=== PATIENT | male | born 1945 | race Caucasian/White ===

== ENCOUNTER 2018-03-07 15:49 | Inpatient (IN) | payer OTHER, BC ==
[2018-03-07] MEDS ORDERED: SODIUM CHLORIDE 1,000 ML IV STA (16:21)
[2018-03-07] MEDS ORDERED: SODIUM CHLORIDE 0.9% 1000 ML INFUS.BAG IV ONE (16:22)
--- NOTE | 2018-03-07 16:28 | PDOC ---
Attending Attestation - Resident Resident Name: Rob Newman - ED Attending Attestation I have performed the following: I have examined & evaluated the patient, The case was reviewed & discussed with the resident, I agree w/resident's findings & plan, Exceptions are as noted - HPI HPI: 03/07/18 16:26 73 yo male wit h/o here with c/o fever 102 from [facility]. and hypotension. per ems pt with hypotension and fever. was given ceftriaxone earlier today for unknown source. has had a cough. no other known pmhx, . 03/07/18 16:29 additional history per [facility] nurse, pt with low grade fever since yesterday. ho hip surgery, PMHX: dvt , hip surgery - Physicial Exam PE: 03/07/18 16:27 awake drowsy, dry mucous membranes, lungs with bilateral crackles, heart reg tachycardia. abd soft nt nd. ext wwp. nuero awake oriented, skin warm and dry and no rash. - Medical Decision Making 03/07/18 16:28 differential: pna, sepsis, dehydration, renal failure, uti, plan iv hydration, septic workup. will cover for HCAP based on severe sepsis, and clinical exam. admit will likely require the ICU <Cate Santiago - Last Filed: 03/07/18 16:29> - HPI HPI: 03/07/18 16:48 The patient is a 73 year old male, with a significant past medical history of chronic embolism, schizophrenia, bipolar disorder, hip replacement, CHF, DVT(of LLE), and hypertension, who presents to the emergency department from [facility] for evaluation of altered mental status, hypotension, and fever since earlier today. Per EMS, the patient has been running a fever as high as 102 F. Since then patient had blood work done, which revealed a decrease in hemoglobin and hematocrit, but no white blood cell count. Per nursing staff, patient was started on Ceftriaxone for unknown source. However, today patient developed changes in mental status and became hypotensive. Patient denies any cough, chest pain, shortness of breath, diaphoresis, or palpitations. No other known pmhx. Allergies: NKDA - Physicial Exam PE: 03/07/18 16:48 GENERAL: Awake, drowsy, in no acute distress HEAD: No signs of trauma EYES: PERRLA, EOMI, sclera anicteric, conjunctiva clear ENT: Auricles normal inspection, hearing grossly normal, nares patent. dRY mucosa NECK: Normal ROM, supple, no lymphadenopathy, JVD, or masses LUNGS: Lungs with bilateral crackles. No wheezing. HEART: +Tachycardic. Regular rhythm, normal S1 and S2, no murmurs, rubs or gallops ABDOMEN: Soft, nontender, normoactive bowel sounds. No guarding, no rebound. No masses EXTREMITIES: Normal range of motion, no edema. No clubbing or cyanosis. No cords, erythema, or tenderness. DP/PT pulses 2+ and symmetric. Warm and well perfused. NEUROLOGICAL: Moves all extremities. Awake and oriented SKIN: Warm, Dry, normal turgor, no rashes or lesions noted. - Medical Decision Making 03/07/18 16:49 - Spoke to son, Zachariah Schulz at( [phone]) who reports the patient is typically with it at baseline and can converse with you. Patient is a full code. Documentation prepared by Chayo Riley, acting as medical collections representative for Cate Santiago MD. <Chayo Riley - Last Filed: 03/07/18 16:52>
[2018-03-07 16:50] LABS: BASO % 0.3 % (0-2.0); HEMATOCRIT 38.4 % (35.4-49); HEMOGLOBIN 13.2 GM/dL (11.7-16.9); LYMPH % 13.1 % (8-40); MCH 33.9 pg (25.7-33.7); MCHC 34.4 g/dl (32.0-35.9); MEAN CELL VOLUME 98.5 fl (80-96); MEAN PLT VOLUME 7.6 fl (7.5-11.1); MONO % 8.4 % (3.8-10.2); NEUT % 78.2 % (42.8-82.8); PLATELET COUNT 183 K/MM3 (134-434); WHITE BLOOD COUNT 7.2 K/mm3 (4.0-10.0)
[2018-03-07 16:58] LABS: INR 1.11 (0.82-1.09); PROTHROMBIN TIME (PATIENT) 12.5 SEC (9.7-13.0)
[2018-03-07 17:01] LABS: ACTIVATED PTT 54.1 SECONDS (26.9-34.4)
[2018-03-07 17:12] LABS: ALBUMIN 2.9 g/dl (3.4-5.0); ALK PHOS 86 U/L (45-117); ANION GAP 13 (8-16); BILIRUBIN,TOTAL 0.4 mg/dL (0.2-1.0); BLOOD UREA NITROGEN 41 mg/dL (7-18); CALCIUM 8.2 mg/dL (8.5-10.1); CHLORIDE 106 mmol/L (98-107); CO2 22 mmol/L (21-32); CREATININE 1.6 mg/dL (0.7-1.3); GLUCOSE,RANDOM 87 mg/dL (74-106); POTASSIUM 4.3 mmol/L (3.5-5.1); SGOT/AST 31 U/L (15-37); SGPT/ALT 14 U/L (12-78); SODIUM 141 mmol/L (136-145); TOT PROT 7.5 g/dl (6.4-8.2)
--- NOTE | 2018-03-07 17:18 | PDOC ---
History of Present Illness - General History Source: Patient, Care Provider, Family Exam Limitations: No Limitations <Cate Santiago - Last Filed: 03/07/18 17:55> - General History Source: Patient, Care Provider, Family Exam Limitations: No Limitations - History of Present Illness Initial Comments: 03/07/18 17:23 The patient is a 73 year old male, with a significant past medical history of chronic embolism, schizophrenia, bipolar disorder, hip replacement, CHF, DVT(of LLE), and hypertension, who presents to the emergency department from [facility] for evaluation of altered mental status, hypotension, and fever since earlier today. Per EMS, the patient has been running a fever as high as 102 F. Since then patient had blood work done, which revealed a decrease in hemoglobin and hematocrit, but no white blood cell count. Per nursing staff, patient was started on Ceftriaxone for unknown source. However, today patient developed changes in mental status and became hypotensive. Patient denies any cough, chest pain, shortness of breath, diaphoresis, or palpitations. No other known pmhx. Allergies: NKDA Past Surgical History: Hip replacement Social History: Non smoker. No ETOH <Chayo Riley - Last Filed: 03/07/18 18:25> - General Chief Complaint: Blood Pressure Problem Stated Complaint: Blood Pressure Problem Time Seen by Provider: 03/07/18 16:07 Past History - Past Medical History COPD: No GI Disorders: Yes (gerd) Psychiatric Problems: Yes (schioaffective) Other medical history: dvt - Suicide/Smoking/Psychosocial Hx Smoking History: Unknown if ever smoked Have you smoked in the past 12 months: No Information on smoking cessation initiated: No Hx Alcohol Use: No Drug/Substance Use Hx: No Substance Use Type: None <Cate Santiago - Last Filed: 03/07/18 17:55> <Chayo Riley - Last Filed: 03/07/18 18:25> - Past Medical History Allergies/Adverse Reactions: Allergies Allergy/AdvReac Type Severity Reaction Status Date / Time No Known Allergies Allergy Verified 03/07/18 18:14 Review of Systems - Review of Systems Able to Perform ROS?: Yes Comments:: 03/07/18 17:24 GENERAL/CONSTITUTIONAL: +Fever, drowsiness, low blood pressure. No chills. No weakness. HEAD, EYES, EARS, NOSE AND THROAT: No change in vision. No ear pain or discharge. No sore throat. CARDIOVASCULAR: No chest pain or shortness of breath. RESPIRATORY: No cough, wheezing, or hemoptysis. GASTROINTESTINAL: No nausea, vomiting, diarrhea or constipation. GENITOURINARY: No dysuria, frequency, or change in urination. MUSCULOSKELETAL: No joint or muscle swelling or pain. No neck or back pain. SKIN: No rash NEUROLOGIC: +Altered mental status. No headache, vertigo, loss of consciousness , or change in strength/sensation. ENDOCRINE: No increased thirst. No abnormal weight change. HEMATOLOGIC/LYMPHATIC: No anemia, easy bleeding, or history of blood clots. ALLERGIC/IMMUNOLOGIC: No hives or skin allergy. <Chayo Riley - Last Filed: 03/07/18 18:25> *Physical Exam - Vital Signs Last Vital Signs Temp Pulse Resp BP Pulse Ox 100.0 F H 72 25 H 93/56 92 L 03/07/18 16:07 03/07/18 16:54 03/07/18 16:54 03/07/18 16:54 03/07/18 16:54 <Cate Santiago - Last Filed: 03/07/18 17:55> - Vital Signs Last Vital Signs Temp Pulse Resp BP Pulse Ox 100.0 F H 72 25 H 93/56 92 L 03/07/18 16:07 03/07/18 16:54 03/07/18 16:54 03/07/18 16:54 03/07/18 16:54 - Physical Exam Comments: 03/07/18 17:23 GENERAL: Awake, drowsy, in no acute distress HEAD: No signs of trauma EYES: PERRLA, EOMI, sclera anicteric, conjunctiva clear ENT: Auricles normal inspection, hearing grossly normal, nares patent. dRY mucosa NECK: Normal ROM, supple, no lymphadenopathy, JVD, or masses LUNGS: Lungs with bilateral crackles. No wheezing. HEART:. Regular rate and rhythm, normal S1 and S2, no murmurs, rubs or gallops ABDOMEN: Soft, nontender, normoactive bowel sounds. No guarding, no rebound. No masses EXTREMITIES: Normal range of motion, no edema. No clubbing or cyanosis. No cords, erythema, or tenderness. DP/PT pulses 2+ and symmetric. Warm and well perfused. NEUROLOGICAL: Moves all extremities. Awake and orientedx2. Lethargic SKIN: Warm, Dry, normal turgor, no rashes or lesions noted. <Chayo Riley - Last Filed: 03/07/18 18:25> Heart Score/ECG Review #1 ECG reviewed & interpreted by me at: 16:20 General ECG Interpretation: Sinus Rhythm, Normal Rate, Normal Intervals Compared to previous ECG there are: Other (st depression v2 - 4.) <Cate Santiago - Last Filed: 03/07/18 17:55> - ECG Intrepretation Comment:: 03/07/18 18:24 Repeat ECG at 17:44:32 Vent Rate: 83 bpm IMPRESSION: Sinus rhythm with premature atrial complexes. Left axis deviation. Low voltage QRS. Nonspecific ST abnormality. <Chayo Riley - Last Filed: 03/07/18 18:25> ED Treatment Course - LABORATORY CBC & Chemistry Diagram: 03/07/18 16:28 03/07/18 16:28 - ADDITIONAL ORDERS Additional order review: Laboratory Results 03/07/18 16:28 PT with INR 12.50 INR 1.11 PTT (Actin FS) 54.1 H 03/07/18 16:28 RBC 3.90 L MCV 98.5 H MCHC 34.4 RDW 14.0 MPV 7.6 Neutrophils % 78.2 Lymphocytes % 13.1 Monocytes % 8.4 Eosinophils % 0.0 Basophils % 0.3 - RADIOLOGY Radiology Studies Ordered: Category Date Time Status CHEST X-RAY PORTABLE* [RAD] Stat Radiology 03/07/18 16:21 Ordered <Cate Santiago - Last Filed: 03/07/18 17:55> - LABORATORY CBC & Chemistry Diagram: 03/07/18 16:28 03/07/18 16:28 - ADDITIONAL ORDERS Additional order review: Laboratory Results 03/07/18 03/07/18 03/07/18 16:28 16:28 16:28 PT with INR INR PTT (Actin FS) Sodium 141 Potassium 4.3 Chloride 106 Carbon Dioxide 22 Anion Gap 13 BUN 41 H Creatinine 1.6 H Creat Clearance w eGFR 42.58 Random Glucose 87 Lactic Acid 1.5 Calcium 8.2 L Total Bilirubin 0.4 AST 31 ALT 14 Alkaline Phosphatase 86 Troponin I 0.13 H Total Protein 7.5 Albumin 2.9 L 03/07/18 16:28 PT with INR 12.50 INR 1.11 PTT (Actin FS) 54.1 H Sodium Potassium Chloride Carbon Dioxide Anion Gap BUN Creatinine Creat Clearance w eGFR Random Glucose Lactic Acid Calcium Total Bilirubin AST ALT Alkaline Phosphatase Troponin I Total Protein Albumin 03/07/18 16:28 RBC 3.90 L MCV 98.5 H MCHC 34.4 RDW 14.0 MPV 7.6 Neutrophils % 78.2 Lymphocytes % 13.1 Monocytes % 8.4 Eosinophils % 0.0 Basophils % 0.3 <Chayo Riley - Last Filed: 03/07/18 18:25> Medical Decision Making - Medical Decision Making 03/07/18 17:14 73 yo M h/o schizophrenia, dvt, hip surgery, in [facility] rehab for fever starting yesterday and AMS, decreased po intake, cough. given ceftriaxone at rehab. on exam bilat diffuse crackles, dry mucous membranes, heart reg no mrg. abd soft nt nd. ext wwp no edema. no rash. nuero alert oriented x 2, moves all ext, lethargic. differential pna, renal failure, sepsis uti, anemia, mi, plan ivf, abx, cxr tele , will require admission for septic shock. to icu. <Cate Santiago - Last Filed: 03/07/18 17:55> - Medical Decision Making 03/07/18 16:49 Spoke to son, Zachariah Schulz at( [phone]) who reports the patient is typically with it at baseline and can converse with you. Patient is a full code. 03/07/18 17:21 Medications: ABILIFY BUPROPION 150 MG VALPROIC ACID 750 MG GABAPENTIN 400 MG 3 X PER DAY LOVENOX 40 MG AMLODIPINE 5MG PROTONIX 5 MG MIRALAX/ FOLIC ACID AMPICILLIN 3.375 G First call placed to Dr. Conley at 17:21. Awaiting call back. Second call placed to Dr. Conley at 17:50. Awaiting call back Case discussed with Dr. Conley at 17:53 <Chayo Riley - Last Filed: 03/07/18 18:25> *DC/Admit/Observation/Transfer - Discharge Dispostion Admit: Yes <Cate Santiago - Last Filed: 03/07/18 17:55> - Attestations Scribe Attestion: 03/07/18 17:24 Documentation prepared by Chayo Riley, acting as certified medical records coder for Cate Santiago MD. <Chayo Riley - Last Filed: 03/07/18 18:25> Diagnosis at time of Disposition: Pneumonia, Septic shock - Referrals Referrals: Danae Ralph MD [Primary Care Provider] - - Patient Instructions - Post Discharge Activity
--- NOTE | 2018-03-07 17:38 | HP ---
Admitting History and Physical - Admission Chief Complaint: fever, low bp History of Present Illness: HPI This is a 73 year old male with pmhx 30 year hx of schizophrenia/bipolar disorder, , hip replacement 09/2017 at [facility] then went to [facility] 3 years, brother is not aware of reported hx of chronic embolism, CHF, DVT(of LLE) , and hypertension. Per ED pt was sent from [facility] for AMS, hypotension, and fever. tmax 102 in EMS. Pt had blood work completed at [facility] showing anemia, no wbc and empirically started on ceftriaxone. Per brother last june he had a breakdown and was transferred to [facility] psych facility 08/2107 and then transferred to [facility] SInce this time he has mobility had worsened and he needed hip sx. Following surgery his mental status has been stable with regards to his schizophrenia and largely been working on his mobility and PT. Other than this time, pt has been stable and independent for 30 years. Today in ED, pt states he feels "shitty", the oxygen is helping him, he is not cold, has cp, or abd pain. History Source: Family Member, Medical Record - Past Medical History Cardiovascular: Yes: CHF, HTN Psych: Yes: Bipolar, Schizophrenia - Past Surgical History Past Surgical History: Yes: TURP - Smoking History Smoking history: Unknown if ever smoked Have you smoked in the past 12 months: No - Alcohol/Substance Use Hx Alcohol Use: No - Social History Usual Living Arrangement: Yes: Assisted Living ADL: Independent Home Medications - Allergies Allergies/Adverse Reactions: Allergies Allergy/AdvReac Type Severity Reaction Status Date / Time ciprofloxacin [From Cipro] Allergy Verified 03/07/18 18:39 - Home Medications Home Medications: Ambulatory Orders Aripiprazole [Abilify] 5 mg PO DAILY 03/07/18 Bisacodyl [Dulcolax] 10 mg RC Q3D 03/07/18 Bupropion HCl [Wellbutrin Sr] 150 mg PO DAILY 03/07/18 Enoxaparin [Lovenox -] 40 mg SQ DAILY 03/07/18 Folic Acid 1 mg PO DAILY 03/07/18 Gabapentin 400 mg PO TID 03/07/18 Multivitamins [Tab-A-Vit -] 1 tab PO DAILY 03/07/18 Pantoprazole Sodium 40 mg PO DAILY 03/07/18 Piperacillin Sodium/Tazobactam [Piperacil-Tazobact 3.375 gm Vl] 3.375 gm IV TID 03/07/18 Polyethylene Glycol 3350 [Miralax (For Daily Use) -] 17 gm PO DAILY 03/07/18 Valproic Acid [Depakene] 750 mg PO BID 03/07/18 Review of Systems - Review of Systems Constitutional: reports: Fever, Lethargy, Weakness Eyes: reports: No Symptoms HENT: reports: No Symptoms Neck: reports: No Symptoms Cardiovascular: reports: No Symptoms Respiratory: reports: SOB Gastrointestinal: reports: No Symptoms Genitourinary: reports: No Symptoms Musculoskeletal: reports: No Symptoms Integumentary: reports: No Symptoms Neurological: reports: No Symptoms Endocrine: reports: No Symptoms Hematology/Lymphatic: reports: No Symptoms Psychiatric: reports: No Symptoms Physical Examination Vital Signs: Vital Signs Temperature 100.0 F H 03/07/18 16:07 Pulse Rate 72 03/07/18 16:54 Respiratory Rate 25 H 03/07/18 16:54 Blood Pressure 93/56 03/07/18 16:54 O2 Sat by Pulse Oximetry (%) 92 L 03/07/18 16:54 Constitutional: Yes: Diaphoresis, Thin Eyes: Yes: Conjunctiva Clear Neck: Yes: Supple Cardiovascular: Yes: Regular Rate and Rhythm, S1, S2 Respiratory: Yes: Diminished, Rhonchi, Other (on non rebreather) Gastrointestinal: Yes: Normal Bowel Sounds, Soft Extremities: Yes: WNL Edema: No Peripheral Pulses WNL: Yes Neurological: Yes: Alert, Cran Nerves II-XII Intact, Lethargy Psychiatric: Yes: Alert, Oriented Labs: CBC, BMP 03/07/18 16:28 03/07/18 16:28 Imaging - Results Chest X-ray: Image Reviewed Problem List - Problems (1) Schizo affective schizophrenia Code(s): F25.0 - SCHIZOAFFECTIVE DISORDER, BIPOLAR TYPE (2) MARVIN (acute kidney injury) Code(s): N17.9 - ACUTE KIDNEY FAILURE, UNSPECIFIED (3) Pneumonia Code(s): J18.9 - PNEUMONIA, UNSPECIFIED ORGANISM Qualifiers: Laterality: bilateral Lung location: lower lobe of lung (4) Septic shock Code(s): A41.9 - SEPSIS, UNSPECIFIED ORGANISM; R65.21 - SEVERE SEPSIS WITH SEPTIC SHOCK Assessment/Plan Assessment: 73 year old male admitted with septic shock Plan: 1. Septic shock - Likely due to pna, ?Uti, await final cxr read - BP improved after 2L NS - Continue IVF Ns 83cc/hr, monitor resp status - Keep MAP >65 - LA wnl now, repeat in 4 hrs - Vanco, zosyn given in ED - Cont zosyn - Follow BC - Obtain UA, urine cx, sputum cx, urine legionella - ID consulted - ICU consulted for ICU Admission 2. Acute resp failure - Maintaining resp status on non re-breather - Monitor closely - Goal spo2 >92% 3. MARVIN - Likely due to sepsis - Continue IVF 4. Elevated trop - Likely due to above - Trend CE x3 5. Schizophrenia - Cont current meds, monitor resp mental status 6. s/p Hip sx, hx of DVT, ?chronic embolism - PT evaluation when medically stable - daily lovenox 7. DVT - Lovenox sq Visit type - Emergency Visit Emergency Visit: Yes ED Registration Date: 03/07/18 Care time: The patient presented to the Emergency Department on the above date and was hospitalized for further evaluation of their emergent condition. - New Patient This patient is new to me today: Yes Date on this admission: 03/12/18 - Critical Care Critical Care patient: No Hospitalist Screening - Colonoscopy Questionnaire Colonoscopy Questionnaire: Colonoscopy Questionnaire - Patient: 50 - 75 years old and never had a screening colonoscopy: Unknown History of colon or rectal polyps, or CA: Unknown History of IBD, Crohn's disease or UC: Unknown History of abdominal radiation therapy as a child: Unknown - Relative: 1 with colon or rectal CA, or polyps at age 60 or younger: Unknown Colon or rectal CA diagnosed at age 45 or younger: Unknown Multiple relatives with colon or rectal CA: Unknown - Outcome: Screening Result: Negative Screen
[2018-03-07] MEDS ORDERED: PIPERACILLIN/TAZOBACTAM 2.25 GM VIAL IVPB ONE (17:55)
[2018-03-07] MEDS ORDERED: VANCOMYCIN 1 GRAM (PRE-DOCKED) 1,000 MG/250 ML BAG IVPB ONE (17:55)
[2018-03-07] MEDS ORDERED: ALBUTEROL SO4 0.083% IH SOL 2.5 MG/3 ML VIAL.NEB. NEB PRN (18:07)
[2018-03-07] MEDS ORDERED: PIPERACILLIN/TAZOB 2.25 GM 2.25 GM in DEXTROSE 5%-WATER - 50 ML IVPB ONE (18:45)
[2018-03-07] MEDS ORDERED: ACETAMINOPHEN 1000 MG/100 ML VIAL (NON FORMULARY) IVPB ONE (18:45)
[2018-03-07] MEDS ORDERED: ASPIRIN 81 MG CHEWABLE TABLETS PO ONE (18:45)
[2018-03-07] MEDS ORDERED: VANCOMYCIN 1,000 MG in DEXTROSE 5%-WATER - 250 ML IVPB ONE (18:45)
[2018-03-07] MEDS: SODIUM CHLORIDE 1,000 ML IV SCH (19:38)
[2018-03-07] MEDS ORDERED: SODIUM CHLORIDE 500 ML IV STA (19:42)
--- NOTE | 2018-03-07 20:19 | CONSULT ---
Consult - text type - Consultation Consultation Note: Pulm/CCM Pt seen and examined in ICU CC: AMS, hypotension, fever Hx obtained from medical record, staff, as pt obtunded HPI: Briefly Mr Schulz is a 73 year old man with pmhx significant for 30 year hx of schizophrenia/bipolar disorder, hip replacement in 09/2017, TURP 3 years, CHF, DVT(of LLE), hypertension. Pt has been [place] and with slowing improving mobility since hip surgery. Pt had fever, cough, AMS, and hypotension and NH prompting 911 activation. EMS found pt with fever 102, depressed mental status. Per ED pt was sent from [facility] for AMS, hypotension, and fever. tmax 102 in EMS. In ED pt was altered, related feeling poorly but without clear localization of symptoms.VS BP 73/65, RR 25 HR 60. CXR with multifocal pna. Infante with kamaljit pyuria (UA pending) . WBC 7.2, Cr 1.6, trop 0.13, LA 1.5. Pt given IVF, started on HCAP coverage Gil Haile. Transferred to ICU for further care. In ICU pt BP 70/54, RR 13, mental status poor with pooling secretions in posterior airway. Evaluation and management ongoing. Vital Signs Temp 99.5 F 03/07/18 19:19 Pulse 79 03/07/18 19:19 Resp 19 03/07/18 19:19 BP 80/65 03/07/18 19:19 Pulse Ox 100 03/07/18 19:19 Intake & Output 03/06/18 03/07/18 03/07/18 23:59 11:59 23:59 Weight 68.039 kg Other: Height 72 ft Body Mass Index (BMI) 0.1 Weight Measurement Method Estimated by Staff Past Medical History Cardio/Vascular CHF,HTN Psych Bipolar,Schizophrenia Past Surgical History Past Surgical History TURP Ambulatory Orders Aripiprazole [Abilify] 5 mg PO DAILY 03/07/18 Bisacodyl [Dulcolax] 10 mg RC Q3D 03/07/18 Bupropion HCl [Wellbutrin Sr] 150 mg PO DAILY 03/07/18 Enoxaparin [Lovenox -] 40 mg SQ DAILY 03/07/18 Folic Acid 1 mg PO DAILY 03/07/18 Gabapentin 400 mg PO TID 03/07/18 Multivitamins [Tab-A-Vit -] 1 tab PO DAILY 03/07/18 Pantoprazole Sodium 40 mg PO DAILY 03/07/18 Piperacillin Sodium/Tazobactam [Piperacil-Tazobact 3.375 gm Vl] 3.375 gm IV TID 03/07/18 Polyethylene Glycol 3350 [Miralax (For Daily Use) -] 17 gm PO DAILY 03/07/18 Valproic Acid [Depakene] 750 mg PO BID 03/07/18 Active Medications Acetaminophen (Tylenol -) 650 mg PO Q4H PRN PRN Reason: FEVER Albuterol Sulfate (Ventolin 0.083% Nebulizer Soln -) 1 amp NEB Q4H PRN PRN Reason: SHORT OF BREATH/WHEEZING Aripiprazole (Abilify) 5 mg PO DAILY [facility] Bupropion HCl (Wellbutrin Xl -) 150 mg PO DAILY [facility] Chlorhexidine Gluconate (Hibiclens For Decolonization -) 1 applic TP HS [facility] Enoxaparin Sodium (Lovenox -) 40 mg SQ DAILY [facility] Folic Acid (Folic Acid -) 1 mg PO DAILY [facility] Gabapentin (Neurontin -) 400 mg PO TID [facility] Piperacillin Sod/Tazobactam (Sod 2.25 gm/ Dextrose) 50 mls @ 100 mls/hr IVPB Q8H-IV [facility] Sodium Chloride (Normal Saline -) 1,000 mls @ 83 mls/hr IV ASDIR GARRETT Last Admin: 03/07/18 19:38 Dose: Not Given Piperacillin Sod/Tazobactam (Sod 2.25 gm/ Dextrose) 50 mls @ 100 mls/hr IVPB ONCE ONE Stop: 03/08/18 02:29 Sodium Chloride (Normal Saline -) 500 mls @ 500 mls/hr IV ASDIR STA Stop: 03/07/18 20:41 Mupirocin (Bactroban Ointment (For Decolonization) -) 1 applic NS BID [facility] Stop: 03/12/18 21:59 Valproic Acid (Depakene -) 750 mg PO BID [facility] CBCD WBC 7.2 K/mm3 (4.0-10.0) 03/07/18 16:28 RBC 3.90 M/mm3 (4.00-5.60) L 03/07/18 16:28 Hgb 13.2 GM/dL (11.7-16.9) 03/07/18 16:28 Hct 38.4 % (35.4-49) 03/07/18 16:28 MCV 98.5 fl (80-96) H 03/07/18 16:28 MCHC 34.4 g/dl (32.0-35.9) 03/07/18 16:28 RDW 14.0 % (11.9-15.9) 03/07/18 16:28 Plt Count 183 K/MM3 (134-434) 03/07/18 16:28 MPV 7.6 fl (7.5-11.1) 03/07/18 16:28 CMP Sodium 141 mmol/L (136-145) 03/07/18 16:28 Potassium 4.3 mmol/L (3.5-5.1) 03/07/18 16:28 Chloride 106 mmol/L (98-107) 03/07/18 16:28 Carbon Dioxide 22 mmol/L (21-32) 03/07/18 16:28 Anion Gap 13 (8-16) 03/07/18 16:28 BUN 41 mg/dL (7-18) H 03/07/18 16:28 Creatinine 1.6 mg/dL (0.7-1.3) H 03/07/18 16:28 Creat Clearance w eGFR 42.58 (>60) 03/07/18 16:28 Random Glucose 87 mg/dL (74-106) 03/07/18 16:28 Calcium 8.2 mg/dL (8.5-10.1) L 03/07/18 16:28 Total Bilirubin 0.4 mg/dL (0.2-1.0) 03/07/18 16:28 AST 31 U/L (15-37) 03/07/18 16:28 ALT 14 U/L (12-78) 03/07/18 16:28 Alkaline Phosphatase 86 U/L (45-117) 03/07/18 16:28 Total Protein 7.5 g/dl (6.4-8.2) 03/07/18 16:28 Albumin 2.9 g/dl (3.4-5.0) L 03/07/18 16:28 CARDIAC ENZYMES Troponin I 0.13 ng/ml (0.00-0.05) H 03/07/18 16:28 ROS: unable due to pt clinical condition CXR: L> R multifocal pna, L base with likely small effusion/atelectasis EKG: SR with few PAC, Left axis, no ischemic changes PE: Gen: eld man, moderately toxic appearing, poorly responsive HEENT: PERRL, NCAT, no JVP, some wasting, pooling oral secretions Pulm: coarse bilaterally CV: RRR, no m/r/g appreciated, non displaced PMI ABD; soft, NT, ND, no Hepatosplenomegaly ext: cool, weak peripheral pulses Neuro:weakly withdrawals bilaterally from noxious stimuli, appears non focal, no A/ 73 yo man [facility] resident with mulitfocal pna and likely urosepsis with AMS P/ -volume resuscitation 30cc/kg, trend lactate -intubate for airway protection/resp failure, not candiate for NIV given oral secretions and poor mental status -broad spectum abx, agree with Vanc and PT for now, would add second gram neg coverage -f/u cxl, ID to follow -hold antipsychotics given worsening mental status -PPI if cont shock and DVT bibi Tipton ACNP 4412 35Min CCT Critical Care Total Critical Care Time (in minutes): 35 Critical Care Statement: The care of this patient involved high complexity decision making to prevent further life threatening deterioration of the patient 's condition and/or to evaluate & treat vital organ system(s) failure or risk of failure.
[2018-03-07 20:31] LABS: ARTERIAL BLD GAS O2 SATURATION 97.2 % (90-98.9); ARTERIAL BLOOD GAS BASE EXCESS -3.9 meq/l (-2-2); ARTERIAL BLOOD GAS PCO2 38.6 mmHg (35-45); ARTERIAL BLOOD GAS PO2 95.1 mmHg (70-100); ARTERIAL BLOOD GAS pH 7.35 (7.35-7.45)
[2018-03-07] MEDS ORDERED: MIDAZOLAM HCL 5 MG/1 ML Single Dose Vial ONE (21:06)
[2018-03-07] MEDS ORDERED: SUCCINYLCHOLINE CHLORIDE 200 MG/10 ML VIAL ONE (21:06)
[2018-03-07] MEDS ORDERED: NOREPINEPHRINE BITARTRATE 4 MG/4 ML ML IV ONE (21:07)
[2018-03-07 21:23] LABS: URINE APPEARANCE TURBID; URINE BILIRUBIN NEGATIVE (<2.0 mg/dL); URINE COLOR AMBER; URINE GLUCOSE (UA) NEGATIVE (NEGATIVE); URINE KETONE TRACE (NEGATIVE); URINE NITRITE POSITIVE (NEGATIVE); URINE UROBILINOGEN NEGATIVE mg/dL (0.2-1.0)
[2018-03-07 21:24] LABS: URINE LEUK ESTERASE 2+ (NEGATIVE); URINE PROTEIN 2+ (NEGATIVE)
[2018-03-07 21:25] LABS: ALLENS TEST POSITIVE
[2018-03-07] MEDS: SUCCINYLCHOLINE CHLORIDE 200 MG/10 ML VIAL IVPUSH ONE ×2 (21:53→21:54)
[2018-03-07] MEDS: MIDAZOLAM HCL 2 MG/2 ML SINGLE DOSE VIAL IVPUSH ONE ×2 (21:53→21:54)
[2018-03-07] MEDS ORDERED: LACTATED RINGERS SOLUTION 1000 ML INFUS.BAG IV ONE ×2 (21:57→23:10)
--- NOTE | 2018-03-07 22:14 | PROC ---
Intubation - Intubation Reason for Intubation: Airway Protection, Ventilatory Failure Time of Intubation: 22:13 Intubation Method: orotracheal Blade used: Mac Tube Size (cm): 7.5 Tube position @ lip (cm): 24 Tube position confirmed by: CO2 detector, Chest x-ray, Breath sounds Breath Sounds after Intubation: equal Post Intubation Xray: Yes (ordered and pending) Remarks: Smooth induction with Versed, Fent, Succ. Mac IV blade, Grade 1 View, Atraumatic intubation. Secured 24cm at teeth. + ETCO2, + BS bilaterally, none over epigastrim. tolerated well. CXR orderd.
--- NOTE | 2018-03-07 22:15 | PROC ---
Central Line Insertion Indication: CVP Monitoring, Sepsis, Vasopressor Risks and Benefits Explained: Yes (Brother HCP) Consent on Chart: Yes Central Line: Triple Lumen Catheter Anesthesia: 1% Lidocaine Sterile Technique: Yes Ultrasound Guided Assistance: No Position: Left Subclavian Post Insertion: Yes: Bilateral Breath Sounds, Bilateral Chest Expansion, Chest X-Ray Ordered Sterile Dressing Applied: Yes
[2018-03-07] MEDS ORDERED: NOREPINEPHRINE BITARTRATE 8,000 MCG in DEXTROSE 5%-WATER - 492 ML IV SCH (22:45)
[2018-03-07] MEDS ORDERED: ASPIRIN 81 MG CHEWABLE TABLETS ONE (23:10)
[2018-03-07] MEDS: VALPROIC ACID 250 MG CAPSULE PO SCH (23:13)
[2018-03-07] MEDS: MUPIROCIN 2% TOPICAL OINTMENT FOR DECOLONIZATION NS SCH (23:13)
[2018-03-07] MEDS: GABAPENTIN 400 MG CAPSULE (FP) PO SCH (23:13)
[2018-03-07] MEDS: CHLORHEXIDINE GLUCONATE 4% CLEANSER FOR DECOLONIZATION TP SCH (23:13)
[2018-03-07] MEDS: CHLORHEXIDINE GLUCONATE 0.12% 15ML CUP MM SCH (23:14)
[2018-03-07] MEDS: MIDAZOLAM HCL 2 MG/2 ML SINGLE DOSE VIAL IVPUSH PRN (23:15)
[2018-03-08] MEDS: NOREPINEPHRINE BITARTRATE 8,000 MCG in DEXTROSE 5%-WATER - 492 ML IV SCH (01:13)
[2018-03-08] MEDS: DEXTROSE 5%-0.45% SALINE 1,000 ML IV SCH ×2 (01:16→14:21)
[2018-03-08] MEDS ORDERED: PIPERACILLIN/TAZOBACTAM 2.25 GM VIAL IVPB ONE ×3 (01:19→17:11)
[2018-03-08] MEDS ORDERED: DEXTROSE 5%-WATER - 50 ML IVPB ONE ×3 (01:20→17:11)
[2018-03-08] MEDS: PIPERACILLIN/TAZOB 2.25 GM 2.25 GM in DEXTROSE 5%-WATER - 50 ML IVPB SCH ×3 (01:21→17:20)
[2018-03-08] MEDS ORDERED: PIPERACILLIN/TAZOB 2.25 GM 2.25 GM in DEXTROSE 5%-WATER - 50 ML IVPB SCH (02:00)
[2018-03-08] MEDS ORDERED: PIPERACILLIN/TAZOB 2.25 GM 2.25 GM in DEXTROSE 5%-WATER - 50 ML IVPB ONE (02:00)
[2018-03-08] MEDS: GABAPENTIN 400 MG CAPSULE (FP) PO SCH ×3 (06:14→21:49)
[2018-03-08 06:44] LABS: BASO % 0.2 % (0-2.0); HEMATOCRIT 30.4 % (35.4-49); HEMOGLOBIN 10.6 GM/dL (11.7-16.9); LYMPH % 12.8 % (8-40); MCH 34.3 pg (25.7-33.7); MCHC 34.8 g/dl (32.0-35.9); MEAN CELL VOLUME 98.7 fl (80-96); MEAN PLT VOLUME 7.7 fl (7.5-11.1); MONO % 9.4 % (3.8-10.2); NEUT % 77.6 % (42.8-82.8); PLATELET COUNT 136 K/MM3 (134-434); RBC 3.08 M/mm3 (4.00-5.60); WHITE BLOOD COUNT 5.9 K/mm3 (4.0-10.0)
[2018-03-08 06:57] LABS: ANION GAP 8 (8-16); BILIRUBIN,TOTAL 0.3 mg/dL (0.2-1.0); BLOOD UREA NITROGEN 22 mg/dL (7-18); CALCIUM 7.2 mg/dL (8.5-10.1); CHLORIDE 112 mmol/L (98-107); CO2 24 mmol/L (21-32); CREATININE 0.6 mg/dL (0.7-1.3); GLUCOSE,RANDOM 92 mg/dL (74-106); MAGNESIUM 1.7 mg/dL (1.8-2.4); PHOSPHOROUS 2.7 mg/dL (2.5-4.9); POTASSIUM 3.8 mmol/L (3.5-5.1); SGOT/AST 29 U/L (15-37); SGPT/ALT 10 U/L (12-78); SODIUM 144 mmol/L (136-145); TOT PROT 5.3 g/dl (6.4-8.2)
[2018-03-08 06:58] LABS: ALK PHOS 55 U/L (45-117)
[2018-03-08] MEDS: MIDAZOLAM 100 MG in SODIUM CHLORIDE 100 ML IVPB SCH (07:15)
[2018-03-08] MEDS ORDERED: MAGNESIUM SULF 50% (8.12 MEQ/2 ML-1 GM VIAL) IVPB ONE (08:13)
--- NOTE | 2018-03-08 08:56 | PN ---
Physical Exam: SUBJECTIVE: Patient seen and examined Overnight, pt desatting and hypotensive after fluid resuscitation. Pt was intubated, placed on vent, and underwent left subclavian vein catheter. This am , pt sedated on vent, non-responsive to verbal or physical stimuli. OBJECTIVE: Vital Signs Period Temp Pulse Resp BP Sys/[place] Pulse Ox Last 24 Hr 97.8 F-100.0 F 51-84 10-25 70-130/54-81 87-100 GENERAL: elderly male, lying in bed, on vent, with NG tube, non-responsive HEENT: NC, AT, vented LUNGS: mechanical breath sounds, left-sided rales HEART: RRR, no murmurs appreciated ABDOMEN: soft, NT, ND EXTREMITIES: no edema NEUROLOGICAL: non-responsive to verbal or physical stimuli Laboratory Results - last 24 hr 03/07/18 03/07/18 03/07/18 16:28 16:28 16:28 WBC 7.2 RBC 3.90 L Hgb 13.2 Hct 38.4 MCV 98.5 H MCH 33.9 H MCHC 34.4 RDW 14.0 Plt Count 183 MPV 7.6 Neutrophils % 78.2 Lymphocytes % 13.1 Monocytes % 8.4 Eosinophils % 0.0 Basophils % 0.3 PT with INR 12.50 INR 1.11 PTT (Actin FS) 54.1 H Puncture Site ABG pH ABG pCO2 at Pt Temp ABG pO2 at Pt Temp ABG HCO3 ABG O2 Sat (Measured) ABG O2 Content ABG Base Excess Jordon Test Oxygen Flow Rate Sodium 141 Potassium 4.3 Chloride 106 Carbon Dioxide 22 Anion Gap 13 BUN 41 H Creatinine 1.6 H Creat Clearance w eGFR 42.58 Random Glucose 87 Lactic Acid Calcium 8.2 L Phosphorus Magnesium Total Bilirubin 0.4 AST 31 ALT 14 Alkaline Phosphatase 86 Creatine Kinase Creatine Kinase Index CK-MB (CK-2) Troponin I Total Protein 7.5 Albumin 2.9 L Urine Color Urine Appearance Urine pH Ur Specific [place] Urine Protein Urine Glucose (UA) Urine Ketones Urine Blood Urine Nitrite Urine Bilirubin Urine Urobilinogen Ur Leukocyte Esterase Urine WBC (Auto) Urine RBC (Auto) 03/07/18 03/07/18 03/07/18 16:28 16:28 19:01 WBC RBC Hgb Hct MCV MCH MCHC RDW Plt Count MPV Neutrophils % Lymphocytes % Monocytes % Eosinophils % Basophils % PT with INR INR PTT (Actin FS) Puncture Site ABG pH ABG pCO2 at Pt Temp ABG pO2 at Pt Temp ABG HCO3 ABG O2 Sat (Measured) ABG O2 Content ABG Base Excess Jordon Test Oxygen Flow Rate Sodium Potassium Chloride Carbon Dioxide Anion Gap BUN Creatinine Creat Clearance w eGFR Random Glucose Lactic Acid 1.5 1.8 Calcium Phosphorus Magnesium Total Bilirubin AST ALT Alkaline Phosphatase Creatine Kinase Creatine Kinase Index CK-MB (CK-2) Troponin I 0.13 H Total Protein Albumin Urine Color Urine Appearance Urine pH Ur Specific [place] Urine Protein Urine Glucose (UA) Urine Ketones Urine Blood Urine Nitrite Urine Bilirubin Urine Urobilinogen Ur Leukocyte Esterase Urine WBC (Auto) Urine RBC (Auto) 03/07/18 03/07/18 03/07/18 20:05 20:30 22:00 WBC RBC Hgb Hct MCV MCH MCHC RDW Plt Count MPV Neutrophils % Lymphocytes % Monocytes % Eosinophils % Basophils % PT with INR INR PTT (Actin FS) Puncture Site Right radial ABG pH 7.35 ABG pCO2 at Pt Temp 38.6 ABG pO2 at Pt Temp 95.1 ABG HCO3 20.8 L ABG O2 Sat (Measured) 97.2 ABG O2 Content 13.2 L ABG Base Excess -3.9 L Jordon Test Positive Oxygen Flow Rate 100 Sodium Potassium Chloride Carbon Dioxide Anion Gap BUN Creatinine Creat Clearance w eGFR Random Glucose Lactic Acid Calcium Phosphorus Magnesium Total Bilirubin AST ALT Alkaline Phosphatase Creatine Kinase 534 H Creatine Kinase Index 0.2 CK-MB (CK-2) 1.477 Troponin I 0.12 H Total Protein Albumin Urine Color Mikaela Urine Appearance Turbid Urine pH 5.0 Ur Specific [place] 1.020 Urine Protein 2+ H Urine Glucose (UA) Negative Urine Ketones Trace H Urine Blood 1+ H Urine Nitrite Positive Urine Bilirubin Negative Urine Urobilinogen Negative Ur Leukocyte Esterase 2+ H Urine WBC (Auto) 2357 Urine RBC (Auto) 67 03/08/18 03/08/18 06:10 06:10 WBC 5.9 RBC 3.08 L D Hgb 10.6 L D Hct 30.4 L D MCV 98.7 H MCH 34.3 H MCHC 34.8 RDW 14.0 Plt Count 136 D MPV 7.7 Neutrophils % 77.6 Lymphocytes % 12.8 Monocytes % 9.4 Eosinophils % 0.0 Basophils % 0.2 PT with INR INR PTT (Actin FS) Puncture Site ABG pH ABG pCO2 at Pt Temp ABG pO2 at Pt Temp ABG HCO3 ABG O2 Sat (Measured) ABG O2 Content ABG Base Excess Jordon Test Oxygen Flow Rate Sodium 144 Potassium 3.8 Chloride 112 H Carbon Dioxide 24 Anion Gap 8 BUN 22 H D Creatinine 0.6 L D Creat Clearance w eGFR > 60 Random Glucose 92 Lactic Acid Calcium 7.2 L Phosphorus 2.7 Magnesium 1.7 L Total Bilirubin 0.3 D AST 29 ALT 10 L D Alkaline Phosphatase 55 D Creatine Kinase Creatine Kinase Index CK-MB (CK-2) Troponin I Total Protein 5.3 L D Albumin 2.0 L D Urine Color Urine Appearance Urine pH Ur Specific [place] Urine Protein Urine Glucose (UA) Urine Ketones Urine Blood Urine Nitrite Urine Bilirubin Urine Urobilinogen Ur Leukocyte Esterase Urine WBC (Auto) Urine RBC (Auto) Active Medications Generic Name Dose Route Start Last Admin Trade Name Freq PRN Reason Stop Dose Admin Acetaminophen 650 mg 03/07/18 19:42 Tylenol - PO Q4H PRN FEVER Albuterol Sulfate 1 amp 03/07/18 18:07 Ventolin 0.083% Nebulizer Soln - NEB Q4H PRN SHORT OF BREATH/WHEEZING Aripiprazole 5 mg 03/08/18 10:00 Abilify PO DAILY G[facility]RETT Bupropion HCl 150 mg 03/08/18 10:00 Wellbutrin Xl - PO DAILY [facility] Chlorhexidine Gluconate 1 applic 03/07/18 22:00 03/07/18 23:13 Hibiclens For Decolonization - TP 1 applic HS GARRETT Administration Chlorhexidine Gluconate 15 ml 03/07/18 23:15 03/07/18 23:14 Peridex - MM 15 ml BID G[facility]RETT Administration Enoxaparin Sodium 40 mg 03/08/18 10:00 Lovenox - SQ DAILY G[facility] Fentanyl 50 mcg 03/07/18 20:48 03/08/18 06:14 Sublimaze Injection - IVPUSH 03/08/18 20:59 50 mcg Q1H PRN Administration PAIN Folic Acid 1 mg 03/08/18 10:00 Folic Acid - PO DAILY [facility] Gabapentin 400 mg 03/07/18 22:00 03/08/18 06:14 Neurontin - PO 400 mg TID GARRETT Administration Sodium Chloride 1,000 mls @ 83 mls/hr 03/07/18 18:15 03/07/18 19:38 Normal Saline - IV Not Given ASDIR GARRETT Piperacillin Sod/Tazobactam 50 mls @ 100 mls/hr 03/08/18 02:00 03/08/18 01:21 Sod 2.25 gm/ Dextrose IVPB Not Given Q8H-IV GARRETT Protocol Norepinephrine Bitartrate 8, 500 mls @ 18.75 mls/hr 03/07/18 22:45 000 mcg/ Dextrose IV TITR GARRETT Protocol 5 MCG/MIN Famotidine/Sodium Chloride 20 mg in 50 mls @ 100 mls/hr 03/08/18 10:00 Pepcid 20 Mg Premixed Ivpb - IVPB DAILY [facility] Norepinephrine Bitartrate 8, 500 mls @ 18.75 mls/hr 03/07/18 23:15 03/08/18 01:13 000 mcg/ Dextrose IV Not Given TITR GARRETT Protocol 5 MCG/MIN Dextrose/Sodium Chloride 1,000 mls @ 75 mls/hr 03/07/18 23:30 03/08/18 01:16 D5-1/2ns - IV 75 mls/hr ASDIR GARRETT Administration Midazolam HCl 100 mg/ Sodium 100 mls @ 1 mls/hr 03/08/18 07:00 03/08/18 08:00 Chloride IVPB 4 mg/hr TITR GARRETT 4 mls/hr Protocol Titration 1 MG/HR Magnesium Sulfate/Dextrose 1 gm in 100 mls @ 100 mls/hr 03/08/18 09:00 Magnesium 1gm/D5w - IVPB 03/08/18 09:59 ONCE ONE Midazolam HCl 2 mg 03/07/18 22:57 03/07/18 23:15 Versed - IVPUSH 2 mg Q2H PRN Administration AGITATION Mupirocin 1 applic 03/07/18 22:00 03/07/18 23:13 Bactroban Ointment (For Decolonization) - NS 03/12/18 21:59 1 applic BID GARRETT Administration Oseltamivir Phosphate 75 mg 03/08/18 10:00 Tamiflu - NGT 03/13/18 09:59 BID G[facility] Pneumococcal 13-Valent Conj Vacc 0.5 ml 03/08/18 10:00 Prevnar 13 Syringe - IM 03/08/18 10:01 .ONCE ONE Valproic Acid 750 mg 03/07/18 22:00 03/07/18 23:13 Depakene - PO 750 mg BID GARRETT Administration ASSESSMENT/PLAN: 73M w/ hx of schizophrenia, bipolar disorder, DVT, CHF, HTN, TURP, recent hip replacement who presented from [facility] AMS, hypotension, and fever, was found to have +UA, CXR showing LLL infiltrate, and + influenza B, admitted to ICU for severe sepsis. ID #severe sepsis- 2/2 UTI vs. PNA vs. flu -ID on board, appreciate recs -f/u Ucx, Bcx, and Scx -no leukocytosis, afebrile -APAP for fever -central line in place, but MAPs ok without need for pressors -continue zosyn and tamiflu as per ID -D5-1/2NS @ 75 -contact precautions CV #HTN -home meds held 2/2 hypotension #CHF -pt not in fluid overload state Hematology #anemia -Hgb of 10.6, down from 13.2 likely dilutional. -continue to trend Renal #MARVIN -resolved, creatinine of 0.6 today Resp #acute hypoxic respiratory failure -intubated on vent -versed gtt for sedatioin -albuterol nebs PRN Psych #schizophrenia and bipolar -continue home meds including neurontin, valproic acid, and bupropion FEN/ppx -D5-1/2NS @ 75 -Mg repleted -NPO -pepcid for GI ppx -lovenox 40 Case discussed with attending, Dr. Conley. -Erik Lees MD PGY1 Visit type - Emergency Visit Emergency Visit: Yes ED Registration Date: 03/07/18 Care time: The patient presented to the Emergency Department on the above date and was hospitalized for further evaluation of their emergent condition. - New Patient This patient is new to me today: No - Critical Care Critical Care patient: Yes Total Critical Care Time (in minutes): 40 Critical Care Statement: The care of this patient involved high complexity decision making to prevent further life threatening deterioration of the patient 's condition and/or to evaluate & treat vital organ system(s) failure or risk of failure.
[2018-03-08] MEDS ORDERED: MAGNESIUM 1GM/D5W - 1 GM/100 ML IVPB IVPB ONE (09:00)
--- NOTE | 2018-03-08 09:33 | PN ---
Physical Exam: SUBJECTIVE: Patient seen and examined OBJECTIVE: Vital Signs Period Temp Pulse Resp BP Sys/[place] Pulse Ox Last 24 Hr 97.8 F-100.0 F 51-84 10-25 70-130/54-81 87-100 GENERAL: The patient is awake, alert, and fully oriented, in no acute distress. HEAD: Normal with no signs of trauma. EYES: PERRL, extraocular movements intact, sclera anicteric, conjunctiva clear. No ptosis. ENT: Ears normal, nares patent, oropharynx clear without exudates, moist mucous membranes. NECK: Trachea midline, full range of motion, supple. LUNGS: Breath sounds equal, clear to auscultation bilaterally, no wheezes, no crackles, no accessory muscle use. HEART: Regular rate and rhythm, S1, S2 without murmur, rub or gallop. ABDOMEN: Soft, nontender, nondistended, normoactive bowel sounds, no guarding, no rebound, no hepatosplenomegaly, no masses. EXTREMITIES: 2+ pulses, warm, well-perfused, no edema. NEUROLOGICAL: Cranial nerves II through XII grossly intact. Normal speech, gait not observed. PSYCH: Normal mood, normal affect. SKIN: Warm, dry, normal turgor, no rashes or lesions noted Laboratory Results - last 24 hr 03/07/18 03/07/18 03/07/18 16:28 16:28 16:28 WBC 7.2 RBC 3.90 L Hgb 13.2 Hct 38.4 MCV 98.5 H MCH 33.9 H MCHC 34.4 RDW 14.0 Plt Count 183 MPV 7.6 Neutrophils % 78.2 Lymphocytes % 13.1 Monocytes % 8.4 Eosinophils % 0.0 Basophils % 0.3 PT with INR 12.50 INR 1.11 PTT (Actin FS) 54.1 H Puncture Site ABG pH ABG pCO2 at Pt Temp ABG pO2 at Pt Temp ABG HCO3 ABG O2 Sat (Measured) ABG O2 Content ABG Base Excess Jordon Test Oxygen Flow Rate Sodium 141 Potassium 4.3 Chloride 106 Carbon Dioxide 22 Anion Gap 13 BUN 41 H Creatinine 1.6 H Creat Clearance w eGFR 42.58 Random Glucose 87 Lactic Acid Calcium 8.2 L Phosphorus Magnesium Total Bilirubin 0.4 AST 31 ALT 14 Alkaline Phosphatase 86 Creatine Kinase Creatine Kinase Index CK-MB (CK-2) Troponin I Total Protein 7.5 Albumin 2.9 L Urine Color Urine Appearance Urine pH Ur Specific [place] Urine Protein Urine Glucose (UA) Urine Ketones Urine Blood Urine Nitrite Urine Bilirubin Urine Urobilinogen Ur Leukocyte Esterase Urine WBC (Auto) Urine RBC (Auto) 03/07/18 03/07/18 03/07/18 16:28 16:28 19:01 WBC RBC Hgb Hct MCV MCH MCHC RDW Plt Count MPV Neutrophils % Lymphocytes % Monocytes % Eosinophils % Basophils % PT with INR INR PTT (Actin FS) Puncture Site ABG pH ABG pCO2 at Pt Temp ABG pO2 at Pt Temp ABG HCO3 ABG O2 Sat (Measured) ABG O2 Content ABG Base Excess Jordon Test Oxygen Flow Rate Sodium Potassium Chloride Carbon Dioxide Anion Gap BUN Creatinine Creat Clearance w eGFR Random Glucose Lactic Acid 1.5 1.8 Calcium Phosphorus Magnesium Total Bilirubin AST ALT Alkaline Phosphatase Creatine Kinase Creatine Kinase Index CK-MB (CK-2) Troponin I 0.13 H Total Protein Albumin Urine Color Urine Appearance Urine pH Ur Specific [place] Urine Protein Urine Glucose (UA) Urine Ketones Urine Blood Urine Nitrite Urine Bilirubin Urine Urobilinogen Ur Leukocyte Esterase Urine WBC (Auto) Urine RBC (Auto) 03/07/18 03/07/18 03/07/18 20:05 20:30 22:00 WBC RBC Hgb Hct MCV MCH MCHC RDW Plt Count MPV Neutrophils % Lymphocytes % Monocytes % Eosinophils % Basophils % PT with INR INR PTT (Actin FS) Puncture Site Right radial ABG pH 7.35 ABG pCO2 at Pt Temp 38.6 ABG pO2 at Pt Temp 95.1 ABG HCO3 20.8 L ABG O2 Sat (Measured) 97.2 ABG O2 Content 13.2 L ABG Base Excess -3.9 L Jordon Test Positive Oxygen Flow Rate 100 Sodium Potassium Chloride Carbon Dioxide Anion Gap BUN Creatinine Creat Clearance w eGFR Random Glucose Lactic Acid Calcium Phosphorus Magnesium Total Bilirubin AST ALT Alkaline Phosphatase Creatine Kinase 534 H Creatine Kinase Index 0.2 CK-MB (CK-2) 1.477 Troponin I 0.12 H Total Protein Albumin Urine Color Mikaela Urine Appearance Turbid Urine pH 5.0 Ur Specific [place] 1.020 Urine Protein 2+ H Urine Glucose (UA) Negative Urine Ketones Trace H Urine Blood 1+ H Urine Nitrite Positive Urine Bilirubin Negative Urine Urobilinogen Negative Ur Leukocyte Esterase 2+ H Urine WBC (Auto) 2357 Urine RBC (Auto) 67 03/08/18 03/08/18 06:10 06:10 WBC 5.9 RBC 3.08 L D Hgb 10.6 L D Hct 30.4 L D MCV 98.7 H MCH 34.3 H MCHC 34.8 RDW 14.0 Plt Count 136 D MPV 7.7 Neutrophils % 77.6 Lymphocytes % 12.8 Monocytes % 9.4 Eosinophils % 0.0 Basophils % 0.2 PT with INR INR PTT (Actin FS) Puncture Site ABG pH ABG pCO2 at Pt Temp ABG pO2 at Pt Temp ABG HCO3 ABG O2 Sat (Measured) ABG O2 Content ABG Base Excess Jordon Test Oxygen Flow Rate Sodium 144 Potassium 3.8 Chloride 112 H Carbon Dioxide 24 Anion Gap 8 BUN 22 H D Creatinine 0.6 L D Creat Clearance w eGFR > 60 Random Glucose 92 Lactic Acid Calcium 7.2 L Phosphorus 2.7 Magnesium 1.7 L Total Bilirubin 0.3 D AST 29 ALT 10 L D Alkaline Phosphatase 55 D Creatine Kinase Creatine Kinase Index CK-MB (CK-2) Troponin I Total Protein 5.3 L D Albumin 2.0 L D Urine Color Urine Appearance Urine pH Ur Specific [place] Urine Protein Urine Glucose (UA) Urine Ketones Urine Blood Urine Nitrite Urine Bilirubin Urine Urobilinogen Ur Leukocyte Esterase Urine WBC (Auto) Urine RBC (Auto) Active Medications Generic Name Dose Route Start Last Admin Trade Name Freq PRN Reason Stop Dose Admin Acetaminophen 650 mg 03/07/18 19:42 Tylenol - PO Q4H PRN FEVER Albuterol Sulfate 1 amp 03/07/18 18:07 Ventolin 0.083% Nebulizer Soln - NEB Q4H PRN SHORT OF BREATH/WHEEZING Aripiprazole 5 mg 03/08/18 10:00 Abilify PO DAILY [facility] Bupropion HCl 150 mg 03/08/18 10:00 Wellbutrin Xl - PO DAILY [facility] Chlorhexidine Gluconate 1 applic 03/07/18 22:00 03/07/18 23:13 Hibiclens For Decolonization - TP 1 applic HS GARRETT Administration Chlorhexidine Gluconate 15 ml 03/07/18 23:15 03/07/18 23:14 Peridex - MM 15 ml BID GARRETT Administration Enoxaparin Sodium 40 mg 03/08/18 10:00 Lovenox - SQ DAILY [facility] Fentanyl 50 mcg 03/07/18 20:48 03/08/18 06:14 Sublimaze Injection - IVPUSH 03/08/18 20:59 50 mcg Q1H PRN Administration PAIN Folic Acid 1 mg 03/08/18 10:00 Folic Acid - PO DAILY GARRETT Gabapentin 400 mg 03/07/18 22:00 03/08/18 06:14 Neurontin - PO 400 mg TID GARRETT Administration Sodium Chloride 1,000 mls @ 83 mls/hr 03/07/18 18:15 03/07/18 19:38 Normal Saline - IV Not Given ASDIR GARRETT Piperacillin Sod/Tazobactam 50 mls @ 100 mls/hr 03/08/18 02:00 03/08/18 01:21 Sod 2.25 gm/ Dextrose IVPB Not Given Q8H-IV GARRETT Protocol Norepinephrine Bitartrate 8, 500 mls @ 18.75 mls/hr 03/07/18 22:45 000 mcg/ Dextrose IV TITR GARRETT Protocol 5 MCG/MIN Famotidine/Sodium Chloride 20 mg in 50 mls @ 100 mls/hr 03/08/18 10:00 Pepcid 20 Mg Premixed Ivpb - IVPB DAILY GARRETT Norepinephrine Bitartrate 8, 500 mls @ 18.75 mls/hr 03/07/18 23:15 03/08/18 01:13 000 mcg/ Dextrose IV Not Given TITR GARRETT Protocol 5 MCG/MIN Dextrose/Sodium Chloride 1,000 mls @ 75 mls/hr 03/07/18 23:30 03/08/18 01:16 D5-1/2ns - IV 75 mls/hr ASDIR GARRETT Administration Midazolam HCl 100 mg/ Sodium 100 mls @ 1 mls/hr 03/08/18 07:00 03/08/18 08:00 Chloride IVPB 4 mg/hr TITR GARRETT 4 mls/hr Protocol Titration 1 MG/HR Magnesium Sulfate/Dextrose 1 gm in 100 mls @ 100 mls/hr 03/08/18 09:00 Magnesium 1gm/D5w - IVPB 03/08/18 09:59 ONCE ONE Midazolam HCl 2 mg 03/07/18 22:57 03/07/18 23:15 Versed - IVPUSH 2 mg Q2H PRN Administration AGITATION Mupirocin 1 applic 03/07/18 22:00 03/07/18 23:13 Bactroban Ointment (For Decolonization) - NS 03/12/18 21:59 1 applic BID GARRETT Administration Oseltamivir Phosphate 75 mg 03/08/18 10:00 Tamiflu - NGT 03/13/18 09:59 BID GARRETT Pneumococcal 13-Valent Conj Vacc 0.5 ml 03/08/18 10:00 Prevnar 13 Syringe - IM 03/08/18 10:01 .ONCE ONE Valproic Acid 750 mg 03/07/18 22:00 03/07/18 23:13 Depakene - PO 750 mg BID GARRETT Administration ASSESSMENT/PLAN:
--- NOTE | 2018-03-08 09:37 | EKG ---
Test Reason : Blood Pressure : / mmHG Vent. Rate : 083 BPM Atrial Rate : 083 BPM P-R Int : 172 ms QRS Dur : 086 ms QT Int : 374 ms P-R-T Axes : 054 -32 047 degrees QTc Int : 439 ms SINUS RHYTHM WITH PREMATURE ATRIAL COMPLEXES LEFT AXIS DEVIATION NONSPECIFIC ST ABNORMALITY ABNORMAL ECG Confirmed by AIDEN LARSON MD ([id number]) on 03/08/2018 9:37:20 AM Referred By: Confirmed By:AIDEN LARSON MD
--- NOTE | 2018-03-08 09:42 | EKG ---
Test Reason : Blood Pressure : / mmHG Vent. Rate : 137 BPM Atrial Rate : 127 BPM P-R Int : 000 ms QRS Dur : 118 ms QT Int : 328 ms P-R-T Axes : 000 103 -47 degrees QTc Int : 495 ms Proabably atrial fibrillation with rapid ventricular response with aberrant conduction CANNOT RULE OUT SEPTAL INFARCT , AGE UNDETERMINED MARKED ST ABNORMALITY, POSSIBLE INFERIOR SUBENDOCARDIAL INJURY MARKED ST ABNORMALITY, POSSIBLE ANTERIOR SUBENDOCARDIAL INJURY ABNORMAL ECG NO PREVIOUS ECGS AVAILABLE Confirmed by AIDEN LARSON MD ([id number]) on 03/08/2018 9:41:29 AM Referred By: Confirmed By:AIDEN LARSON MD
[2018-03-08] MEDS ORDERED: ENOXAPARIN NA (PORCINE) 40 MG/0.4 ML DISP.SYRIN SQ SCH (10:00)
[2018-03-08] MEDS ORDERED: ARIPiprazole 10 MG TABLET PO SCH (10:00)
[2018-03-08] MEDS ORDERED: PNEUMOC 13-VAL CONJ-DIP CRM/PF 0.5 ML DISP.SYRIN IM ONE (10:00)
--- NOTE | 2018-03-08 10:15 | PN ---
Progress Note (short form) - Note Progress Note: Pt seen/ examined in icu. chart reviewed sedated on vent. EKG--reviewed--- showed atrial fibrillation On monitor--- in sinus Vital Signs Temp 98.4 F 03/08/18 04:00 Pulse 56 L 03/08/18 08:30 Resp 16 03/08/18 08:34 BP 93/56 03/08/18 08:30 Pulse Ox 100 03/08/18 08:00 Intake & Output 03/07/18 03/07/18 03/08/18 11:59 23:59 11:59 Intake Total 2500 500 Output Total 300 600 Balance 2200 -100 Weight 154 lb 5 oz 154 lb 5 oz Intake: IV 2500 450 D5-1/2Ns - 1,000 ml @ 75 450 mls/hr IV ASDIR GARRETT Rx#: [id number] Normal Saline - 1,000 ml 2000 @ 1000 mls/hr IV ASDIR STA Rx#:[id number] Normal Saline - 500 ml @ 500 500 mls/hr IV ASDIR STA Rx#:[id number] IVPB 50 Output: Urine 300 600 [place] 300 600 Other: Voiding Method Indwelling Catheter Bowel Movement No Height 6 ft Body Mass Index (BMI) 20.9 Weight Measurement Method [facility] Bed[facility] Measurement Method Estimated by Staff Active Medications Acetaminophen (Tylenol -) 650 mg PO Q4H PRN PRN Reason: FEVER Albuterol Sulfate (Ventolin 0.083% Nebulizer Soln -) 1 amp NEB Q4H PRN PRN Reason: SHORT OF BREATH/WHEEZING Aripiprazole (Abilify) 5 mg PO DAILY [facility] Bupropion HCl (Wellbutrin Xl -) 150 mg PO DAILY [facility] Chlorhexidine Gluconate (Hibiclens For Decolonization -) 1 applic TP HS GARRETT Last Admin: 03/07/18 23:13 Dose: 1 applic Chlorhexidine Gluconate (Peridex -) 15 ml MM BID GARRETT Last Admin: 03/07/18 23:14 Dose: 15 ml Enoxaparin Sodium (Lovenox -) 70 mg SQ Q12H GARRETT Fentanyl (Sublimaze Injection -) 50 mcg IVPUSH Q1H PRN PRN Reason: PAIN Stop: 03/08/18 20:59 Last Admin: 03/08/18 06:14 Dose: 50 mcg Folic Acid (Folic Acid -) 1 mg PO DAILY G[facility]RETT Gabapentin (Neurontin -) 400 mg PO TID GARRETT Last Admin: 03/08/18 06:14 Dose: 400 mg Sodium Chloride (Normal Saline -) 1,000 mls @ 83 mls/hr IV ASDIR GARRETT Last Admin: 03/07/18 19:38 Dose: Not Given Piperacillin Sod/Tazobactam (Sod 2.25 gm/ Dextrose) 50 mls @ 100 mls/hr IVPB Q8H-IV GARRETT PRN Reason: Protocol Last Admin: 03/08/18 01:21 Dose: Not Given Norepinephrine Bitartrate 8, (000 mcg/ Dextrose) 500 mls @ 18.75 mls/hr IV TITR GARRETT; 5 MCG/MIN PRN Reason: Protocol Famotidine/Sodium Chloride (Pepcid 20 Mg Premixed Ivpb -) 20 mg in 50 mls @ 100 mls/hr IVPB DAILY G[facility]RETT Norepinephrine Bitartrate 8, (000 mcg/ Dextrose) 500 mls @ 18.75 mls/hr IV TITR GARRETT; 5 MCG/MIN PRN Reason: Protocol Last Admin: 03/08/18 01:13 Dose: Not Given Dextrose/Sodium Chloride (D5-1/2ns -) 1,000 mls @ 75 mls/hr IV ASDIR GARRETT Last Admin: 03/08/18 01:16 Dose: 75 mls/hr Midazolam HCl 100 mg/ Sodium (Chloride) 100 mls @ 1 mls/hr IVPB TITR GARRETT; 1 MG/ HR PRN Reason: Protocol Last Titration: 03/08/18 08:00 Dose: 4 mg/hr, 4 mls/hr Midazolam HCl (Versed -) 2 mg IVPUSH Q2H PRN PRN Reason: AGITATION Last Admin: 03/07/18 23:15 Dose: 2 mg Mupirocin (Bactroban Ointment (For Decolonization) -) 1 applic NS BID [facility] Stop: 03/12/18 21:59 Last Admin: 03/07/18 23:13 Dose: 1 applic Oseltamivir Phosphate (Tamiflu -) 75 mg NGT BID [facility] Stop: 03/13/18 09:59 Valproic Acid (Depakene -) 750 mg PO BID GARRETT Last Admin: 03/07/18 23:13 Dose: 750 mg CBC, BMP 03/08/18 06:10 03/08/18 06:10 Microbiology 03/07/18 22:00 Influenza Types A,B Antigen (ERIC) - Final Nasopharyngeal Swab - Final cxr - reviewed ekg- afib. physical exam Sedated on vent. lungs--- diminished at bases CVS--- S1-S2 regular Abdomen--soft Extremities --no edema neuro--- sedated assessment and plan vent support Antibiotics Continue present care We will change Lovenox to full dose- for now-- due to abnormal EKG--atrial fibrillation Sinus on monitor Echocardiogram Cardiology to follow--discussed with Dr. Hernandez--will follow Discussed with nursing staff also. condition guarded. Will follow.
[2018-03-08] MEDS ORDERED: PT OWN MED DRAWER 7, Y5N ONE ×3 (10:21→21:45)
[2018-03-08] MEDS: FAMOTIDINE 20 MG/50 ML IVPB 20 MG/50 ML MG IVPB SCH (10:29)
[2018-03-08] MEDS: ARIPiprazole 5 MG TABLET (FP) PO SCH (10:32)
[2018-03-08] MEDS: VALPROIC ACID 250 MG CAPSULE PO SCH (10:33)
[2018-03-08] MEDS: CHLORHEXIDINE GLUCONATE 0.12% 15ML CUP MM SCH ×2 (10:34→21:49)
[2018-03-08] MEDS: FOLIC ACID 1 MG TABLET (FP) PO SCH (10:34)
[2018-03-08] MEDS: OSELTAMIVIR PHOSPHATE 75 MG CAPSULE NGT SCH ×2 (10:34→21:49)
[2018-03-08] MEDS: ENOXAPARIN NA (PORCINE) 80 MG/0.8 ML DISP.SYRIN SQ SCH ×2 (10:35→21:49)
--- NOTE | 2018-03-08 10:57 | CON.CARD ---
Consult Consult Specialty:: Cardiology Referred by:: Danae Ralph MD Reason for Consultation:: Anticoagulation recommendations - History of Present Illness Chief Complaint: Altered mental status, fevers History of Present Illness: Pt seen and examined in ICU CC: AMS, hypotension, fever Hx obtained from medical record, staff, as pt obtunded Mr Schulz is a 73 year old man with pmhx significant for 30 year hx of schizophrenia/bipolar disorder, hip replacement in 09/2017, TURP 3 years, CHF , DVT(of LLE), hypertension. Pt has been [place] resident and with slowing improving mobility since hip surgery. Pt had fever, cough, AMS, and hypotension prompting 911 activation. EMS found pt with fever 102, altered mental status. Per ED pt was sent from [facility] for AMS, hypotension, and fever. tmax 102 in EMS. In ED pt was altered, related feeling poorly but without clear localization of symptoms.VS BP 73/65, RR 25 HR 60. CXR with multifocal pna. Infante with kamaljit pyuria (UA pending) . WBC 7.2, Cr 1.6, trop 0.13, LA 1.5. Pt given IVF, started on HCAP coverage Vanco, Piptaz, sedated and intubated, TLC on left. Initial EKG read as possible afib, but baseline poor, repeat EKG shows SR. - History Source History Provided By: Medical Record Limitations to Obtaining History: Clinical Condition - Past Medical History Cardio/Vascular: Yes: CHF, HTN Psych: Yes: Bipolar, Schizophrenia - Past Surgical History Past Surgical History: Yes: TURP - Alcohol/Substance Use Hx Alcohol Use: No - Smoking History Smoking history: Unknown if ever smoked Have you smoked in the past 12 months: No - Social History ADL: Independent Home Medications - Allergies Allergies/Adverse Reactions: Allergies Allergy/AdvReac Type Severity Reaction Status Date / Time ciprofloxacin [From Cipro] Allergy Verified 03/07/18 18:39 - Home Medications Home Medications: Ambulatory Orders Aripiprazole [Abilify] 5 mg PO DAILY 03/07/18 Bisacodyl [Dulcolax] 10 mg RC Q3D 03/07/18 Bupropion HCl [Wellbutrin Sr] 150 mg PO DAILY 03/07/18 Enoxaparin [Lovenox -] 40 mg SQ DAILY 03/07/18 Folic Acid 1 mg PO DAILY 03/07/18 Gabapentin 400 mg PO TID 03/07/18 Multivitamins [Tab-A-Vit -] 1 tab PO DAILY 03/07/18 Pantoprazole Sodium 40 mg PO DAILY 03/07/18 Piperacillin Sodium/Tazobactam [Piperacil-Tazobact 3.375 gm Vl] 3.375 gm IV TID 03/07/18 Polyethylene Glycol 3350 [Miralax (For Daily Use) -] 17 gm PO DAILY 03/07/18 Valproic Acid [Depakene] 750 mg PO BID 03/07/18 Review of Systems Unable to obtain ROS, reason: Sedated and intubated Vital Signs: Vital Signs Temperature 99.9 F H 03/08/18 10:00 Pulse Rate 56 L 03/08/18 10:00 Respiratory Rate 12 03/08/18 10:00 Blood Pressure 100/54 03/08/18 10:00 O2 Sat by Pulse Oximetry (%) 100 03/08/18 09:00 Constitutional: Yes: Thin Respiratory: Yes: Mechanically Ventilated, Rhonchi Gastrointestinal: Yes: Soft, Hypoactive Bowel Sounds Cardiovascular: Yes: Regular Rate and Rhythm JVD: No Carotid Bruit: No Heart Sounds: Yes: S1, S2 Edema: No - Other Data Labs, Other Data: CBC, BMP 03/08/18 06:10 03/08/18 06:10 INR, PTT INR 1.11 (0.82-1.09) 03/07/18 16:28 Troponin, BNP 03/07/18 03/07/18 16:28 22:00 Troponin I 0.13 H 0.12 H Troponin, BNP 03/07/18 03/07/18 16:28 22:00 Troponin I 0.13 H 0.12 H SR w/ PAC LAD Imaging - Results Chest X-ray: Report Reviewed (Bibasilar changes) Problem List - Problems (1) Sepsis Code(s): A41.9 - SEPSIS, UNSPECIFIED ORGANISM Qualifiers: Sepsis type: sepsis due to unspecified organism Qualified Code(s): A41.9 - Sepsis, unspecified organism (2) MARVIN (acute kidney injury) Code(s): N17.9 - ACUTE KIDNEY FAILURE, UNSPECIFIED (3) Pneumonia Code(s): J18.9 - PNEUMONIA, UNSPECIFIED ORGANISM Qualifiers: Laterality: bilateral Lung location: lower lobe of lung (4) Schizo affective schizophrenia Code(s): F25.0 - SCHIZOAFFECTIVE DISORDER, BIPOLAR TYPE (5) Anemia Code(s): D64.9 - ANEMIA, UNSPECIFIED Qualifiers: Anemia type: unspecified type Qualified Code(s): D64.9 - Anemia, unspecified (6) Demand ischemia Code(s): I24.8 - OTHER FORMS OF ACUTE ISCHEMIC HEART DISEASE Assessment/Plan 1. Acute hypoxic respiratory failure 2. Sepsis with multilobar PNA and sepsis source 3. Schiozoaffective disorder 4. MARVIN improving 5. Demand ischemia P:1. Ventilator management, wean FIO2 as tolerated 2. Volume resuscitation, lactate and trops plateauing 3. Abx coverage per C&S 4. F/u echo to assess ventricular and valve fxn 5. Thank you for consultative opportunity
[2018-03-08] MEDS: MUPIROCIN 2% TOPICAL OINTMENT FOR DECOLONIZATION NS SCH ×2 (12:33→21:49)
--- NOTE | 2018-03-08 13:05 | PN ---
Teaching Attending Note Name of Resident: Javed Morse ATTENDING PHYSICIAN STATEMENT I saw and evaluated the patient. I reviewed the resident's note and discussed the case with the resident. I agree with the resident's findings and plan as documented. SUBJECTIVE: Patient seen and examined in the ICU. Intubated and sedated. AC Mode of vent. No pressors at present. (+) Influenza B Intake & Output 03/05/18 03/06/18 03/07/18 03/08/18 23:59 23:59 23:59 23:59 Intake Total 2500 700 Output Total 300 600 Balance 2200 100 Weight 154 lb 5 oz 154 lb 5 oz Last Vital Signs Temp Pulse Resp BP Pulse Ox 99.9 F H 54 L 16 98/67 100 03/08/18 10:00 03/08/18 12:00 03/08/18 12:00 03/08/18 12:00 03/08/18 12:58 Active Medications Acetaminophen (Tylenol -) 650 mg PO Q4H PRN PRN Reason: FEVER Albuterol Sulfate (Ventolin 0.083% Nebulizer Soln -) 1 amp NEB Q4H PRN PRN Reason: SHORT OF BREATH/WHEEZING Aripiprazole (Abilify) 5 mg PO DAILY [facility] Last Admin: 03/08/18 10:32 Dose: 5 mg Bupropion HCl (Wellbutrin Xl -) 150 mg PO DAILY [facility] Last Admin: 03/08/18 10:35 Dose: 150 mg Chlorhexidine Gluconate (Hibiclens For Decolonization -) 1 applic TP HS [facility] Last Admin: 03/07/18 23:13 Dose: 1 applic Chlorhexidine Gluconate (Peridex -) 15 ml MM BID [facility] Last Admin: 03/08/18 10:34 Dose: 15 ml Enoxaparin Sodium (Lovenox -) 70 mg SQ BID [facility] Last Admin: 03/08/18 10:35 Dose: 70 mg Fentanyl (Sublimaze Injection -) 50 mcg IVPUSH Q1H PRN PRN Reason: PAIN Stop: 03/08/18 20:59 Last Admin: 03/08/18 06:14 Dose: 50 mcg Folic Acid (Folic Acid -) 1 mg PO DAILY [facility] Last Admin: 03/08/18 10:34 Dose: 1 mg Gabapentin (Neurontin -) 400 mg PO TID [facility] Last Admin: 03/08/18 06:14 Dose: 400 mg Sodium Chloride (Normal Saline -) 1,000 mls @ 83 mls/hr IV ASDIR [facility] Last Admin: 03/07/18 19:38 Dose: Not Given Piperacillin Sod/Tazobactam (Sod 2.25 gm/ Dextrose) 50 mls @ 100 mls/hr IVPB Q8H-IV [facility] PRN Reason: Protocol Last Admin: 03/08/18 10:28 Dose: 100 mls/hr Norepinephrine Bitartrate 8, (000 mcg/ Dextrose) 500 mls @ 18.75 mls/hr IV TITR [facility]; 5 MCG/MIN PRN Reason: Protocol Famotidine/Sodium Chloride (Pepcid 20 Mg Premixed Ivpb -) 20 mg in 50 mls @ 100 mls/hr IVPB DAILY [facility] Last Admin: 03/08/18 10:29 Dose: 100 mls/hr Norepinephrine Bitartrate 8, (000 mcg/ Dextrose) 500 mls @ 18.75 mls/hr IV TITR [facility]; 5 MCG/MIN PRN Reason: Protocol Last Admin: 03/08/18 01:13 Dose: Not Given Dextrose/Sodium Chloride (D5-1/2ns -) 1,000 mls @ 75 mls/hr IV ASDIR [facility] Last Admin: 03/08/18 01:16 Dose: 75 mls/hr Midazolam HCl 100 mg/ Sodium (Chloride) 100 mls @ 1 mls/hr IVPB TITR [facility]; 1 MG/ HR PRN Reason: Protocol Last Titration: 03/08/18 08:00 Dose: 4 mg/hr, 4 mls/hr Midazolam HCl (Versed -) 2 mg IVPUSH Q2H PRN PRN Reason: AGITATION Last Admin: 03/07/18 23:15 Dose: 2 mg Mupirocin (Bactroban Ointment (For Decolonization) -) 1 applic NS BID [facility] Stop: 03/12/18 21:59 Last Admin: 03/08/18 12:33 Dose: 1 applic Oseltamivir Phosphate (Tamiflu -) 75 mg NGT BID [facility] Stop: 03/13/18 09:59 Last Admin: 03/08/18 10:34 Dose: 75 mg Valproate Sodium (Depakene -) 750 mg PO BID [facility] PE: Gen: Intubated and sedated HEENT: PERRL, (-) JVP Pulm: coarse bilaterally CV: RRR, (-) murmur ABD; soft, NT, ND, no Hepatosplenomegaly ext: cool, weak peripheral pulses Neuro: Sedated Laboratory Results - last 24 hr 03/07/18 03/07/18 03/07/18 16:28 16:28 16:28 WBC 7.2 RBC 3.90 L Hgb 13.2 Hct 38.4 MCV 98.5 H MCH 33.9 H MCHC 34.4 RDW 14.0 Plt Count 183 MPV 7.6 Neutrophils % 78.2 Lymphocytes % 13.1 Monocytes % 8.4 Eosinophils % 0.0 Basophils % 0.3 PT with INR 12.50 INR 1.11 PTT (Actin FS) 54.1 H Puncture Site ABG pH ABG pCO2 at Pt Temp ABG pO2 at Pt Temp ABG HCO3 ABG O2 Sat (Measured) ABG O2 Content ABG Base Excess Jordon Test Oxygen Flow Rate Sodium 141 Potassium 4.3 Chloride 106 Carbon Dioxide 22 Anion Gap 13 BUN 41 H Creatinine 1.6 H Creat Clearance w eGFR 42.58 Random Glucose 87 Lactic Acid Calcium 8.2 L Phosphorus Magnesium Total Bilirubin 0.4 AST 31 ALT 14 Alkaline Phosphatase 86 Creatine Kinase Creatine Kinase Index CK-MB (CK-2) Troponin I Total Protein 7.5 Albumin 2.9 L Urine Color Urine Appearance Urine pH Ur Specific Crocker Urine Protein Urine Glucose (UA) Urine Ketones Urine Blood Urine Nitrite Urine Bilirubin Urine Urobilinogen Ur Leukocyte Esterase Urine WBC (Auto) Urine RBC (Auto) 03/07/18 03/07/18 03/07/18 16:28 16:28 19:01 WBC RBC Hgb Hct MCV MCH MCHC RDW Plt Count MPV Neutrophils % Lymphocytes % Monocytes % Eosinophils % Basophils % PT with INR INR PTT (Actin FS) Puncture Site ABG pH ABG pCO2 at Pt Temp ABG pO2 at Pt Temp ABG HCO3 ABG O2 Sat (Measured) ABG O2 Content ABG Base Excess Jordon Test Oxygen Flow Rate Sodium Potassium Chloride Carbon Dioxide Anion Gap BUN Creatinine Creat Clearance w eGFR Random Glucose Lactic Acid 1.5 1.8 Calcium Phosphorus Magnesium Total Bilirubin AST ALT Alkaline Phosphatase Creatine Kinase Creatine Kinase Index CK-MB (CK-2) Troponin I 0.13 H Total Protein Albumin Urine Color Urine Appearance Urine pH Ur Specific Crocker Urine Protein Urine Glucose (UA) Urine Ketones Urine Blood Urine Nitrite Urine Bilirubin Urine Urobilinogen Ur Leukocyte Esterase Urine WBC (Auto) Urine RBC (Auto) 03/07/18 03/07/18 03/07/18 20:05 20:30 22:00 WBC RBC Hgb Hct MCV MCH MCHC RDW Plt Count MPV Neutrophils % Lymphocytes % Monocytes % Eosinophils % Basophils % PT with INR INR PTT (Actin FS) Puncture Site Right radial ABG pH 7.35 ABG pCO2 at Pt Temp 38.6 ABG pO2 at Pt Temp 95.1 ABG HCO3 20.8 L ABG O2 Sat (Measured) 97.2 ABG O2 Content 13.2 L ABG Base Excess -3.9 L Jordon Test Positive Oxygen Flow Rate 100 Sodium Potassium Chloride Carbon Dioxide Anion Gap BUN Creatinine Creat Clearance w eGFR Random Glucose Lactic Acid Calcium Phosphorus Magnesium Total Bilirubin AST ALT Alkaline Phosphatase Creatine Kinase 534 H Creatine Kinase Index 0.2 CK-MB (CK-2) 1.477 Troponin I 0.12 H Total Protein Albumin Urine Color Mikaela Urine Appearance Turbid Urine pH 5.0 Ur Specific Crocker 1.020 Urine Protein 2+ H Urine Glucose (UA) Negative Urine Ketones Trace H Urine Blood 1+ H Urine Nitrite Positive Urine Bilirubin Negative Urine Urobilinogen Negative Ur Leukocyte Esterase 2+ H Urine WBC (Auto) 2357 Urine RBC (Auto) 67 03/08/18 03/08/18 06:10 06:10 WBC 5.9 RBC 3.08 L D Hgb 10.6 L D Hct 30.4 L D MCV 98.7 H MCH 34.3 H MCHC 34.8 RDW 14.0 Plt Count 136 D MPV 7.7 Neutrophils % 77.6 Lymphocytes % 12.8 Monocytes % 9.4 Eosinophils % 0.0 Basophils % 0.2 PT with INR INR PTT (Actin FS) Puncture Site ABG pH ABG pCO2 at Pt Temp ABG pO2 at Pt Temp ABG HCO3 ABG O2 Sat (Measured) ABG O2 Content ABG Base Excess Jordon Test Oxygen Flow Rate Sodium 144 Potassium 3.8 Chloride 112 H Carbon Dioxide 24 Anion Gap 8 BUN 22 H D Creatinine 0.6 L D Creat Clearance w eGFR > 60 Random Glucose 92 Lactic Acid Calcium 7.2 L Phosphorus 2.7 Magnesium 1.7 L Total Bilirubin 0.3 D AST 29 ALT 10 L D Alkaline Phosphatase 55 D Creatine Kinase Creatine Kinase Index CK-MB (CK-2) Troponin I Total Protein 5.3 L D Albumin 2.0 L D Urine Color Urine Appearance Urine pH Ur Specific Crocker Urine Protein Urine Glucose (UA) Urine Ketones Urine Blood Urine Nitrite Urine Bilirubin Urine Urobilinogen Ur Leukocyte Esterase Urine WBC (Auto) Urine RBC (Auto) Problem List - Problems (1) Sepsis Code(s): A41.9 - SEPSIS, UNSPECIFIED ORGANISM Qualifiers: Sepsis type: sepsis due to unspecified organism Qualified Code(s): A41.9 - Sepsis, unspecified organism (2) MARVIN (acute kidney injury) Code(s): N17.9 - ACUTE KIDNEY FAILURE, UNSPECIFIED (3) Pneumonia Code(s): J18.9 - PNEUMONIA, UNSPECIFIED ORGANISM Qualifiers: Laterality: bilateral Lung location: lower lobe of lung (4) Schizo affective schizophrenia Code(s): F25.0 - SCHIZOAFFECTIVE DISORDER, BIPOLAR TYPE (5) Anemia Code(s): D64.9 - ANEMIA, UNSPECIFIED Qualifiers: Anemia type: unspecified type Qualified Code(s): D64.9 - Anemia, unspecified (6) Demand ischemia Code(s): I24.8 - OTHER FORMS OF ACUTE ISCHEMIC HEART DISEASE IMP: Acute Respiratory Failure Multilobar PNA Influenza B (+) Sepsis UTI AMS Schizoaffective D/O MARVIN Demand ischemia PLAN: ABX per ID Follow cultures IVF Lovenox BID Enteral feeds SBTs as mental status improves BD TX ICU monitoring Dr Conley Critical care time spent in reviewing chart, evaluating patient and formulating plan - 36 minutes.
[2018-03-08] MEDS: VALPROATE SODIUM 250 MG/5 ML UNIT DOSE CUP PO SCH ×2 (13:09→21:48)
--- NOTE | 2018-03-08 15:26 | CON.ID ---
Consult Consult Specialty:: infectious diseases Reason for Consultation:: pneumonia,resp failure - History of Present Illness History of Present Illness: patient is intubated and sedated unable to obtain history from the patient which is obtained from the cart and the nursing staff Jazz is a 73 year old man with pmhx significant for 30 year hx of schizophrenia/bipolar disorder, hip replacement in 09/2017, TURP 3 years, CHF , DVT(of LLE), hypertension. Pt has been [place] resident and with slowing improving mobility since hip surgery. Pt had fever, cough, AMS, and hypotension and NH prompting 911 activation. EMS found pt with fever 102, depressed mental status. Per ED pt was sent from [facility] for AMS, hypotension, and fever. tmax 102 in EMS. In ED pt was altered, related feeling poorly but without clear localization of symptoms.VS BP 73/65, RR 25 HR 60. CXR with multifocal pna. Infante with kamaljit pyuria (UA pending) . WBC 7.2, Cr 1.6, trop 0.13, LA 1.5. Pt given IVF, started on HCAP coverage Gil Haile. Transferred to ICU for further care. In ICU pt BP 70/54, RR 13, mental status poor with pooling secretions in posterior airway. patient was intubated and sedated patient currently having profuse thin secretions no pressors at the moment.patient was worked up and found to be influenza positive - History Source History Provided By: Medical Record Limitations to Obtaining History: Clinical Condition - Past Medical History Cardio/Vascular: Yes: CHF, HTN Psych: Yes: Bipolar, Schizophrenia - Past Surgical History Past Surgical History: Yes: TURP - Alcohol/Substance Use Hx Alcohol Use: No - Smoking History Smoking history: Unknown if ever smoked Have you smoked in the past 12 months: No - Social History ADL: Independent Home Medications - Allergies Allergies/Adverse Reactions: Allergies Allergy/AdvReac Type Severity Reaction Status Date / Time ciprofloxacin [From Cipro] Allergy Verified 03/07/18 18:39 - Home Medications Home Medications: Ambulatory Orders Aripiprazole [Abilify] 5 mg PO DAILY 03/07/18 Bisacodyl [Dulcolax] 10 mg RC Q3D 03/07/18 Bupropion HCl [Wellbutrin Sr] 150 mg PO DAILY 03/07/18 Enoxaparin [Lovenox -] 40 mg SQ DAILY 03/07/18 Folic Acid 1 mg PO DAILY 03/07/18 Gabapentin 400 mg PO TID 03/07/18 Multivitamins [Tab-A-Vit -] 1 tab PO DAILY 03/07/18 Pantoprazole Sodium 40 mg PO DAILY 03/07/18 Piperacillin Sodium/Tazobactam [Piperacil-Tazobact 3.375 gm Vl] 3.375 gm IV TID 03/07/18 Polyethylene Glycol 3350 [Miralax (For Daily Use) -] 17 gm PO DAILY 03/07/18 Valproic Acid [Depakene] 750 mg PO BID 03/07/18 Review of Systems Unable to obtain ROS, reason: unable to obtain Physical Exam Vital Signs: Vital Signs Temperature 99.9 F H 03/08/18 10:00 Pulse Rate 54 L 03/08/18 12:00 Respiratory Rate 03/08/18 14:15 Blood Pressure 98/67 03/08/18 12:00 O2 Sat by Pulse Oximetry (%) 100 03/08/18 12:58 Constitutional: Yes: Other Eyes: Yes: Conjunctiva Clear Neck: Yes: Supple, Trachea Midline Cardiovascular: Yes: Regular Rate and Rhythm Respiratory: Yes: Intubated, Mechanically Ventilated Gastrointestinal: Yes: Normal Bowel Sounds, Soft Musculoskeletal: Yes: WNL Extremities: Yes: WNL Labs: CBC, BMP 03/08/18 06:10 03/08/18 06:10 Imaging - Results Chest X-ray: Report Reviewed, Image Reviewed Assessment/Plan Problem List - Problems (1) Sepsis Code(s): A41.9 - SEPSIS, UNSPECIFIED ORGANISM Qualifiers: Sepsis type: sepsis due to unspecified organism Qualified Code(s): A41.9 - Sepsis, unspecified organism (2) MARVIN (acute kidney injury) Code(s): N17.9 - ACUTE KIDNEY FAILURE, UNSPECIFIED (3) Pneumonia Code(s): J18.9 - PNEUMONIA, UNSPECIFIED ORGANISM Qualifiers: Laterality: bilateral Lung location: lower lobe of lung (4) Schizo affective schizophrenia Code(s): F25.0 - SCHIZOAFFECTIVE DISORDER, BIPOLAR TYPE (5) Anemia Code(s): D64.9 - ANEMIA, UNSPECIFIED Qualifiers: Anemia type: unspecified type Qualified Code(s): D64.9 - Anemia, unspecified (6) Demand ischemia Code(s): I24.8 - OTHER FORMS OF ACUTE ISCHEMIC HEART DISEASE IMP: Acute Respiratory Failure Multilobar PNA Influenza B (+) Sepsis UTI AMS Schizoaffective D/O MARVIN patient with influena and pneumonia and uti contributing to his condition patient current on zosyn wbc normal with all his cx report pending plan continue current mgmt contiue monitoring closely avoid aspiration suction await for all cx reports resp suport rest as per icu cc 45 min
[2018-03-08] MEDS: SODIUM CHLORIDE 1,000 ML IV SCH (18:44)
[2018-03-08] MEDS: CHLORHEXIDINE GLUCONATE 4% CLEANSER FOR DECOLONIZATION TP SCH (21:49)
[2018-03-09] MEDS: MIDAZOLAM 100 MG in SODIUM CHLORIDE 100 ML IVPB SCH ×2 (02:00→15:00)
[2018-03-09] MEDS ORDERED: PIPERACILLIN/TAZOBACTAM 2.25 GM VIAL IVPB ONE ×3 (02:34→18:26)
[2018-03-09] MEDS ORDERED: DEXTROSE 5%-WATER - 50 ML IVPB ONE ×3 (02:34→18:26)
[2018-03-09] MEDS: PIPERACILLIN/TAZOB 2.25 GM 2.25 GM in DEXTROSE 5%-WATER - 50 ML IVPB SCH ×3 (02:47→19:54)
[2018-03-09] MEDS: GABAPENTIN 400 MG CAPSULE (FP) PO SCH ×3 (06:31→22:04)
[2018-03-09 06:45] LABS: BASO % 0.1 % (0-2.0); EOS % 0.2 % (0-4.5); HEMATOCRIT 31.8 % (35.4-49); HEMOGLOBIN 10.9 GM/dL (11.7-16.9); LYMPH % 20.2 % (8-40); MCH 33.9 pg (25.7-33.7); MCHC 34.4 g/dl (32.0-35.9); MEAN CELL VOLUME 98.5 fl (80-96); MONO % 12.1 % (3.8-10.2); NEUT % 67.4 % (42.8-82.8); PLATELET COUNT 128 K/MM3 (134-434); RBC 3.23 M/mm3 (4.00-5.60); RDW 13.4 % (11.9-15.9); WHITE BLOOD COUNT 5.4 K/mm3 (4.0-10.0)
[2018-03-09 07:09] LABS: ALBUMIN 1.9 g/dl (3.4-5.0); ALK PHOS 53 U/L (45-117); ANION GAP 7 (8-16); BILIRUBIN,TOTAL 0.4 mg/dL (0.2-1.0); BLOOD UREA NITROGEN 11 mg/dL (7-18); CALCIUM 7.6 mg/dL (8.5-10.1); CHLORIDE 108 mmol/L (98-107); CO2 27 mmol/L (21-32); CREATININE 0.5 mg/dL (0.7-1.3); GLUCOSE,RANDOM 72 mg/dL (74-106); MAGNESIUM 1.6 mg/dL (1.8-2.4); PHOSPHOROUS 1.9 mg/dL (2.5-4.9); POTASSIUM 3.7 mmol/L (3.5-5.1); SGOT/AST 23 U/L (15-37); SGPT/ALT 9 U/L (12-78); SODIUM 142 mmol/L (136-145)
[2018-03-09] MEDS: NOREPINEPHRINE BITARTRATE 8,000 MCG in DEXTROSE 5%-WATER - 492 ML IV SCH ×2 (07:19→23:00)
[2018-03-09] MEDS ORDERED: PT OWN MED DRAWER 7, Y5N ONE ×2 (08:27→21:26)
[2018-03-09] MEDS: ARIPiprazole 5 MG TABLET (FP) PO SCH (09:43)
[2018-03-09] MEDS: MUPIROCIN 2% TOPICAL OINTMENT FOR DECOLONIZATION NS SCH ×2 (09:43→22:05)
[2018-03-09] MEDS: VALPROATE SODIUM 250 MG/5 ML UNIT DOSE CUP PO SCH ×2 (09:44→22:09)
[2018-03-09] MEDS: OSELTAMIVIR PHOSPHATE 75 MG CAPSULE NGT SCH ×2 (09:44→22:09)
[2018-03-09] MEDS: CHLORHEXIDINE GLUCONATE 0.12% 15ML CUP MM SCH ×2 (09:45→22:09)
[2018-03-09] MEDS: FAMOTIDINE 20 MG/50 ML IVPB 20 MG/50 ML MG IVPB SCH (09:46)
[2018-03-09] MEDS: ENOXAPARIN NA (PORCINE) 80 MG/0.8 ML DISP.SYRIN SQ SCH (09:47)
[2018-03-09] MEDS: FOLIC ACID 1 MG TABLET (FP) PO SCH (09:47)
--- NOTE | 2018-03-09 10:46 | PN ---
Progress Note, Physician Chief Complaint: sedated on vent events noted intubated - Current Medication List Current Medications: Active Medications Acetaminophen (Tylenol -) 650 mg PO Q4H PRN PRN Reason: FEVER Albuterol Sulfate (Ventolin 0.083% Nebulizer Soln -) 1 amp NEB Q4H PRN PRN Reason: SHORT OF BREATH/WHEEZING Aripiprazole (Abilify) 5 mg PO DAILY [facility] Last Admin: 03/09/18 09:43 Dose: 5 mg Bupropion HCl (Wellbutrin Xl -) 150 mg PO DAILY [facility] Last Admin: 03/08/18 10:35 Dose: 150 mg Chlorhexidine Gluconate (Hibiclens For Decolonization -) 1 applic TP HS [facility] Last Admin: 03/08/18 21:49 Dose: 1 applic Chlorhexidine Gluconate (Peridex -) 15 ml MM BID [facility] Last Admin: 03/09/18 09:45 Dose: 15 ml Enoxaparin Sodium (Lovenox -) 70 mg SQ BID [facility] Last Admin: 03/09/18 09:47 Dose: 70 mg Folic Acid (Folic Acid -) 1 mg PO DAILY [facility] Last Admin: 03/09/18 09:47 Dose: 1 mg Gabapentin (Neurontin -) 400 mg PO TID [facility] Last Admin: 03/09/18 06:31 Dose: 400 mg Sodium Chloride (Normal Saline -) 1,000 mls @ 83 mls/hr IV ASDIR [facility] Last Admin: 03/08/18 18:44 Dose: 83 mls/hr Piperacillin Sod/Tazobactam (Sod 2.25 gm/ Dextrose) 50 mls @ 100 mls/hr IVPB Q8H-IV [facility] PRN Reason: Protocol Last Admin: 03/09/18 09:51 Dose: 100 mls/hr Famotidine/Sodium Chloride (Pepcid 20 Mg Premixed Ivpb -) 20 mg in 50 mls @ 100 mls/hr IVPB DAILY [facility] Last Admin: 03/09/18 09:46 Dose: 100 mls/hr Norepinephrine Bitartrate 8, (000 mcg/ Dextrose) 500 mls @ 18.75 mls/hr IV TITR [facility]; 5 MCG/MIN PRN Reason: Protocol Last Admin: 03/09/18 07:19 Dose: Not Given Dextrose/Sodium Chloride (D5-1/2ns -) 1,000 mls @ 75 mls/hr IV ASDIR [facility] Last Admin: 03/08/18 14:21 Dose: 75 mls/hr Midazolam HCl 100 mg/ Sodium (Chloride) 100 mls @ 1 mls/hr IVPB TITR [facility]; 1 MG/ HR PRN Reason: Protocol Last Admin: 03/09/18 02:00 Dose: 4 mg/hr, 4 mls/hr Midazolam HCl (Versed -) 2 mg IVPUSH Q2H PRN PRN Reason: AGITATION Last Admin: 03/07/18 23:15 Dose: 2 mg Mupirocin (Bactroban Ointment (For Decolonization) -) 1 applic NS BID [facility] Stop: 03/12/18 21:59 Last Admin: 03/09/18 09:43 Dose: 1 applic Oseltamivir Phosphate (Tamiflu -) 75 mg NGT BID [facility] Stop: 03/13/18 09:59 Last Admin: 03/09/18 09:44 Dose: 75 mg Valproate Sodium (Depakene -) 750 mg PO BID [facility] Last Admin: 03/09/18 09:44 Dose: 750 mg - Objective Vital Signs: Vital Signs Temperature 99 F 03/09/18 10:00 Pulse Rate 64 03/09/18 10:00 Respiratory Rate 14 03/09/18 10:00 Blood Pressure 128/86 03/09/18 10:00 O2 Sat by Pulse Oximetry (%) 99 03/09/18 08:50 Constitutional: Yes: No Distress Cardiovascular: Yes: Regular Rate and Rhythm Respiratory: Yes: Mechanically Ventilated Gastrointestinal: Yes: Normal Bowel Sounds, Soft. No: Tenderness Edema: No Labs: CBC, BMP 03/09/18 06:30 03/09/18 06:30 INR, PTT INR 1.11 (0.82-1.09) 03/07/18 16:28 Problem List - Problems (1) MARVIN (acute kidney injury) Code(s): N17.9 - ACUTE KIDNEY FAILURE, UNSPECIFIED (2) Acute respiratory failure with hypoxia Code(s): J96.01 - ACUTE RESPIRATORY FAILURE WITH HYPOXIA (3) Anemia Code(s): D64.9 - ANEMIA, UNSPECIFIED Qualifiers: Anemia type: unspecified type Qualified Code(s): D64.9 - Anemia, unspecified (4) Demand ischemia Code(s): I24.8 - OTHER FORMS OF ACUTE ISCHEMIC HEART DISEASE (5) Influenza B Code(s): J10.1 - FLU DUE TO OTH IDENT INFLUENZA VIRUS W OTH RESP MANIFEST (6) Pneumonia Code(s): J18.9 - PNEUMONIA, UNSPECIFIED ORGANISM Qualifiers: Laterality: bilateral Lung location: lower lobe of lung (7) Schizo affective schizophrenia Code(s): F25.0 - SCHIZOAFFECTIVE DISORDER, BIPOLAR TYPE (8) Sepsis Code(s): A41.9 - SEPSIS, UNSPECIFIED ORGANISM Qualifiers: Sepsis type: sepsis due to unspecified organism Qualified Code(s): A41.9 - Sepsis, unspecified organism Assessment/Plan PLAN Continue with iv antibiotics continue with Tamiflu iv fluids troponins elevated due to sepsis vent management per ICU prognosis guarded Lovenox for DVT prophylaxis
--- NOTE | 2018-03-09 11:30 | PN ---
Progress Note (short form) - Note Progress Note: Pulm/CCM SUBJECTIVE: Patient seen and examined in the ICU. -no pressors -40% fio2 -cxr improved (+) Influenza B gnr Non fermenters in Urine cxl Active Medications Acetaminophen (Tylenol -) 650 mg PO Q4H PRN PRN Reason: FEVER Albuterol Sulfate (Ventolin 0.083% Nebulizer Soln -) 1 amp NEB Q4H PRN PRN Reason: SHORT OF BREATH/WHEEZING Aripiprazole (Abilify) 5 mg PO DAILY [facility] Last Admin: 03/09/18 09:43 Dose: 5 mg Bupropion HCl (Wellbutrin Xl -) 150 mg PO DAILY [facility] Last Admin: 03/08/18 10:35 Dose: 150 mg Chlorhexidine Gluconate (Hibiclens For Decolonization -) 1 applic TP HS [facility] Last Admin: 03/08/18 21:49 Dose: 1 applic Chlorhexidine Gluconate (Peridex -) 15 ml MM BID [facility] Last Admin: 03/09/18 09:45 Dose: 15 ml Enoxaparin Sodium (Lovenox -) 70 mg SQ BID [facility] Last Admin: 03/09/18 09:47 Dose: 70 mg Folic Acid (Folic Acid -) 1 mg PO DAILY [facility] Last Admin: 03/09/18 09:47 Dose: 1 mg Gabapentin (Neurontin -) 400 mg PO TID [facility] Last Admin: 03/09/18 06:31 Dose: 400 mg Sodium Chloride (Normal Saline -) 1,000 mls @ 83 mls/hr IV ASDIR [facility] Last Admin: 03/08/18 18:44 Dose: 83 mls/hr Piperacillin Sod/Tazobactam (Sod 2.25 gm/ Dextrose) 50 mls @ 100 mls/hr IVPB Q8H-IV GARRETT PRN Reason: Protocol Last Admin: 03/09/18 09:51 Dose: 100 mls/hr Famotidine/Sodium Chloride (Pepcid 20 Mg Premixed Ivpb -) 20 mg in 50 mls @ 100 mls/hr IVPB DAILY [facility] Last Admin: 03/09/18 09:46 Dose: 100 mls/hr Norepinephrine Bitartrate 8, (000 mcg/ Dextrose) 500 mls @ 18.75 mls/hr IV TITR GARRETT; 5 MCG/MIN PRN Reason: Protocol Last Admin: 03/09/18 07:19 Dose: Not Given Dextrose/Sodium Chloride (D5-1/2ns -) 1,000 mls @ 75 mls/hr IV ASDIR GARRETT Last Admin: 03/08/18 14:21 Dose: 75 mls/hr Midazolam HCl 100 mg/ Sodium (Chloride) 100 mls @ 1 mls/hr IVPB TITR GARRETT; 1 MG/ HR PRN Reason: Protocol Last Admin: 03/09/18 02:00 Dose: 4 mg/hr, 4 mls/hr Midazolam HCl (Versed -) 2 mg IVPUSH Q2H PRN PRN Reason: AGITATION Last Admin: 03/07/18 23:15 Dose: 2 mg Mupirocin (Bactroban Ointment (For Decolonization) -) 1 applic NS BID [facility] Stop: 03/12/18 21:59 Last Admin: 03/09/18 09:43 Dose: 1 applic Oseltamivir Phosphate (Tamiflu -) 75 mg NGT BID [facility] Stop: 03/13/18 09:59 Last Admin: 03/09/18 09:44 Dose: 75 mg Valproate Sodium (Depakene -) 750 mg PO BID [facility] Last Admin: 03/09/18 09:44 Dose: 750 mg PE: Gen: Intubated and sedated HEENT: PERRL, (-) JVP Pulm: clear anterior, diminished bases CV: RRR, (-) murmur ABD; soft, NT, ND, no Hepatosplenomegaly ext: cool, weak peripheral pulses Neuro: Sedated , withdrawals bilterally Laboratory Results - last 24 hr 03/09/18 03/09/18 06:30 06:30 WBC 5.4 RBC 3.23 L Hgb 10.9 L Hct 31.8 L MCV 98.5 H MCH 33.9 H MCHC 34.4 RDW 13.4 Plt Count 128 L MPV 8.0 Neutrophils % 67.4 Lymphocytes % 20.2 D Monocytes % 12.1 H Eosinophils % 0.2 D Basophils % 0.1 Sodium 142 Potassium 3.7 Chloride 108 H Carbon Dioxide 27 Anion Gap 7 L BUN 11 D Creatinine 0.5 L Creat Clearance w eGFR > 60 Random Glucose 72 L D Calcium 7.6 L Phosphorus 1.9 L D Magnesium 1.6 L Total Bilirubin 0.4 D AST 23 D ALT 9 L Alkaline Phosphatase 53 Total Protein 5.0 L Albumin 1.9 L Microbiology 03/07/18 20:06 Urine - Urine - Catheterized Urine Culture - Preliminary Non Lactose Fermenting Gnb 03/07/18 20:06 Urine - Urine Infante Urine Culture - Preliminary Non Lactose Fermenting Gnb 03/07/18 16:28 Blood - Peripheral Venous Blood Culture - Preliminary NO GROWTH OBTAINED AFTER 24 HOURS, INCUBATION TO CONTINUE FOR 4 DAYS. 03/07/18 16:28 Blood - Peripheral Venous Blood Culture - Preliminary NO GROWTH OBTAINED AFTER 24 HOURS, INCUBATION TO CONTINUE FOR 4 DAYS. 03/07/18 20:05 Sputum - Expectorated Gram Stain - Final 03/07/18 20:06 Urine - Urine - Catheterized Legionella Antigen - Final 03/07/18 20:06 Urine - Urine - Catheterized Streptococcus pneumoniae Antigen (M - Final 03/07/18 22:00 Nasopharyngeal Swab Influenza Types A,B Antigen (ERIC) - Final 03/07/18 22:00 Nasopharyngeal Swab - Final Problem List - Problems (1) Sepsis Code(s): A41.9 - SEPSIS, UNSPECIFIED ORGANISM Qualifiers: Sepsis type: sepsis due to unspecified organism Qualified Code(s): A41.9 - Sepsis, unspecified organism (2) MARVIN (acute kidney injury) Code(s): N17.9 - ACUTE KIDNEY FAILURE, UNSPECIFIED (3) Pneumonia Code(s): J18.9 - PNEUMONIA, UNSPECIFIED ORGANISM Qualifiers: Laterality: bilateral Lung location: lower lobe of lung (4) Schizo affective schizophrenia Code(s): F25.0 - SCHIZOAFFECTIVE DISORDER, BIPOLAR TYPE (5) Anemia Code(s): D64.9 - ANEMIA, UNSPECIFIED Qualifiers: Anemia type: unspecified type Qualified Code(s): D64.9 - Anemia, unspecified (6) Demand ischemia Code(s): I24.8 - OTHER FORMS OF ACUTE ISCHEMIC HEART DISEASE IMP: Acute Respiratory Failure Multilobar PNA Influenza B (+) Sepsis UTI AMS Schizoaffective D/O MARVIN Demand ischemia PLAN: ABX per ID, awaiting speciations Follow cultures IVF Lovenox BID Enteral feeds SBTs once mental status improves , daily awakening BD TX ICU monitoring Danuta ACnP [id number] 35min CCT
--- NOTE | 2018-03-09 12:33 | PN ---
Progress Note, Physician Chief Complaint: Events noted Remains intubated and sedated (+) Influenza B History of Present Illness: Patient was seen and examined. Sedated and on mechanical ventilator. Chart was reviewed - Current Medication List Current Medications: Active Medications Acetaminophen (Tylenol -) 650 mg PO Q4H PRN PRN Reason: FEVER Albuterol Sulfate (Ventolin 0.083% Nebulizer Soln -) 1 amp NEB Q4H PRN PRN Reason: SHORT OF BREATH/WHEEZING Aripiprazole (Abilify) 5 mg PO DAILY [facility] Last Admin: 03/09/18 09:43 Dose: 5 mg Bupropion HCl (Wellbutrin Xl -) 150 mg PO DAILY [facility] Last Admin: 03/08/18 10:35 Dose: 150 mg Chlorhexidine Gluconate (Hibiclens For Decolonization -) 1 applic TP HS [facility] Last Admin: 03/08/18 21:49 Dose: 1 applic Chlorhexidine Gluconate (Peridex -) 15 ml MM BID [facility] Last Admin: 03/09/18 09:45 Dose: 15 ml Enoxaparin Sodium (Lovenox -) 70 mg SQ BID [facility] Last Admin: 03/09/18 09:47 Dose: 70 mg Folic Acid (Folic Acid -) 1 mg PO DAILY [facility] Last Admin: 03/09/18 09:47 Dose: 1 mg Gabapentin (Neurontin -) 400 mg PO TID [facility] Last Admin: 03/09/18 06:31 Dose: 400 mg Sodium Chloride (Normal Saline -) 1,000 mls @ 83 mls/hr IV ASDIR [facility] Last Admin: 03/08/18 18:44 Dose: 83 mls/hr Piperacillin Sod/Tazobactam (Sod 2.25 gm/ Dextrose) 50 mls @ 100 mls/hr IVPB Q8H-IV GARRETT PRN Reason: Protocol Last Admin: 03/09/18 09:51 Dose: 100 mls/hr Famotidine/Sodium Chloride (Pepcid 20 Mg Premixed Ivpb -) 20 mg in 50 mls @ 100 mls/hr IVPB DAILY [facility] Last Admin: 03/09/18 09:46 Dose: 100 mls/hr Norepinephrine Bitartrate 8, (000 mcg/ Dextrose) 500 mls @ 18.75 mls/hr IV TITR GARRETT; 5 MCG/MIN PRN Reason: Protocol Last Admin: 03/09/18 07:19 Dose: Not Given Dextrose/Sodium Chloride (D5-1/2ns -) 1,000 mls @ 75 mls/hr IV ASDIR [facility] Last Admin: 03/08/18 14:21 Dose: 75 mls/hr Midazolam HCl 100 mg/ Sodium (Chloride) 100 mls @ 1 mls/hr IVPB TITR GARRETT; 1 MG/ HR PRN Reason: Protocol Last Admin: 03/09/18 02:00 Dose: 4 mg/hr, 4 mls/hr Midazolam HCl (Versed -) 2 mg IVPUSH Q2H PRN PRN Reason: AGITATION Last Admin: 03/07/18 23:15 Dose: 2 mg Mupirocin (Bactroban Ointment (For Decolonization) -) 1 applic NS BID [facility] Stop: 03/12/18 21:59 Last Admin: 03/09/18 09:43 Dose: 1 applic Oseltamivir Phosphate (Tamiflu -) 75 mg NGT BID [facility] Stop: 03/13/18 09:59 Last Admin: 03/09/18 09:44 Dose: 75 mg Valproate Sodium (Depakene -) 750 mg PO BID [facility] Last Admin: 03/09/18 09:44 Dose: 750 mg - Objective Vital Signs: Vital Signs Temperature 100 F H 03/09/18 10:00 Pulse Rate 68 03/09/18 12:26 Respiratory Rate 14 03/09/18 12:26 Blood Pressure 111/76 03/09/18 12:26 O2 Sat by Pulse Oximetry (%) 99 03/09/18 09:00 Cardiovascular: Yes: Regular Rate and Rhythm, S1, S2 Respiratory: Yes: Mechanically Ventilated Gastrointestinal: Yes: Normal Bowel Sounds, Soft. No: Tenderness Edema: No Labs: CBC, BMP 03/09/18 06:30 03/09/18 06:30 INR, PTT INR 1.11 (0.82-1.09) 03/07/18 16:28 - ....Imaging Chest X-ray: Report Reviewed Problem List - Problems (1) Influenza B Code(s): J10.1 - FLU DUE TO OTH IDENT INFLUENZA VIRUS W OTH RESP MANIFEST (2) Acute respiratory failure with hypoxia Code(s): J96.01 - ACUTE RESPIRATORY FAILURE WITH HYPOXIA (3) MARVIN (acute kidney injury) Code(s): N17.9 - ACUTE KIDNEY FAILURE, UNSPECIFIED (4) Demand ischemia Code(s): I24.8 - OTHER FORMS OF ACUTE ISCHEMIC HEART DISEASE (5) Pneumonia Code(s): J18.9 - PNEUMONIA, UNSPECIFIED ORGANISM Qualifiers: Laterality: bilateral Lung location: lower lobe of lung (6) Schizo affective schizophrenia Code(s): F25.0 - SCHIZOAFFECTIVE DISORDER, BIPOLAR TYPE (7) Sepsis Code(s): A41.9 - SEPSIS, UNSPECIFIED ORGANISM Qualifiers: Sepsis type: sepsis due to unspecified organism Qualified Code(s): A41.9 - Sepsis, unspecified organism Assessment/Plan 1. Acute hypoxic respiratory failure now on mechanical ventilation and (+) Influenza B 2. Sepsis with multilobar pneumonia and sepsis 3. History of schiozoaffective disorder 4. MARVIN improving 5. Demand ischemia PLAN: 1. Ventilator management, wean FIO2 as tolerated 2. Trend troponin - coming down 3. Antibiotic coverage 4. Transthoracic echocardiography to assess LV/RV and valvular function 5. DVT prophylaxis Supportive care Guarded Charan Isaac MD
--- NOTE | 2018-03-09 14:00 | PN ---
Progress Note, Physician History of Present Illness: patient still intubated and sedated - Current Medication List Current Medications: Active Medications Acetaminophen (Tylenol -) 650 mg PO Q4H PRN PRN Reason: FEVER Albuterol Sulfate (Ventolin 0.083% Nebulizer Soln -) 1 amp NEB Q4H PRN PRN Reason: SHORT OF BREATH/WHEEZING Aripiprazole (Abilify) 5 mg PO DAILY [facility] Last Admin: 03/09/18 09:43 Dose: 5 mg Bupropion HCl (Wellbutrin Xl -) 150 mg PO DAILY [facility] Last Admin: 03/09/18 13:23 Dose: Not Given Chlorhexidine Gluconate (Hibiclens For Decolonization -) 1 applic TP HS [facility] Last Admin: 03/08/18 21:49 Dose: 1 applic Chlorhexidine Gluconate (Peridex -) 15 ml MM BID [facility] Last Admin: 03/09/18 09:45 Dose: 15 ml Enoxaparin Sodium (Lovenox -) 70 mg SQ BID [facility] Last Admin: 03/09/18 09:47 Dose: 70 mg Folic Acid (Folic Acid -) 1 mg PO DAILY [facility] Last Admin: 03/09/18 09:47 Dose: 1 mg Gabapentin (Neurontin -) 400 mg PO TID [facility] Last Admin: 03/09/18 06:31 Dose: 400 mg Sodium Chloride (Normal Saline -) 1,000 mls @ 83 mls/hr IV ASDIR [facility] Last Admin: 03/08/18 18:44 Dose: 83 mls/hr Piperacillin Sod/Tazobactam (Sod 2.25 gm/ Dextrose) 50 mls @ 100 mls/hr IVPB Q8H-IV GARRETT PRN Reason: Protocol Last Admin: 03/09/18 09:51 Dose: 100 mls/hr Famotidine/Sodium Chloride (Pepcid 20 Mg Premixed Ivpb -) 20 mg in 50 mls @ 100 mls/hr IVPB DAILY [facility] Last Admin: 03/09/18 09:46 Dose: 100 mls/hr Norepinephrine Bitartrate 8, (000 mcg/ Dextrose) 500 mls @ 18.75 mls/hr IV TITR GARRETT; 5 MCG/MIN PRN Reason: Protocol Last Admin: 03/09/18 07:19 Dose: Not Given Dextrose/Sodium Chloride (D5-1/2ns -) 1,000 mls @ 75 mls/hr IV ASDIR [facility] Last Admin: 03/08/18 14:21 Dose: 75 mls/hr Midazolam HCl 100 mg/ Sodium (Chloride) 100 mls @ 1 mls/hr IVPB TITR GARRETT; 1 MG/ HR PRN Reason: Protocol Last Admin: 03/09/18 02:00 Dose: 4 mg/hr, 4 mls/hr Midazolam HCl (Versed -) 2 mg IVPUSH Q2H PRN PRN Reason: AGITATION Last Admin: 03/07/18 23:15 Dose: 2 mg Mupirocin (Bactroban Ointment (For Decolonization) -) 1 applic NS BID [facility] Stop: 03/12/18 21:59 Last Admin: 03/09/18 09:43 Dose: 1 applic Oseltamivir Phosphate (Tamiflu -) 75 mg NGT BID [facility] Stop: 03/13/18 09:59 Last Admin: 03/09/18 09:44 Dose: 75 mg Valproate Sodium (Depakene -) 750 mg PO BID [facility] Last Admin: 03/09/18 09:44 Dose: 750 mg - Objective Vital Signs: Vital Signs Temperature 100 F H 03/09/18 10:00 Pulse Rate 68 03/09/18 12:00 Respiratory Rate 14 03/09/18 12:00 Blood Pressure 111/76 03/09/18 12:00 O2 Sat by Pulse Oximetry (%) 99 03/09/18 09:00 Constitutional: Yes: Other Cardiovascular: Yes: Regular Rate and Rhythm Respiratory: Yes: Intubated, Mechanically Ventilated Gastrointestinal: Yes: Normal Bowel Sounds, Soft Musculoskeletal: Yes: WNL Extremities: Yes: Delayed Capillary Refill Neurological: Yes: Other Labs: CBC, BMP 03/09/18 06:30 03/09/18 06:30 INR, PTT INR 1.11 (0.82-1.09) 03/07/18 16:28 Assessment/Plan Problem List - Problems (1) Sepsis Code(s): A41.9 - SEPSIS, UNSPECIFIED ORGANISM Qualifiers: Sepsis type: sepsis due to unspecified organism Qualified Code(s): A41.9 - Sepsis, unspecified organism (2) MARVIN (acute kidney injury) Code(s): N17.9 - ACUTE KIDNEY FAILURE, UNSPECIFIED (3) Pneumonia Code(s): J18.9 - PNEUMONIA, UNSPECIFIED ORGANISM Qualifiers: Laterality: bilateral Lung location: lower lobe of lung (4) Schizo affective schizophrenia Code(s): F25.0 - SCHIZOAFFECTIVE DISORDER, BIPOLAR TYPE (5) Anemia Code(s): D64.9 - ANEMIA, UNSPECIFIED Qualifiers: Anemia type: unspecified type Qualified Code(s): D64.9 - Anemia, unspecified (6) Demand ischemia Code(s): I24.8 - OTHER FORMS OF ACUTE ISCHEMIC HEART DISEASE IMP: Acute Respiratory Failure Multilobar PNA Influenza B (+) Sepsis UTI AMS Schizoaffective D/O MARVIN patient with influena and pneumonia and uti contributing to his condition patient current on zosyn wbc normal with all his cx report pending plan continue current mgmt continue monitoring closely avoid aspiration await for identification of the organism suction await for all cx reports resp suport rest as per icu cc 40 min
[2018-03-09] MEDS: ACETAMINOPHEN 325 MG TABLET (FP) PO PRN (14:14)
[2018-03-09 15:59] VITALS: BMI 22.6
[2018-03-09] MEDS: SODIUM CHLORIDE 1,000 ML IV SCH (19:55)
[2018-03-09] MEDS: MIDAZOLAM HCL 2 MG/2 ML SINGLE DOSE VIAL IVPUSH PRN (22:03)
[2018-03-09] MEDS: CHLORHEXIDINE GLUCONATE 4% CLEANSER FOR DECOLONIZATION TP SCH (22:04)
[2018-03-09] MEDS: DEXTROSE 5%-0.45% SALINE 1,000 ML IV SCH (23:00)
[2018-03-10] MEDS ORDERED: PIPERACILLIN/TAZOBACTAM 2.25 GM VIAL IVPB ONE ×3 (00:03→17:09)
[2018-03-10] MEDS ORDERED: DEXTROSE 5%-WATER - 50 ML IVPB ONE ×3 (00:04→17:09)
[2018-03-10] MEDS: PIPERACILLIN/TAZOB 2.25 GM 2.25 GM in DEXTROSE 5%-WATER - 50 ML IVPB SCH ×3 (01:14→17:48)
[2018-03-10 05:59] LABS: HEMATOCRIT 31.5 % (35.4-49); HEMOGLOBIN 11.2 GM/dL (11.7-16.9); MCH 34.3 pg (25.7-33.7); MCHC 35.4 g/dl (32.0-35.9); MEAN CELL VOLUME 96.7 fl (80-96); MEAN PLT VOLUME 7.7 fl (7.5-11.1); PLATELET COUNT 171 K/MM3 (134-434); RBC 3.26 M/mm3 (4.00-5.60); RDW 12.8 % (11.9-15.9); WHITE BLOOD COUNT 4.4 K/mm3 (4.0-10.0)
[2018-03-10 06:25] LABS: ALBUMIN 1.9 g/dl (3.4-5.0); ANION GAP 8 (8-16); BLOOD UREA NITROGEN 10 mg/dL (7-18); CALCIUM 7.5 mg/dL (8.5-10.1); CHLORIDE 105 mmol/L (98-107); CO2 29 mmol/L (21-32); CREATININE 0.4 mg/dL (0.7-1.3); GLUCOSE,RANDOM 78 mg/dL (74-106); POTASSIUM 3.7 mmol/L (3.5-5.1); SGOT/AST 21 U/L (15-37); SGPT/ALT 8 U/L (12-78); SODIUM 142 mmol/L (136-145)
[2018-03-10 06:27] LABS: ALK PHOS 57 U/L (45-117); BILIRUBIN,TOTAL 0.5 mg/dL (0.2-1.0); TOT PROT 5.4 g/dl (6.4-8.2)
[2018-03-10] MEDS: GABAPENTIN 400 MG CAPSULE (FP) PO SCH ×4 (06:37→21:32)
[2018-03-10] MEDS: DEXTROSE 5%-0.45% SALINE 1,000 ML IV SCH (06:41)
[2018-03-10] MEDS ORDERED: PT OWN MED DRAWER 7, Y5N ONE (08:33)
--- NOTE | 2018-03-10 08:46 | PN ---
Progress Note (short form) - Note Progress Note: Pulm/CCM SUBJECTIVE: Patient seen and examined in the ICU. -awake -passing SBT this morning, will extubated -low grade temp Vital Signs Temp 99.3 F 03/10/18 06:00 Pulse 73 03/10/18 06:00 Resp 15 03/10/18 08:32 BP 125/97 03/10/18 06:00 Pulse Ox 100 03/10/18 08:32 Intake & Output 03/09/18 03/09/18 03/10/18 11:59 23:59 11:59 Intake Total 609 392 736 Output Total 800 400 500 Balance -191 -8 236 Weight 75.795 kg 75.795 kg 75.024 kg Intake: IV 609 332 656 D5-1/2Ns - 1,000 ml @ 75 581 332 656 mls/hr IV ASDIR GARRETT Rx#: [id number] Versed - 100 mg In Normal 28 Saline - 100 ml @ 1 MG/ HR 1 mls/hr IVPB TITR GARRETT Rx#:[id number] IVPB 50 Tube Irrigant 60 30 Output: Urine 800 400 500 Infante 800 400 500 Other: Voiding Method Indwelling Catheter Indwelling Catheter Bowel Movement No No Yes: pasty, medium # Bowel Movements 1 Height 6 ft Body Mass Index (BMI) 22.6 Weight Measurement Method Built in [facility] Built in [facility] PE: Gen: Intubated and calm awake HEENT: PERRL, (-) JVP Pulm: clear anterior, diminished bases CV: RRR, (-) murmur ABD; soft, slightly distended ext: cool, weak peripheral pulses Neuro: Moves bilaterally CBCD WBC 4.4 K/mm3 (4.0-10.0) 03/10/18 05:45 RBC 3.26 M/mm3 (4.00-5.60) L 03/10/18 05:45 Hgb 11.2 GM/dL (11.7-16.9) L 03/10/18 05:45 Hct 31.5 % (35.4-49) L 03/10/18 05:45 MCV 96.7 fl (80-96) H 03/10/18 05:45 MCHC 35.4 g/dl (32.0-35.9) 03/10/18 05:45 RDW 12.8 % (11.9-15.9) 03/10/18 05:45 Plt Count 171 K/MM3 (134-434) D 03/10/18 05:45 MPV 7.7 fl (7.5-11.1) 03/10/18 05:45 CMP Sodium 142 mmol/L (136-145) 03/10/18 05:45 Potassium 3.7 mmol/L (3.5-5.1) 03/10/18 05:45 Chloride 105 mmol/L (98-107) 03/10/18 05:45 Carbon Dioxide 29 mmol/L (21-32) 03/10/18 05:45 Anion Gap 8 (8-16) 03/10/18 05:45 BUN 10 mg/dL (7-18) 03/10/18 05:45 Creatinine 0.4 mg/dL (0.7-1.3) L 03/10/18 05:45 Creat Clearance w eGFR > 60 (>60) 03/10/18 05:45 Calcium 7.5 mg/dL (8.5-10.1) L 03/10/18 05:45 Total Bilirubin 0.5 mg/dL (0.2-1.0) D 03/10/18 05:45 AST 21 U/L (15-37) 03/10/18 05:45 ALT 8 U/L (12-78) L 03/10/18 05:45 Alkaline Phosphatase 57 U/L (45-117) 03/10/18 05:45 Total Protein 5.4 g/dl (6.4-8.2) L 03/10/18 05:45 Albumin 1.9 g/dl (3.4-5.0) L 03/10/18 05:45 Microbiology 03/07/18 16:28 Blood - Peripheral Venous Blood Culture - Preliminary NO GROWTH OBTAINED AFTER 48 HOURS, INCUBATION TO CONTINUE FOR 3 DAYS. 03/07/18 16:28 Blood - Peripheral Venous Blood Culture - Preliminary NO GROWTH OBTAINED AFTER 48 HOURS, INCUBATION TO CONTINUE FOR 3 DAYS. 03/07/18 20:05 Sputum - Expectorated Gram Stain - Final 03/07/18 20:05 Sputum - Expectorated Sputum Culture - Preliminary NORMAL RESPIRATORY DELGADO 03/07/18 20:06 Urine - Urine - Catheterized Urine Culture - Preliminary Non Lactose Fermenting Gnb 03/07/18 20:06 Urine - Urine [place] Urine Culture - Preliminary Non Lactose Fermenting Gnb 03/07/18 20:06 Urine - Urine - Catheterized Legionella Antigen - Final 03/07/18 20:06 Urine - Urine - Catheterized Streptococcus pneumoniae Antigen (M - Final 03/07/18 22:00 Nasopharyngeal Swab Influenza Types A,B Antigen (ERIC) - Final 03/07/18 22:00 Nasopharyngeal Swab - Final l Problem List - Problems (1) Sepsis Code(s): A41.9 - SEPSIS, UNSPECIFIED ORGANISM Qualifiers: Sepsis type: sepsis due to unspecified organism Qualified Code(s): A41.9 - Sepsis, unspecified organism (2) MARVIN (acute kidney injury) Code(s): N17.9 - ACUTE KIDNEY FAILURE, UNSPECIFIED (3) Pneumonia Code(s): J18.9 - PNEUMONIA, UNSPECIFIED ORGANISM Qualifiers: Laterality: bilateral Lung location: lower lobe of lung (4) Schizo affective schizophrenia Code(s): F25.0 - SCHIZOAFFECTIVE DISORDER, BIPOLAR TYPE (5) Anemia Code(s): D64.9 - ANEMIA, UNSPECIFIED Qualifiers: Anemia type: unspecified type Qualified Code(s): D64.9 - Anemia, unspecified (6) Demand ischemia Code(s): I24.8 - OTHER FORMS OF ACUTE ISCHEMIC HEART DISEASE IMP: Acute Respiratory Failure Multilobar PNA Influenza B (+) Sepsis UTI AMS Schizoaffective D/O MARVIN Demand ischemia PLAN: ABX per ID, awaiting speciations still tamiflu Follow cultures IVF, hold today Lovenox BID Will start feeds, speech and swallow on sunday SBTs once mental status improves , daily awakening cont psych regimen BD TX ICU monitoring Danuta ACNP [id number] 35min CCT
[2018-03-10] MEDS: FAMOTIDINE 20 MG/50 ML IVPB 20 MG/50 ML MG IVPB SCH (09:04)
[2018-03-10] MEDS: OSELTAMIVIR PHOSPHATE 75 MG CAPSULE NGT SCH ×2 (09:04→22:13)
[2018-03-10] MEDS: FOLIC ACID 1 MG TABLET (FP) PO SCH (09:04)
[2018-03-10] MEDS: MUPIROCIN 2% TOPICAL OINTMENT FOR DECOLONIZATION NS SCH ×2 (09:05→21:33)
[2018-03-10] MEDS: ARIPiprazole 5 MG TABLET (FP) PO SCH (09:05)
[2018-03-10] MEDS: VALPROATE SODIUM 250 MG/5 ML UNIT DOSE CUP PO SCH ×2 (09:05→22:13)
[2018-03-10] MEDS: CHLORHEXIDINE GLUCONATE 0.12% 15ML CUP MM SCH ×2 (09:05→21:33)
[2018-03-10] MEDS: ACETAMINOPHEN 325 MG TABLET (FP) PO PRN (09:11)
[2018-03-10] MEDS: ENOXAPARIN NA (PORCINE) 40 MG/0.4 ML DISP.SYRIN SQ SCH (09:12)
--- NOTE | 2018-03-10 10:49 | PN ---
Progress Note, Physician Chief Complaint: Extubated on ventimask awake, follows commands - Current Medication List Current Medications: Active Medications Acetaminophen (Tylenol -) 650 mg PO Q4H PRN PRN Reason: FEVER Last Admin: 03/10/18 09:11 Dose: 650 mg Albuterol Sulfate (Ventolin 0.083% Nebulizer Soln -) 1 amp NEB Q4H PRN PRN Reason: SHORT OF BREATH/WHEEZING Aripiprazole (Abilify) 5 mg PO DAILY [facility] Last Admin: 03/10/18 09:05 Dose: 5 mg Chlorhexidine Gluconate (Hibiclens For Decolonization -) 1 applic TP HS [facility] Last Admin: 03/09/18 22:04 Dose: 1 applic Chlorhexidine Gluconate (Peridex -) 15 ml MM BID [facility] Last Admin: 03/10/18 09:05 Dose: 15 ml Enoxaparin Sodium (Lovenox -) 40 mg SQ DAILY [facility] Last Admin: 03/10/18 09:12 Dose: 40 mg Fentanyl (Sublimaze Injection -) 50 mcg IVPUSH Q2H PRN PRN Reason: PAIN LEVEL 1-5 Stop: 03/10/18 14:29 Folic Acid (Folic Acid -) 1 mg PO DAILY [facility] Last Admin: 03/10/18 09:04 Dose: 1 mg Gabapentin (Neurontin -) 400 mg PO TID [facility] Last Admin: 03/10/18 06:37 Dose: 400 mg Piperacillin Sod/Tazobactam (Sod 2.25 gm/ Dextrose) 50 mls @ 100 mls/hr IVPB Q8H-IV GARRETT PRN Reason: Protocol Last Admin: 03/10/18 09:04 Dose: 100 mls/hr Famotidine/Sodium Chloride (Pepcid 20 Mg Premixed Ivpb -) 20 mg in 50 mls @ 100 mls/hr IVPB DAILY [facility] Last Admin: 03/10/18 09:04 Dose: 100 mls/hr Norepinephrine Bitartrate 8, (000 mcg/ Dextrose) 500 mls @ 18.75 mls/hr IV TITR GARRETT; 5 MCG/MIN PRN Reason: Protocol Last Admin: 03/09/18 23:00 Dose: Not Given Dextrose/Sodium Chloride (D5-1/2ns -) 1,000 mls @ 75 mls/hr IV ASDIR [facility] Last Admin: 03/10/18 06:41 Dose: 75 mls/hr Midazolam HCl (Versed -) 2 mg IVPUSH Q2H PRN PRN Reason: AGITATION Last Admin: 03/09/18 22:03 Dose: 2 mg Mupirocin (Bactroban Ointment (For Decolonization) -) 1 applic NS BID [facility] Stop: 03/12/18 21:59 Last Admin: 03/10/18 09:05 Dose: 1 applic Oseltamivir Phosphate (Tamiflu -) 75 mg NGT BID [facility] Stop: 03/13/18 09:59 Last Admin: 03/10/18 09:04 Dose: 75 mg Valproate Sodium (Depakene -) 750 mg PO BID [facility] Last Admin: 03/10/18 09:05 Dose: 750 mg - Objective Vital Signs: Vital Signs Temperature 99.3 F 03/10/18 06:00 Pulse Rate 73 03/10/18 06:00 Respiratory Rate 15 03/10/18 08:32 Blood Pressure 125/97 03/10/18 06:00 O2 Sat by Pulse Oximetry (%) 100 03/10/18 08:32 Constitutional: Yes: No Distress Cardiovascular: Yes: Regular Rate and Rhythm Respiratory: Yes: Diminished Gastrointestinal: Yes: Normal Bowel Sounds, Soft. No: Tenderness Edema: No Labs: CBC, BMP 03/10/18 05:45 03/10/18 05:45 INR, PTT INR 1.11 (0.82-1.09) 03/07/18 16:28 Problem List - Problems (1) Acute respiratory failure with hypoxia Code(s): J96.01 - ACUTE RESPIRATORY FAILURE WITH HYPOXIA (2) Anemia Code(s): D64.9 - ANEMIA, UNSPECIFIED Qualifiers: Anemia type: unspecified type Qualified Code(s): D64.9 - Anemia, unspecified (3) Influenza B Code(s): J10.1 - FLU DUE TO OTH IDENT INFLUENZA VIRUS W OTH RESP MANIFEST (4) Schizo affective schizophrenia Code(s): F25.0 - SCHIZOAFFECTIVE DISORDER, BIPOLAR TYPE Assessment/Plan PLAN Continue with iv antibiotics urine cultures - pseuodmonas blood cultures negative continue with Tamiflu iv fluids troponins elevated due to sepsis
--- NOTE | 2018-03-10 15:31 | PN ---
Progress Note, Physician Chief Complaint: Events noted (+) Influenza B Extubated on ventimask History of Present Illness: Patient was seen and examined. Ventimask. Chart was reviewed - Current Medication List Current Medications: Active Medications Acetaminophen (Tylenol -) 650 mg PO Q4H PRN PRN Reason: FEVER Last Admin: 03/10/18 09:11 Dose: 650 mg Albuterol Sulfate (Ventolin 0.083% Nebulizer Soln -) 1 amp NEB Q4H PRN PRN Reason: SHORT OF BREATH/WHEEZING Aripiprazole (Abilify) 5 mg PO DAILY [facility] Last Admin: 03/10/18 09:05 Dose: 5 mg Chlorhexidine Gluconate (Hibiclens For Decolonization -) 1 applic TP HS [facility] Last Admin: 03/09/18 22:04 Dose: 1 applic Chlorhexidine Gluconate (Peridex -) 15 ml MM BID [facility] Last Admin: 03/10/18 09:05 Dose: 15 ml Enoxaparin Sodium (Lovenox -) 40 mg SQ DAILY [facility] Last Admin: 03/10/18 09:12 Dose: 40 mg Folic Acid (Folic Acid -) 1 mg PO DAILY [facility] Last Admin: 03/10/18 09:04 Dose: 1 mg Gabapentin (Neurontin -) 400 mg PO TID [facility] Last Admin: 03/10/18 15:00 Dose: 400 mg Piperacillin Sod/Tazobactam (Sod 2.25 gm/ Dextrose) 50 mls @ 100 mls/hr IVPB Q8H-IV [facility] PRN Reason: Protocol Last Admin: 03/10/18 09:04 Dose: 100 mls/hr Famotidine/Sodium Chloride (Pepcid 20 Mg Premixed Ivpb -) 20 mg in 50 mls @ 100 mls/hr IVPB DAILY [facility] Last Admin: 03/10/18 09:04 Dose: 100 mls/hr Norepinephrine Bitartrate 8, (000 mcg/ Dextrose) 500 mls @ 18.75 mls/hr IV TITR [facility]; 5 MCG/MIN PRN Reason: Protocol Last Admin: 03/09/18 23:00 Dose: Not Given Dextrose/Sodium Chloride (D5-1/2ns -) 1,000 mls @ 75 mls/hr IV ASDIR [facility] Last Admin: 03/10/18 06:41 Dose: 75 mls/hr Midazolam HCl (Versed -) 2 mg IVPUSH Q2H PRN PRN Reason: AGITATION Last Admin: 03/09/18 22:03 Dose: 2 mg Mupirocin (Bactroban Ointment (For Decolonization) -) 1 applic NS BID [facility] Stop: 03/12/18 21:59 Last Admin: 03/10/18 09:05 Dose: 1 applic Oseltamivir Phosphate (Tamiflu -) 75 mg NGT BID [facility] Stop: 03/13/18 09:59 Last Admin: 03/10/18 09:04 Dose: 75 mg Valproate Sodium (Depakene -) 750 mg PO BID [facility] Last Admin: 03/10/18 09:05 Dose: 750 mg - Objective Vital Signs: Vital Signs Temperature 99.5 F 03/10/18 10:00 Pulse Rate 80 03/10/18 12:00 Respiratory Rate 17 03/10/18 12:00 Blood Pressure 133/89 03/10/18 12:00 O2 Sat by Pulse Oximetry (%) 99 03/10/18 13:27 HENT: Yes: Atraumatic Neck: Yes: Supple Cardiovascular: Yes: Regular Rate and Rhythm, S1, S2 Respiratory: Yes: Diminished Gastrointestinal: Yes: Normal Bowel Sounds. No: Tenderness Edema: No Labs: CBC, BMP 03/10/18 05:45 03/10/18 05:45 Problem List - Problems (1) Influenza B Code(s): J10.1 - FLU DUE TO OTH IDENT INFLUENZA VIRUS W OTH RESP MANIFEST (2) Acute respiratory failure with hypoxia Code(s): J96.01 - ACUTE RESPIRATORY FAILURE WITH HYPOXIA (3) MARVIN (acute kidney injury) Code(s): N17.9 - ACUTE KIDNEY FAILURE, UNSPECIFIED (4) Demand ischemia Code(s): I24.8 - OTHER FORMS OF ACUTE ISCHEMIC HEART DISEASE (5) Pneumonia Code(s): J18.9 - PNEUMONIA, UNSPECIFIED ORGANISM Qualifiers: Laterality: bilateral Lung location: lower lobe of lung (6) Schizo affective schizophrenia Code(s): F25.0 - SCHIZOAFFECTIVE DISORDER, BIPOLAR TYPE (7) Sepsis Code(s): A41.9 - SEPSIS, UNSPECIFIED ORGANISM Qualifiers: Sepsis type: sepsis due to unspecified organism Qualified Code(s): A41.9 - Sepsis, unspecified organism Assessment/Plan 1. Acute hypoxic respiratory failure post mechanical ventilation now extubated and (+) Influenza B 2. Sepsis with multilobar pneumonia and sepsis 3. History of schiozoaffective disorder 4. MARVIN improving 5. Demand ischemia PLAN: 1. O2 vis FM and monitor O2 sat 2. Trend troponin 3. Antibiotic coverage 4. Transthoracic echocardiography to assess LV/RV and valvular function 5. DVT prophylaxis Supportive care Guarded Charan Isaac MD
[2018-03-10] MEDS: CHLORHEXIDINE GLUCONATE 4% CLEANSER FOR DECOLONIZATION TP SCH (21:32)
[2018-03-10] MEDS: NOREPINEPHRINE BITARTRATE 8,000 MCG in DEXTROSE 5%-WATER - 492 ML IV SCH (22:16)
[2018-03-11] MEDS ORDERED: PIPERACILLIN/TAZOBACTAM 2.25 GM VIAL IVPB ONE ×3 (01:52→16:59)
[2018-03-11] MEDS ORDERED: DEXTROSE 5%-WATER - 50 ML IVPB ONE ×3 (01:53→16:59)
[2018-03-11] MEDS: PIPERACILLIN/TAZOB 2.25 GM 2.25 GM in DEXTROSE 5%-WATER - 50 ML IVPB SCH ×3 (02:24→17:18)
[2018-03-11] MEDS: DEXTROSE 5%-0.45% SALINE 1,000 ML IV SCH ×3 (02:37→19:30)
[2018-03-11 05:51] LABS: HEMATOCRIT 32.6 % (35.4-49); HEMOGLOBIN 11.6 GM/dL (11.7-16.9); MCH 34.1 pg (25.7-33.7); MCHC 35.5 g/dl (32.0-35.9); MEAN CELL VOLUME 96.1 fl (80-96); MEAN PLT VOLUME 7.1 fl (7.5-11.1); PLATELET COUNT 178 K/MM3 (134-434); RDW 12.8 % (11.9-15.9); WHITE BLOOD COUNT 3.6 K/mm3 (4.0-10.0)
[2018-03-11] MEDS: GABAPENTIN 400 MG CAPSULE (FP) PO SCH ×3 (05:54→21:32)
[2018-03-11 06:32] LABS: ANION GAP 6 (8-16); BLOOD UREA NITROGEN 6 mg/dL (7-18); CHLORIDE 103 mmol/L (98-107); CO2 32 mmol/L (21-32); CREATININE 0.5 mg/dL (0.7-1.3); GLUCOSE,RANDOM 98 mg/dL (74-106); POTASSIUM 3.4 mmol/L (3.5-5.1); SGPT/ALT 9 U/L (12-78); SODIUM 141 mmol/L (136-145)
[2018-03-11 06:34] LABS: ALK PHOS 60 U/L (45-117); BILIRUBIN,TOTAL 0.4 mg/dL (0.2-1.0); SGOT/AST 21 U/L (15-37); TOT PROT 5.6 g/dl (6.4-8.2)
[2018-03-11] MEDS ORDERED: POTASSIUM CHLORIDE TABS 20 MEQ TABLET.ER (FP) PO ONE (08:00)
[2018-03-11] MEDS ORDERED: POTASSIUM CHLORIDE ORAL LIQUID 20 MEQ/15 ML PO ONE (08:33)
[2018-03-11] MEDS ORDERED: PT OWN MED DRAWER 7, Y5N ONE ×2 (08:35→21:28)
[2018-03-11] MEDS: KCL 10 MEQ IVPB 10 MEQ/100 ML INFUS.BAG IVPB SCH ×2 (09:00→10:00)
[2018-03-11 09:01] LABS: MAGNESIUM 1.8 mg/dL (1.8-2.4)
[2018-03-11] MEDS: ARIPiprazole 5 MG TABLET (FP) PO SCH (09:24)
[2018-03-11] MEDS: MUPIROCIN 2% TOPICAL OINTMENT FOR DECOLONIZATION NS SCH ×2 (09:24→21:33)
[2018-03-11] MEDS: VALPROATE SODIUM 250 MG/5 ML UNIT DOSE CUP PO SCH ×2 (09:24→21:31)
[2018-03-11] MEDS: OSELTAMIVIR PHOSPHATE 75 MG CAPSULE NGT SCH ×2 (09:25→21:31)
[2018-03-11] MEDS: FAMOTIDINE 20 MG/50 ML IVPB 20 MG/50 ML MG IVPB SCH (09:26)
[2018-03-11] MEDS: FOLIC ACID 1 MG TABLET (FP) PO SCH (09:27)
[2018-03-11] MEDS: ENOXAPARIN NA (PORCINE) 40 MG/0.4 ML DISP.SYRIN SQ SCH (09:27)
[2018-03-11] MEDS: CHLORHEXIDINE GLUCONATE 0.12% 15ML CUP MM SCH (09:27)
--- NOTE | 2018-03-11 11:50 | PN ---
Physical Exam: SUBJECTIVE: Patient seen and examined Pt extubated yesterday. This am, pt satting well on NC. Pt denies headache, chest pain, SOB, cough, abdominal pain, n/v/d/c, and dysuria. OBJECTIVE: Vital Signs Period Temp Pulse Resp BP Sys/[place] Pulse Ox Last 24 Hr 98.4 F-99.1 F 45-80 9-18 98-147/67-97 98-99 GENERAL: elderly male, lying in bed, breathing on NC, AAOx1 (name), speaking in one word sentences, lethargic-appearing HEENT: NC, AT, slightly dry mucous membranes LUNGS: left-sided rales HEART: RRR, no murmurs appreciated ABDOMEN: soft, NT, ND EXTREMITIES: no edema NEUROLOGICAL: AAOx1 (name), speaking in one word sentences Laboratory Results - last 24 hr 03/11/18 03/11/18 05:35 05:35 WBC 3.6 L RBC 3.40 L Hgb 11.6 L Hct 32.6 L MCV 96.1 H MCH 34.1 H MCHC 35.5 RDW 12.8 Plt Count 178 MPV 7.1 L Sodium 141 Potassium 3.4 L Chloride 103 Carbon Dioxide 32 Anion Gap 6 L BUN 6 L D Creatinine 0.5 L D Creat Clearance w eGFR > 60 Random Glucose 98 D Calcium 8.0 L Magnesium 1.8 Total Bilirubin 0.4 AST 21 ALT 9 L Alkaline Phosphatase 60 Troponin I 0.22 H D Total Protein 5.6 L Albumin 2.0 L Active Medications Generic Name Dose Route Start Last Admin Trade Name Freq PRN Reason Stop Dose Admin Acetaminophen 650 mg 03/07/18 19:42 03/10/18 09:11 Tylenol - PO 650 mg Q4H PRN Administration FEVER Albuterol Sulfate 1 amp 03/07/18 18:07 Ventolin 0.083% Nebulizer Soln - NEB Q4H PRN SHORT OF BREATH/WHEEZING Aripiprazole 5 mg 03/08/18 10:00 03/11/18 09:24 Abilify PO 5 mg DAILY [facility] Administration Bupropion HCl 150 mg 03/11/18 11:45 Wellbutrin Xl - PO DAILY [facility] Chlorhexidine Gluconate 1 applic 03/07/18 22:00 03/10/18 21:32 Hibiclens For Decolonization - TP 1 applic HS [facility] Administration Chlorhexidine Gluconate 15 ml 03/07/18 23:15 03/11/18 09:27 Peridex - MM 15 ml BID [facility] Administration Enoxaparin Sodium 40 mg 03/10/18 10:00 03/11/18 09:27 Lovenox - SQ 40 mg DAILY [facility] Administration Folic Acid 1 mg 03/08/18 10:00 03/11/18 09:27 Folic Acid - PO 1 mg DAILY [facility] Administration Gabapentin 400 mg 03/07/18 22:00 03/11/18 05:54 Neurontin - PO 400 mg TID [facility] Administration Piperacillin Sod/Tazobactam 50 mls @ 100 mls/hr 03/08/18 02:00 03/11/18 09:26 Sod 2.25 gm/ Dextrose IVPB 100 mls/hr Q8H-IV [facility]RETT Administration Protocol Famotidine/Sodium Chloride 20 mg in 50 mls @ 100 mls/hr 03/08/18 10:00 09:26 Pepcid 20 Mg Premixed Ivpb - IVPB 100 mls/hr DAILY [facility] Administration Norepinephrine Bitartrate 8, 500 mls @ 18.75 mls/hr 03/07/18 23:15 03/10/18 22:16 000 mcg/ Dextrose IV Not Given TITR [facility] Protocol 5 MCG/MIN Dextrose/Sodium Chloride 1,000 mls @ 75 mls/hr 03/07/18 23:30 03/11/18 02:37 D5-1/2ns - IV 75 mls/hr ASDIR [facility] Administration Mupirocin 1 applic 03/07/18 22:00 03/11/18 09:24 Bactroban Ointment (For Decolonization) - NS 03/12/18 21:59 1 applic BID [facility] Administration Oseltamivir Phosphate 75 mg 03/08/18 10:00 03/11/18 09:25 Tamiflu - NGT 03/13/18 09:59 75 mg BID [facility] Administration Valproate Sodium 750 mg 03/08/18 12:00 03/11/18 09:24 Depakene - PO 750 mg BID [facility] Administration ASSESSMENT/PLAN: 73M w/ hx of schizophrenia, bipolar disorder, DVT, CHF, HTN, TURP, recent hip replacement who presented from [facility] with AMS, hypotension, and fever, being treated for PNA, UTI, and influenza B. ID #severe sepsis- 2/2 UTI vs. PNA vs. flu -ID on board, appreciate recs -Ucx: pseudomonas, gómez-sensitive -Bcx: negative x 72hrs -no leukocytosis, afebrile -APAP for fever -central line to be removed, no pressors ever required -continue zosyn and tamiflu as per ID -D5-1/2NS @ 75 -contact precautions CV #HTN -home meds held 2/2 hypotension #CHF -pt not in fluid overload state #bradycardia -possibly 2/2 hypoxemia from extubation -f/u EKG and trop Hematology #anemia -Hgb of 11.6, stable -continue to trend Renal #MARVIN -resolved, creatinine of 0.5 today Resp #acute hypoxic respiratory failure -extubated on 03/10, satting well on NC -albuterol nebs PRN Psych #schizophrenia and bipolar -continue home meds including neurontin, valproic acid, and bupropion FEN/ppx -D5-1/2NS @ 75 -K repleted -diet pending S&S recs -pepcid for GI ppx -lovenox 40 Dispo -stable for transfer to telemetry -PT eval Case discussed with attending, Dr. Conley. -Erik Lees MD PGY1 Visit type - Emergency Visit Emergency Visit: Yes ED Registration Date: 03/07/18 Care time: The patient presented to the Emergency Department on the above date and was hospitalized for further evaluation of their emergent condition. - New Patient This patient is new to me today: No - Critical Care Critical Care patient: Yes Total Critical Care Time (in minutes): 38 Critical Care Statement: The care of this patient involved high complexity decision making to prevent further life threatening deterioration of the patient 's condition and/or to evaluate & treat vital organ system(s) failure or risk of failure.
--- NOTE | 2018-03-11 12:29 | PN ---
Progress Note, Physician History of Present Illness: Remains extubated, weaned to NC. - Current Medication List Current Medications: Active Medications Acetaminophen (Tylenol -) 650 mg PO Q4H PRN PRN Reason: FEVER Last Admin: 03/10/18 09:11 Dose: 650 mg Albuterol Sulfate (Ventolin 0.083% Nebulizer Soln -) 1 amp NEB Q4H PRN PRN Reason: SHORT OF BREATH/WHEEZING Aripiprazole (Abilify) 5 mg PO DAILY [facility] Last Admin: 03/11/18 09:24 Dose: 5 mg Bupropion HCl (Wellbutrin Xl -) 150 mg PO DAILY [facility] Chlorhexidine Gluconate (Hibiclens For Decolonization -) 1 applic TP HS [facility] Last Admin: 03/10/18 21:32 Dose: 1 applic Chlorhexidine Gluconate (Peridex -) 15 ml MM BID [facility] Last Admin: 03/11/18 09:27 Dose: 15 ml Enoxaparin Sodium (Lovenox -) 40 mg SQ DAILY [facility] Last Admin: 03/11/18 09:27 Dose: 40 mg Folic Acid (Folic Acid -) 1 mg PO DAILY [facility] Last Admin: 03/11/18 09:27 Dose: 1 mg Gabapentin (Neurontin -) 400 mg PO TID [facility] Last Admin: 03/11/18 05:54 Dose: 400 mg Piperacillin Sod/Tazobactam (Sod 2.25 gm/ Dextrose) 50 mls @ 100 mls/hr IVPB Q8H-IV [facility] PRN Reason: Protocol Last Admin: 03/11/18 09:26 Dose: 100 mls/hr Famotidine/Sodium Chloride (Pepcid 20 Mg Premixed Ivpb -) 20 mg in 50 mls @ 100 mls/hr IVPB DAILY [facility] Last Admin: 03/11/18 09:26 Dose: 100 mls/hr Norepinephrine Bitartrate 8, (000 mcg/ Dextrose) 500 mls @ 18.75 mls/hr IV TITR [facility]ARRETT; 5 MCG/MIN PRN Reason: Protocol Last Admin: 03/10/18 22:16 Dose: Not Given Dextrose/Sodium Chloride (D5-1/2ns -) 1,000 mls @ 75 mls/hr IV ASDIR [facility] Last Admin: 03/11/18 02:37 Dose: 75 mls/hr Mupirocin (Bactroban Ointment (For Decolonization) -) 1 applic NS BID [facility] Stop: 03/12/18 21:59 Last Admin: 03/11/18 09:24 Dose: 1 applic Oseltamivir Phosphate (Tamiflu -) 75 mg NGT BID [facility] Stop: 03/13/18 09:59 Last Admin: 03/11/18 09:25 Dose: 75 mg Valproate Sodium (Depakene -) 750 mg PO BID [facility] Last Admin: 03/11/18 09:24 Dose: 750 mg - Objective Vital Signs: Vital Signs Temperature 98 F 03/11/18 12:05 Pulse Rate 59 L 03/11/18 12:05 Respiratory Rate 15 03/11/18 12:05 Blood Pressure 132/76 03/11/18 12:05 O2 Sat by Pulse Oximetry (%) 99 03/11/18 08:09 Constitutional: Yes: No Distress, Calm Neck: Yes: Supple Cardiovascular: Yes: Regular Rate and Rhythm Respiratory: Yes: Regular, Diminished, On Nasal O2 Gastrointestinal: Yes: Normal Bowel Sounds, Soft Edema: No Labs: CBC, BMP 03/11/18 05:35 03/11/18 05:35 INR, PTT INR 1.11 (0.82-1.09) 03/07/18 16:28 - ....Imaging Chest X-ray: Report Reviewed (Left effusion, no PTX) EKG: Report Reviewed (Tele: nsr) Problem List - Problems (1) Sepsis Code(s): A41.9 - SEPSIS, UNSPECIFIED ORGANISM Qualifiers: Sepsis type: sepsis due to unspecified organism Qualified Code(s): A41.9 - Sepsis, unspecified organism (2) MARVIN (acute kidney injury) Code(s): N17.9 - ACUTE KIDNEY FAILURE, UNSPECIFIED (3) Pneumonia Code(s): J18.9 - PNEUMONIA, UNSPECIFIED ORGANISM Qualifiers: Laterality: bilateral Lung location: lower lobe of lung (4) Schizo affective schizophrenia Code(s): F25.0 - SCHIZOAFFECTIVE DISORDER, BIPOLAR TYPE (5) Anemia Code(s): D64.9 - ANEMIA, UNSPECIFIED Qualifiers: Anemia type: unspecified type Qualified Code(s): D64.9 - Anemia, unspecified (6) Demand ischemia Code(s): I24.8 - OTHER FORMS OF ACUTE ISCHEMIC HEART DISEASE Assessment/Plan 1. Acute hypoxic respiratory failure post mechanical ventilation now extubated and (+) Influenza B 2. Sepsis with multilobar pneumonia and sepsis 3. History of schiozoaffective disorder 4. MARVIN improving 5. Demand ischemia PLAN: 1. O2 via NC, BD as needed, and monitor O2 sat, replete K 2. Trend troponin to document peak 3. Antibiotic and Tamiflu coverage 4. Transthoracic echocardiography to assess LV/RV and valvular function 5. DVT and GI prophylaxis
--- NOTE | 2018-03-11 12:46 | PN ---
Progress Note (short form) - Note Progress Note: pt seen/ examimed in icu. awake. no distress but weak. speaks slowly. chart reviewed afebrile Vital Signs Temp 98 F 03/11/18 12:05 Pulse 59 L 03/11/18 12:05 Resp 15 03/11/18 12:05 BP 132/76 03/11/18 12:05 Pulse Ox 99 03/11/18 08:09 Intake & Output 03/10/18 03/11/18 03/11/18 23:59 11:59 23:59 Intake Total 1300 600 Output Total 2300 1500 1000 Balance -1000 -900 -1000 Weight 151 lb 12.8 oz Intake: IV 1200 600 D5-1/2Ns - 1,000 ml @ 75 1200 600 mls/hr IV ASDIR [facility] Rx#: [id number] IVPB 0 0 Tube Irrigant 100 Output: Urine 2300 1500 1000 [place] 2300 1500 1000 Other: Voiding Method Indwelling Catheter Indwelling Catheter Bowel Movement No Yes: medium # Bowel Movements 2 1 Weight Measurement Method Built in [facility] Active Medications Acetaminophen (Tylenol -) 650 mg PO Q4H PRN PRN Reason: FEVER Last Admin: 03/10/18 09:11 Dose: 650 mg Albuterol Sulfate (Ventolin 0.083% Nebulizer Soln -) 1 amp NEB Q4H PRN PRN Reason: SHORT OF BREATH/WHEEZING Aripiprazole (Abilify) 5 mg PO DAILY [facility] Last Admin: 03/11/18 09:24 Dose: 5 mg Bupropion HCl (Wellbutrin Xl -) 150 mg PO DAILY [facility] Chlorhexidine Gluconate (Hibiclens For Decolonization -) 1 applic TP HS [facility] Last Admin: 03/10/18 21:32 Dose: 1 applic Chlorhexidine Gluconate (Peridex -) 15 ml MM BID [facility] Last Admin: 03/11/18 09:27 Dose: 15 ml Enoxaparin Sodium (Lovenox -) 40 mg SQ DAILY [facility] Last Admin: 03/11/18 09:27 Dose: 40 mg Folic Acid (Folic Acid -) 1 mg PO DAILY [facility] Last Admin: 03/11/18 09:27 Dose: 1 mg Gabapentin (Neurontin -) 400 mg PO TID [facility] Last Admin: 03/11/18 05:54 Dose: 400 mg Piperacillin Sod/Tazobactam (Sod 2.25 gm/ Dextrose) 50 mls @ 100 mls/hr IVPB Q8H-IV [facility] PRN Reason: Protocol Last Admin: 03/11/18 09:26 Dose: 100 mls/hr Famotidine/Sodium Chloride (Pepcid 20 Mg Premixed Ivpb -) 20 mg in 50 mls @ 100 mls/hr IVPB DAILY [facility] Last Admin: 03/11/18 09:26 Dose: 100 mls/hr Dextrose/Sodium Chloride (D5-1/2ns -) 1,000 mls @ 75 mls/hr IV ASDIR [facility] Last Admin: 03/11/18 02:37 Dose: 75 mls/hr Mupirocin (Bactroban Ointment (For Decolonization) -) 1 applic NS BID [facility] Stop: 03/12/18 21:59 Last Admin: 03/11/18 09:24 Dose: 1 applic Oseltamivir Phosphate (Tamiflu -) 75 mg NGT BID [facility] Stop: 03/13/18 09:59 Last Admin: 03/11/18 09:25 Dose: 75 mg Valproate Sodium (Depakene -) 750 mg PO BID [facility] Last Admin: 03/11/18 09:24 Dose: 750 mg CBC, BMP 03/11/18 05:35 03/11/18 05:35 Microbiology 03/07/18 16:28 Blood Culture - Preliminary Blood - Peripheral Venous NO GROWTH OBTAINED AFTER 72 HOURS, INCUBATION TO CONTINUE FOR 2 DAYS. 03/07/18 16:28 Blood Culture - Preliminary Blood - Peripheral Venous NO GROWTH OBTAINED AFTER 72 HOURS, INCUBATION TO CONTINUE FOR 2 DAYS. 03/07/18 20:06 Urine Culture - Final Urine - Urine - Catheterized Pseudomonas Aeruginosa 03/07/18 20:05 Gram Stain - Final Sputum - Expectorated Sputum Culture - Final NORMAL RESPIRATORY [place] 03/07/18 20:06 Urine Culture - Final Urine - Urine [place] Pseudomonas Aeruginosa Physical Exam. Constitutional: Yes: No Distress but weak Cardiovascular: Yes: Regular Rate and Rhythm Respiratory: Yes: Diminished/ scattered rhonchi Gastrointestinal: Yes: Normal Bowel Sounds, Soft. No: Tenderness Edema: No Neuro- awake Problem List - Problems (1) Acute respiratory failure with hypoxia Code(s): J96.01 - ACUTE RESPIRATORY FAILURE WITH HYPOXIA (2) Anemia Code(s): D64.9 - ANEMIA, UNSPECIFIED Qualifiers: Anemia type: unspecified type Qualified Code(s): D64.9 - Anemia, unspecified (3) Influenza B Code(s): J10.1 - FLU DUE TO OTH IDENT INFLUENZA VIRUS W OTH RESP MANIFEST (4) Schizo affective schizophrenia Code(s): F25.0 - SCHIZOAFFECTIVE DISORDER, BIPOLAR TYPE Assessment/Plan still weak Monitor closely Continue with iv antibiotics continue with Tamiflu continue other meds discussed with icu attending will follow cc time 30 min.
--- NOTE | 2018-03-11 13:20 | PN ---
Teaching Attending Note Name of Resident: Erik Lees ATTENDING PHYSICIAN STATEMENT I saw and evaluated the patient. I reviewed the resident's note and discussed the case with the resident. I agree with the resident's findings and plan as documented. SUBJECTIVE: Patient seen and examined in the ICU. Remains extubated. Awake and alert and responsive. Some cough persists. Denies CP. CXR: some mild increase in Left effusion Intake & Output 03/08/18 03/09/18 03/10/18 03/11/18 23:59 23:59 23:59 23:59 Intake Total 2234 1001 2036 600 Output Total 1100 1200 2800 2500 Balance 1134 -199 -764 -1900 Weight 154 lb 5 oz 167 lb 1.6 oz 165 lb 6.4 oz 151 lb 12.8 oz Last Vital Signs Temp Pulse Resp BP Pulse Ox 98 F 59 L 15 132/76 99 03/11/18 12:05 03/11/18 12:05 03/11/18 12:05 03/11/18 12:05 03/11/18 08:09 Active Medications Acetaminophen (Tylenol -) 650 mg PO Q4H PRN PRN Reason: FEVER Last Admin: 03/10/18 09:11 Dose: 650 mg Albuterol Sulfate (Ventolin 0.083% Nebulizer Soln -) 1 amp NEB Q4H PRN PRN Reason: SHORT OF BREATH/WHEEZING Aripiprazole (Abilify) 5 mg PO DAILY [facility] Last Admin: 03/11/18 09:24 Dose: 5 mg Bupropion HCl (Wellbutrin Xl -) 150 mg PO DAILY [facility] Chlorhexidine Gluconate (Hibiclens For Decolonization -) 1 applic TP HS [facility] Last Admin: 03/10/18 21:32 Dose: 1 applic Chlorhexidine Gluconate (Peridex -) 15 ml MM BID [facility] Last Admin: 03/11/18 09:27 Dose: 15 ml Enoxaparin Sodium (Lovenox -) 40 mg SQ DAILY [facility] Last Admin: 03/11/18 09:27 Dose: 40 mg Folic Acid (Folic Acid -) 1 mg PO DAILY [facility] Last Admin: 03/11/18 09:27 Dose: 1 mg Gabapentin (Neurontin -) 400 mg PO TID [facility] Last Admin: 03/11/18 05:54 Dose: 400 mg Piperacillin Sod/Tazobactam (Sod 2.25 gm/ Dextrose) 50 mls @ 100 mls/hr IVPB Q8H-IV [facility] PRN Reason: Protocol Last Admin: 03/11/18 09:26 Dose: 100 mls/hr Famotidine/Sodium Chloride (Pepcid 20 Mg Premixed Ivpb -) 20 mg in 50 mls @ 100 mls/hr IVPB DAILY [facility] Last Admin: 03/11/18 09:26 Dose: 100 mls/hr Dextrose/Sodium Chloride (D5-1/2ns -) 1,000 mls @ 75 mls/hr IV ASDIR [facility] Last Admin: 03/11/18 02:37 Dose: 75 mls/hr Mupirocin (Bactroban Ointment (For Decolonization) -) 1 applic NS BID [facility] Stop: 03/12/18 21:59 Last Admin: 03/11/18 09:24 Dose: 1 applic Oseltamivir Phosphate (Tamiflu -) 75 mg NGT BID [facility] Stop: 03/13/18 09:59 Last Admin: 03/11/18 09:25 Dose: 75 mg Valproate Sodium (Depakene -) 750 mg PO BID [facility] Last Admin: 03/11/18 09:24 Dose: 750 mg Gen: Extubated, awake and alert, follows commands HEENT: PERRL, (-) JVP Pulm: Scattered rhonchi, no wheeze CV: RRR, (-) murmur ABD; soft, (+) BS, NT Ext: (+) PP Neuro: Awake and alert, non-focal Laboratory Results - last 24 hr 03/11/18 03/11/18 05:35 05:35 WBC 3.6 L RBC 3.40 L Hgb 11.6 L Hct 32.6 L MCV 96.1 H MCH 34.1 H MCHC 35.5 RDW 12.8 Plt Count 178 MPV 7.1 L Sodium 141 Potassium 3.4 L Chloride 103 Carbon Dioxide 32 Anion Gap 6 L BUN 6 L D Creatinine 0.5 L D Creat Clearance w eGFR > 60 Random Glucose 98 D Calcium 8.0 L Magnesium 1.8 Total Bilirubin 0.4 AST 21 ALT 9 L Alkaline Phosphatase 60 Troponin I 0.22 H D Total Protein 5.6 L Albumin 2.0 L Problem List - Problems (1) Sepsis Code(s): A41.9 - SEPSIS, UNSPECIFIED ORGANISM Qualifiers: Sepsis type: sepsis due to unspecified organism Qualified Code(s): A41.9 - Sepsis, unspecified organism (2) MARVIN (acute kidney injury) Code(s): N17.9 - ACUTE KIDNEY FAILURE, UNSPECIFIED (3) Pneumonia Code(s): J18.9 - PNEUMONIA, UNSPECIFIED ORGANISM Qualifiers: Laterality: bilateral Lung location: lower lobe of lung (4) Schizo affective schizophrenia Code(s): F25.0 - SCHIZOAFFECTIVE DISORDER, BIPOLAR TYPE (5) Anemia Code(s): D64.9 - ANEMIA, UNSPECIFIED Qualifiers: Anemia type: unspecified type Qualified Code(s): D64.9 - Anemia, unspecified (6) Demand ischemia Code(s): I24.8 - OTHER FORMS OF ACUTE ISCHEMIC HEART DISEASE IMP: Acute Respiratory Failure Multilobar PNA Influenza B (+) Sepsis UTI AMS Schizoaffective D/O MARVIN Demand ischemia PLAN: ABX per ID Tamiflu Lovenox BID PO as tolerated BD TX Cardiac Telemetry monitoring Dr Conley Critical care time spent in reviewing chart, evaluating patient and formulating plan - 36 minutes.
--- NOTE | 2018-03-11 14:39 | PN ---
Progress Note, Physician History of Present Illness: extubated stable improving - Current Medication List Current Medications: Active Medications Acetaminophen (Tylenol -) 650 mg PO Q4H PRN PRN Reason: FEVER Last Admin: 03/10/18 09:11 Dose: 650 mg Albuterol Sulfate (Ventolin 0.083% Nebulizer Soln -) 1 amp NEB Q4H PRN PRN Reason: SHORT OF BREATH/WHEEZING Aripiprazole (Abilify) 5 mg PO DAILY [facility] Last Admin: 03/11/18 09:24 Dose: 5 mg Bupropion HCl (Wellbutrin Xl -) 150 mg PO DAILY [facility] Last Admin: 03/11/18 13:28 Dose: 150 mg Chlorhexidine Gluconate (Hibiclens For Decolonization -) 1 applic TP HS [facility] Last Admin: 03/10/18 21:32 Dose: 1 applic Chlorhexidine Gluconate (Peridex -) 15 ml MM BID [facility] Last Admin: 03/11/18 09:27 Dose: 15 ml Enoxaparin Sodium (Lovenox -) 40 mg SQ DAILY [facility] Last Admin: 03/11/18 09:27 Dose: 40 mg Folic Acid (Folic Acid -) 1 mg PO DAILY [facility] Last Admin: 03/11/18 09:27 Dose: 1 mg Gabapentin (Neurontin -) 400 mg PO TID [facility] Last Admin: 03/11/18 13:32 Dose: 400 mg Piperacillin Sod/Tazobactam (Sod 2.25 gm/ Dextrose) 50 mls @ 100 mls/hr IVPB Q8H-IV [facility] PRN Reason: Protocol Last Admin: 03/11/18 09:26 Dose: 100 mls/hr Famotidine/Sodium Chloride (Pepcid 20 Mg Premixed Ivpb -) 20 mg in 50 mls @ 100 mls/hr IVPB DAILY [facility] Last Admin: 03/11/18 09:26 Dose: 100 mls/hr Dextrose/Sodium Chloride (D5-1/2ns -) 1,000 mls @ 75 mls/hr IV ASDIR [facility] Last Admin: 03/11/18 13:32 Dose: 75 mls/hr Mupirocin (Bactroban Ointment (For Decolonization) -) 1 applic NS BID [facility] Stop: 03/12/18 21:59 Last Admin: 03/11/18 09:24 Dose: 1 applic Oseltamivir Phosphate (Tamiflu -) 75 mg NGT BID [facility] Stop: 03/13/18 09:59 Last Admin: 03/11/18 09:25 Dose: 75 mg Valproate Sodium (Depakene -) 750 mg PO BID [facility] Last Admin: 03/11/18 09:24 Dose: 750 mg - Objective Vital Signs: Vital Signs Temperature 97.8 F 03/11/18 14:35 Pulse Rate 54 L 03/11/18 14:35 Respiratory Rate 15 03/11/18 14:35 Blood Pressure 123/83 03/11/18 14:35 O2 Sat by Pulse Oximetry (%) 99 03/11/18 08:09 Constitutional: Yes: No Distress, Calm Cardiovascular: Yes: Regular Rate and Rhythm Respiratory: Yes: Regular, On Nasal O2, Poor Air Entry, Rhonchi Gastrointestinal: Yes: Normal Bowel Sounds, Soft Musculoskeletal: Yes: WNL Extremities: Yes: WNL Neurological: Yes: Alert Psychiatric: Yes: Alert Labs: CBC, BMP 03/11/18 05:35 03/11/18 05:35 INR, PTT INR 1.11 (0.82-1.09) 03/07/18 16:28 Assessment/Plan Problem List - Problems (1) Sepsis Code(s): A41.9 - SEPSIS, UNSPECIFIED ORGANISM Qualifiers: Sepsis type: sepsis due to unspecified organism Qualified Code(s): A41.9 - Sepsis, unspecified organism (2) MARVIN (acute kidney injury) Code(s): N17.9 - ACUTE KIDNEY FAILURE, UNSPECIFIED (3) Pneumonia Code(s): J18.9 - PNEUMONIA, UNSPECIFIED ORGANISM Qualifiers: Laterality: bilateral Lung location: lower lobe of lung (4) Schizo affective schizophrenia Code(s): F25.0 - SCHIZOAFFECTIVE DISORDER, BIPOLAR TYPE (5) Anemia Code(s): D64.9 - ANEMIA, UNSPECIFIED Qualifiers: Anemia type: unspecified type Qualified Code(s): D64.9 - Anemia, unspecified (6) Demand ischemia Code(s): I24.8 - OTHER FORMS OF ACUTE ISCHEMIC HEART DISEASE IMP: Acute Respiratory Failure Multilobar PNA Influenza B (+) Sepsis UTI AMS Schizoaffective D/O MARVIN plan continue current mgmt continue abx continue resp support patient stable improving cx results noted cc 40 min
--- NOTE | 2018-03-11 18:25 | EKG ---
Test Reason : Blood Pressure : / mmHG Vent. Rate : 056 BPM Atrial Rate : 056 BPM P-R Int : 136 ms QRS Dur : 084 ms QT Int : 438 ms P-R-T Axes : 045 -13 010 degrees QTc Int : 422 ms SINUS BRADYCARDIA BORDERLINE ECG WHEN COMPARED WITH ECG OF 07-MAR-2018 17:44, VENT. RATE HAS DECREASED BY 27 BPM T WAVE VARIATION Confirmed by CLAUDIA NOVA MD ([id number]) on 03/11/2018 6:25:16 PM Referred By: Confirmed By:CLAUDIA NOVA MD
--- NOTE | 2018-03-11 18:32 | CONSULT ---
Admitting History and Physical - Past Medical History Cardiovascular: Yes: CHF, HTN Psych: Yes: Bipolar, Schizophrenia - Past Surgical History Past Surgical History: Yes: TURP - Advance Directives Advance Directives: Yes: MOLST - Smoking History Smoking history: Unknown if ever smoked Have you smoked in the past 12 months: No - Alcohol/Substance Use Hx Alcohol Use: No - Social History ADL: Independent History - Admission Reason For Visit: SEPTIC SHOCK - Hearing Hearing: Normal Hearing Aide: No Speech Evaluation - Communication Primary Language: MACEDONIAN Communication: Yes: Simple Responses, Dysarthria Oral Expression Ability: Yes: No Impairment - Speech Production Dysarthria: Yes: Ataxic Apraxia: No Able to Make Needs Known: Yes: WNL Intelligibility: Yes: WNL - Speech Characteristics Voice Loudness: Normal Voice Pitch: Yes: Normal Voice Phonatory-based Quality: Yes: Normal Speech Pattern: Normal Nasal Resonance: Normal Articulation: Yes: Precise Rate of Speech: Intact Voice Comment: Vocal quality and airway protection is WFL - Language/Auditory Comprehension Follows: Yes: 1 Stage Simple Commands, 2 Stage Simple Commands (WFL) Observation: Able to respond to yes/no queries: Yes, Yes/No Confusion: Yes (at times), Comprehends Conversational Speech: Yes, Benefits from Slow Speech: Yes, Benefits from Repetiton: No, Benefits from Increased Volume of Speech: No - Language/Verbal Expression Able to Respond to Simple Queries: Yes: WNL Able to Communicate Wants and Needs: Yes: WNL Functional Communication Status: Yes: WNL Aware of Errors: Yes Attempts to Correct Errors: Yes Use of Gestures: No Written Expression: not examined Oral Expression: WFL Reading Comprehension: not examined Calculations: not examined Attention: Yes: Intact - Memory/Perception terminal system operator Memory: Yes: WNL Short Term Memory: Yes: WNL - Swallow Evaluation/Bedside Assessment Current Nutritional Intake: NPO (recently extubated) Tracheostomy Present: No Patient on Ventilator: No Dentition: Yes: Adequate Facial Symmetry at Rest: Symmetrical Facial Symmetry on Retraction: Symmetrical Facial Movement: Controlled Sensation: Normal Facial Comment: WFL for speech and swallowing purposes Jaw Position: Closed at Rest Against Resistance Opening: Normal Against Resistance Closing: Normal Pucker Lips: Weak Smile: Weak Lips, Comment: Some weakness observed but WFL for speech and swallowing Lingual Movement: Normal Lingual Speed of Movement: Normal Lingual Movement Strgth Against Opposition: Normal Lingual Movement Characteristics: Normal Soft Palate Description: Normal Color, Normal Arch Hard Palate Description: Normal Color, Normal Arch Gag Reflex: Strong Bite Reflex: Present Velopharyngeal Movement: Normal Laryngeal Elevation: WFL Laryngeal Movement: Able to Palpate Needs Assistance: Yes Rate of Intake: WFL Bolus Size: WFL Sensation: Bite Reflex Labial Seal: WFL Chewing: Impaired (needs extra time to form bolus.) Oral Prep Time: WFL A-P Transit: WFL Odynophagia: Oral Coughing/Throat Clear: No Change in Voice: No Other Findings/Remarks: 73 yo male seen at bedside for swallow eval to r/o dysphagia. Pt is verbal A& Ox2 cooperative. Vocal quality and airway protection is adequate. MHX includes AKF schizophrenia, anemia and possible recent PNA. Current diet NPO. Nasal cannula is use. Pt given po trials of puree and soft solids with total assistance (ataxic-like movements of his extremities) revealed good acceptance, bolus formation is delayed, pharyngeal swallows appears timely. No cough or changes in voicing and respiration after the swallow. Pt given po trials of thick and thin liquids via with total assistance spoon and cup were unremarkable for aspiration at this time. Recommendations - Speech Evaluation, Impression/Plan Impression: Pt present with moderate oral preparation dysphagia and oral phase dysphagia for solids and liquids Pharyngeal swallow appears timely. Pt is able to tolerate purees, mech soft and small sips or thin liquids without s/s of aspiration at this time. Back Tender Cylinder Goals: tolerate the least restrictive diet without s/s of aspiration. Short Term Goals: tolerate puree / mech soft with thin liquids without s/s of aspiration. - Dysphagia Impressions/Plan Swallowing Skills: Impaired Dysphagia Impressions: Risk of Aspiration, Suspect Aspiration *Silent aspiration: cannot be R/O at bedside Dysphagia Treatment Plan: Trial Feedings (mech soft with thin liquids as tolerated.), Safe Rate, 1/2 tsp. at a time, Elevate HOB during feed Dysphagia Evaluation Summary: Trial mech soft with thin liquids as tolerated. Observe standard aspiration precautions. Monitor nutritional intake and pulmonary status. Crush meds in puree for ease of swallow and safety. Results given verbally to chargemaster analyst Samuel and to pcp via chart. SALES PROGRAM MANAGER to follow up for diet tolerance and possible upgrade. - Recommendations Diet Consistency: Mechanical Soft Medication Administration: Crushed with applesauce Liquids: Thin Liquids (small sips of thin liquids with total assistance.)
[2018-03-11] MEDS ORDERED: ACETAMINOPHEN 1000 MG/100 ML VIAL (NON FORMULARY) IVPB ONE (19:53)
[2018-03-11] MEDS ORDERED: ACETAMINOPHEN 325 MG TABLET (FP) PO PRN (19:53)
[2018-03-11] MEDS ORDERED: ALBUTEROL SO4 0.083% IH SOL 2.5 MG/3 ML VIAL.NEB. NEB PRN (19:53)
[2018-03-11] MEDS: CHLORHEXIDINE GLUCONATE 4% CLEANSER FOR DECOLONIZATION TP SCH (21:32)
[2018-03-11] MEDS ORDERED: CHLORHEXIDINE GLUCONATE 0.12% 15ML CUP MM SCH (22:00)
[2018-03-12] MEDS ORDERED: DEXTROSE 5%-WATER - 50 ML IVPB ONE ×3 (01:12→17:03)
[2018-03-12] MEDS ORDERED: PIPERACILLIN/TAZOBACTAM 2.25 GM VIAL IVPB ONE ×3 (01:12→17:03)
[2018-03-12] MEDS: PIPERACILLIN/TAZOB 2.25 GM 2.25 GM in DEXTROSE 5%-WATER - 50 ML IVPB SCH ×3 (01:19→17:06)
[2018-03-12] MEDS: GABAPENTIN 400 MG CAPSULE (FP) PO SCH ×3 (05:56→21:08)
[2018-03-12 06:29] LABS: BASO % 0.4 % (0-2.0); EOS % 3.4 % (0-4.5); HEMOGLOBIN 10.7 GM/dL (11.7-16.9); LYMPH % 35.9 % (8-40); MCH 34.3 pg (25.7-33.7); MCHC 35.6 g/dl (32.0-35.9); MEAN CELL VOLUME 96.1 fl (80-96); MONO % 10.5 % (3.8-10.2); NEUT % 49.8 % (42.8-82.8); PLATELET COUNT 179 K/MM3 (134-434); RBC 3.12 M/mm3 (4.00-5.60); RDW 12.6 % (11.9-15.9); WHITE BLOOD COUNT 3.5 K/mm3 (4.0-10.0)
--- NOTE | 2018-03-12 06:41 | PN ---
Progress Note (short form) - Note Progress Note: Chief Complaint: Events noted, notes reviewed, awake and alert, denies any chest pain or dyspnea, sinus rhythm with sinus bradycardia and PVC's noted History of Present Illness: Seen and examined in the ICU. Events noted, notes reviewed, awake and alert, denies any chest pain or dyspnea, sinus rhythm with sinus bradycardia and PVC's noted Echocardiography revealed normal LV size and function with LV EF of 55-60%, trace to mild MR and TR - Current Medication List Current Medications: Current Medications Acetaminophen (Tylenol -) 650 mg PO Q4H PRN PRN Reason: FEVER Albuterol Sulfate (Ventolin 0.083% Nebulizer Soln -) 1 amp NEB Q4H PRN PRN Reason: SHORT OF BREATH/WHEEZING Aripiprazole (Abilify) 5 mg PO DAILY [facility] Bupropion HCl (Wellbutrin Xl -) 150 mg PO DAILY [facility] Chlorhexidine Gluconate (Hibiclens For Decolonization -) 1 applic TP HS [facility] Last Admin: 03/11/18 21:32 Dose: 1 applic Enoxaparin Sodium (Lovenox -) 40 mg SQ DAILY [facility] Folic Acid (Folic Acid -) 1 mg PO DAILY [facility] Gabapentin (Neurontin -) 400 mg PO TID [facility] Last Admin: 03/12/18 05:56 Dose: 400 mg Dextrose/Sodium Chloride (D5-1/2ns -) 1,000 mls @ 75 mls/hr IV ASDIR [facility] Last Admin: 03/11/18 19:30 Dose: 75 mls/hr Famotidine/Sodium Chloride (Pepcid 20 Mg Premixed Ivpb -) 20 mg in 50 mls @ 100 mls/hr IVPB DAILY [facility] Piperacillin Sod/Tazobactam (Sod 2.25 gm/ Dextrose) 50 mls @ 100 mls/hr IVPB Q8H-IV [facility] PRN Reason: Protocol Last Admin: 03/12/18 01:19 Dose: 100 mls/hr Mupirocin (Bactroban Ointment (For Decolonization) -) 1 applic NS BID [facility] Stop: 03/12/18 21:59 Last Admin: 03/11/18 21:33 Dose: 1 applic Oseltamivir Phosphate (Tamiflu -) 75 mg NGT BID [facility] Stop: 03/13/18 09:59 Last Admin: 03/11/18 21:31 Dose: 75 mg Valproate Sodium (Depakene -) 750 mg PO BID [facility] Last Admin: 03/11/18 21:31 Dose: 750 mg Review of Systems: Constitutional: Denies fever or chills Head and Neck: Denies Headaches, photophobia or blurring of vision Respiratory: Denies cough or sputum production Cardiovascular: As noted above Gastrointestinal: Denies nausea, vomiting, diarrhea or abdominal discomfort Genitourinary: Denies frequency or Urgency Musculoskeletal: No symptoms reported Endocrine: No symptoms reported - Objective Vital Signs: Last Vital Signs Temp Pulse Resp BP Pulse Ox 97.6 F 51 L 11 L 109/86 100 03/12/18 06:00 03/12/18 06:00 03/12/18 06:00 03/12/18 06:00 03/11/18 20:51 Constitutional: No Distress, Calm Neck: Supple Negative JVD No Bruit Cardiovascular: S1 S2 Regular Rate and Rhythm Respiratory: Diminished Breath Sounds at the Bases Gastrointestinal: Soft Benign Normal Bowel Sounds Ext: No Edema Labs: CBC, BMP 03/12/18 06:05 03/12/18 06:05 Troponin, BNP 03/11/18 03/11/18 05:35 19:00 Troponin I 0.22 H D 0.15 H D Assessment/Plan ASSESSMENT: 1. Post acute hypoxic respiratory failure post mechanical ventilation/extubated 2. Influenza B 3. Multi-lobar pneumonia with sepsis syndrome, resolving 4. CAD with evidence of demand ischemic injury 5. Sinus bradycardia asymptomatic 6. History of schiozo-affective disorder 7. MARVIN resolved 8. Neutropenia and anemia 9. Hypokalemia PLAN: 1. Add ASA unless contraindicated 2. Recommend low dose B-Blockers unless contraindicated, with caution considering the above noted bradycardia 3. Monitor Hg and maintain equal or > 8.0 4. Correction of Hypokalemia Brodie Culp MD
[2018-03-12 06:47] LABS: ALBUMIN 1.8 g/dl (3.4-5.0); ANION GAP 6 (8-16); BILIRUBIN,TOTAL 0.2 mg/dL (0.2-1.0); BLOOD UREA NITROGEN 6 mg/dL (7-18); CALCIUM 7.5 mg/dL (8.5-10.1); CHLORIDE 107 mmol/L (98-107); CO2 30 mmol/L (21-32); CREATININE 0.4 mg/dL (0.7-1.3); GLUCOSE,RANDOM 94 mg/dL (74-106); MAGNESIUM 1.8 mg/dL (1.8-2.4); POTASSIUM 3.2 mmol/L (3.5-5.1); SGOT/AST 18 U/L (15-37); SGPT/ALT 9 U/L (12-78); SODIUM 143 mmol/L (136-145); TOT PROT 5.1 g/dl (6.4-8.2)
[2018-03-12 06:48] LABS: ALK PHOS 54 U/L (45-117)
[2018-03-12] MEDS ORDERED: PT OWN MED DRAWER 7, Y5N ONE (09:20)
--- NOTE | 2018-03-12 10:27 | PN ---
Progress Note, COLOR GRINDER - Note Progress Note: Selected Entries 03/11/18 03/11/18 03/11/18 02:00 06:00 12:05 Breakfast Temperature 98.4 F 98.7 F 98 F 03/11/18 03/11/18 03/11/18 14:35 20:00 22:00 Breakfast Temperature 97.8 F 98.7 F 98.6 F 03/12/18 03/12/18 03/12/18 02:00 05:42 06:00 Breakfast NPO Temperature 97.5 F L 97.6 F 03/12/18 03/12/18 09:22 10:00 Breakfast 100% Temperature 97.8 F Soft and thin liquid ordered. No signs or symptoms of dysphagia reported. Mastication is reduced in rate. Swallow is delayed with mildly reduced VOM/ROM. No cough response. Voice mildly dysphonic . Monitor tolerance.
[2018-03-12] MEDS: ARIPiprazole 5 MG TABLET (FP) PO SCH (10:32)
--- NOTE | 2018-03-12 10:32 | PN ---
Progress Note, Physician Chief Complaint: no distress feels well has a good appetite was bradycardia overnight per RN - Current Medication List Current Medications: Active Medications Acetaminophen (Tylenol -) 650 mg PO Q4H PRN PRN Reason: FEVER Albuterol Sulfate (Ventolin 0.083% Nebulizer Soln -) 1 amp NEB Q4H PRN PRN Reason: SHORT OF BREATH/WHEEZING Aripiprazole (Abilify) 5 mg PO DAILY [facility] Aspirin (Ecotrin -) 81 mg PO DAILY [facility] Bupropion HCl (Wellbutrin Xl -) 150 mg PO DAILY [facility] Chlorhexidine Gluconate (Hibiclens For Decolonization -) 1 applic TP HS [facility] Last Admin: 03/11/18 21:32 Dose: 1 applic Enoxaparin Sodium (Lovenox -) 40 mg SQ DAILY [facility] Folic Acid (Folic Acid -) 1 mg PO DAILY [facility] Gabapentin (Neurontin -) 400 mg PO TID [facility] Last Admin: 03/12/18 05:56 Dose: 400 mg Dextrose/Sodium Chloride (D5-1/2ns -) 1,000 mls @ 75 mls/hr IV ASDIR [facility] Last Admin: 03/11/18 19:30 Dose: 75 mls/hr Famotidine/Sodium Chloride (Pepcid 20 Mg Premixed Ivpb -) 20 mg in 50 mls @ 100 mls/hr IVPB DAILY [facility] Piperacillin Sod/Tazobactam (Sod 2.25 gm/ Dextrose) 50 mls @ 100 mls/hr IVPB Q8H-IV [facility] PRN Reason: Protocol Last Admin: 03/12/18 01:19 Dose: 100 mls/hr Potassium Chloride (Potassium Chloride 10 Meq Premix Ivpb -) 10 meq in 100 mls @ 100 mls/hr IVPB Q60M [facility] Stop: 03/12/18 10:59 Metoprolol Succinate (Toprol Xl -) 12.5 mg PO DAILY [facility] Mupirocin (Bactroban Ointment (For Decolonization) -) 1 applic NS BID [facility] Stop: 03/12/18 21:59 Last Admin: 03/11/18 21:33 Dose: 1 applic Oseltamivir Phosphate (Tamiflu -) 75 mg NGT BID [facility] Stop: 03/13/18 09:59 Last Admin: 03/11/18 21:31 Dose: 75 mg Senna (Senna -) 1 tab PO BID [facility] Valproate Sodium (Depakene -) 750 mg PO BID [facility] Last Admin: 03/11/18 21:31 Dose: 750 mg - Objective Vital Signs: Vital Signs Temperature 97.8 F 03/12/18 10:00 Pulse Rate 60 03/12/18 10:00 Respiratory Rate 11 L 03/12/18 10:00 Blood Pressure 131/81 03/12/18 10:00 O2 Sat by Pulse Oximetry (%) 100 03/11/18 20:51 Constitutional: Yes: No Distress Cardiovascular: Yes: Regular Rate and Rhythm Respiratory: Yes: Diminished Gastrointestinal: Yes: Normal Bowel Sounds, Soft. No: Tenderness Edema: No Labs: CBC, BMP 03/12/18 06:05 03/12/18 06:05 INR, PTT INR 1.11 (0.82-1.09) 03/07/18 16:28 Problem List - Problems (1) MARVIN (acute kidney injury) Code(s): N17.9 - ACUTE KIDNEY FAILURE, UNSPECIFIED (2) Acute respiratory failure with hypoxia Code(s): J96.01 - ACUTE RESPIRATORY FAILURE WITH HYPOXIA (3) Anemia Code(s): D64.9 - ANEMIA, UNSPECIFIED Qualifiers: Anemia type: unspecified type Qualified Code(s): D64.9 - Anemia, unspecified (4) Demand ischemia Code(s): I24.8 - OTHER FORMS OF ACUTE ISCHEMIC HEART DISEASE (5) Influenza B Code(s): J10.1 - FLU DUE TO OTH IDENT INFLUENZA VIRUS W OTH RESP MANIFEST (6) Pneumonia Code(s): J18.9 - PNEUMONIA, UNSPECIFIED ORGANISM Qualifiers: Laterality: bilateral Lung location: lower lobe of lung (7) Schizo affective schizophrenia Code(s): F25.0 - SCHIZOAFFECTIVE DISORDER, BIPOLAR TYPE (8) Sepsis Code(s): A41.9 - SEPSIS, UNSPECIFIED ORGANISM Qualifiers: Sepsis type: sepsis due to unspecified organism Qualified Code(s): A41.9 - Sepsis, unspecified organism Assessment/Plan PLAN Continue with iv antibiotics complete with Tamiflu troponins elevated due to sepsis pt clinically improving Lovenox for DVT prophylaxis will need physical therapy ok for transfer to [facility] replace potassium jose lopez
[2018-03-12] MEDS: ENOXAPARIN NA (PORCINE) 40 MG/0.4 ML DISP.SYRIN SQ SCH (10:33)
[2018-03-12] MEDS: metoPROLOL SUCCINATE 25 MG TAB.SR.24H (FP) PO SCH (10:33)
[2018-03-12] MEDS: SENNOSIDES 8.6MG TABLET (FP) PO SCH ×2 (10:33→21:08)
[2018-03-12] MEDS: FOLIC ACID 1 MG TABLET (FP) PO SCH (10:33)
[2018-03-12] MEDS: VALPROATE SODIUM 250 MG/5 ML UNIT DOSE CUP PO SCH ×2 (10:34→21:09)
[2018-03-12] MEDS: ASPIRIN COATED 81 MG TABLET.EC PO SCH (10:34)
[2018-03-12] MEDS: OSELTAMIVIR PHOSPHATE 75 MG CAPSULE NGT SCH ×2 (10:36→21:10)
[2018-03-12] MEDS: MUPIROCIN 2% TOPICAL OINTMENT FOR DECOLONIZATION NS SCH (10:37)
[2018-03-12] MEDS: FAMOTIDINE 20 MG/50 ML IVPB 20 MG/50 ML MG IVPB SCH (10:37)
[2018-03-12] MEDS: KCL 10 MEQ IVPB 10 MEQ/100 ML INFUS.BAG IVPB SCH ×2 (10:39→14:52)
[2018-03-12] MEDS ORDERED: POTASSIUM CHLORIDE TABS 20 MEQ TABLET.ER (FP) PO ONE (11:15)
--- NOTE | 2018-03-12 11:38 | PN ---
Physical Exam: SUBJECTIVE: Patient awake, alert. Notes last BM two days previous. Denies any chest pain, shortness of breath, abdominal pain, nausea/vomiting. OBJECTIVE: Vital Signs Period Temp Pulse Resp BP Sys/[place] Pulse Ox Last 24 Hr 97.5 F-98.7 F 45-60 10-15 83-132/54-86 100-100 GENERAL: male, on 2L NC, A&O x2 (self and place) CV: S1/S2, RRR, no M/R/G Resp: bibasilar wheezes Abdomen: soft, non-tender, (+) bowel sounds Neuro: A&O x2 (self and place), alert, responsive Extremities: 2+ DP pulses, no edema, cords Laboratory Results - last 24 hr 03/11/18 03/12/18 03/12/18 19:00 06:05 06:05 WBC 3.5 L RBC 3.12 L Hgb 10.7 L Hct 30.0 L MCV 96.1 H MCH 34.3 H MCHC 35.6 RDW 12.6 Plt Count 179 MPV 7.0 L Neutrophils % 49.8 D Lymphocytes % 35.9 D Monocytes % 10.5 H Eosinophils % 3.4 D Basophils % 0.4 D Sodium 143 Potassium 3.2 L Chloride 107 Carbon Dioxide 30 Anion Gap 6 L BUN 6 L Creatinine 0.4 L Creat Clearance w eGFR > 60 Random Glucose 94 Calcium 7.5 L Phosphorus 3.0 D Magnesium 1.8 Total Bilirubin 0.2 D AST 18 ALT 9 L Alkaline Phosphatase 54 Troponin I 0.15 H D Total Protein 5.1 L Albumin 1.8 L Active Medications Generic Name Dose Route Start Last Admin Trade Name Freq PRN Reason Stop Dose Admin Acetaminophen 650 mg 03/11/18 19:53 Tylenol - PO Q4H PRN FEVER Albuterol Sulfate 1 amp 03/11/18 19:53 Ventolin 0.083% Nebulizer Soln - NEB Q4H PRN SHORT OF BREATH/WHEEZING Aripiprazole 5 mg 03/12/18 10:00 03/12/18 10:32 Abilify PO 5 mg DAILY [facility] Administration Aspirin 81 mg 03/12/18 10:00 03/12/18 10:34 Ecotrin - PO 81 mg DAILY [facility] Administration Bupropion HCl 150 mg 03/12/18 10:00 03/12/18 10:36 Wellbutrin Xl - PO 150 mg DAILY [facility] Administration Chlorhexidine Gluconate 1 applic 03/11/18 22:00 03/11/18 21:32 Hibiclens For Decolonization - TP 1 applic HS [facility] Administration Enoxaparin Sodium 40 mg 03/12/18 10:00 03/12/18 10:33 Lovenox - SQ 40 mg DAILY [facility] Administration Folic Acid 1 mg 03/12/18 10:00 03/12/18 10:33 Folic Acid - PO 1 mg DAILY [facility] Administration Gabapentin 400 mg 03/11/18 22:00 03/12/18 05:56 Neurontin - PO 400 mg TID [facility] Administration Dextrose/Sodium Chloride 1,000 mls @ 75 mls/hr 03/11/18 19:53 03/11/18 19:30 D5-1/2ns - IV 75 mls/hr ASDIR [facility] Administration Famotidine/Sodium Chloride 20 mg in 50 mls @ 100 mls/hr 03/12/18 10:00 10:37 Pepcid 20 Mg Premixed Ivpb - IVPB 100 mls/hr DAILY [facility] Administration Piperacillin Sod/Tazobactam 50 mls @ 100 mls/hr 03/12/18 02:00 03/12/18 10:43 Sod 2.25 gm/ Dextrose IVPB 100 mls/hr Q8H-IV [facility] Administration Protocol Metoprolol Succinate 12.5 mg 03/12/18 10:00 03/12/18 10:33 Toprol Xl - PO 12.5 mg DAILY [facility] Administration Mupirocin 1 applic 03/11/18 22:00 03/12/18 10:37 Bactroban Ointment (For Decolonization) - NS 03/12/18 21:59 1 applic BID [facility] Administration Oseltamivir Phosphate 75 mg 03/11/18 22:00 03/12/18 10:36 Tamiflu - NGT 03/13/18 09:59 75 mg BID [facility] Administration Potassium Chloride 40 meq 03/12/18 11:15 K-Dur - PO 03/12/18 11:16 ONCE ONE Senna 1 tab 03/12/18 10:00 03/12/18 10:33 Senna - PO 1 tab BID [facility] Administration Valproate Sodium 750 mg 03/11/18 22:00 03/12/18 10:34 Depakene - PO 750 mg BID [facility] Administration ASSESSMENT/PLAN: Patient is a 73 year old male with a PMH of CHF, HTN, TURP, BPD, schizophrenia who presented to our facility on 03/07 from assisted living facility w/ hypotension and fever. Admitted to ICU for sepsis - presumptive source UTI / Pseudomonas vs. Influenza B SEPSIS - Source either UTI vs. Influenza B - Afebrile, no leukocytosis - Urine culture showed pseudomonas - Continue Zosyn, Tamiflu - D5-12 NS @ 75 - ID following, appreciate recs - Droplet precautions CV #HTN -home meds held currently 12/07 to h/o hypotension, 130/80 today (03/12) - monitor and consider restarting home meds #CHF -pt not in fluid overload state HEMATOLOGY #Anemia - Hb 10.6 today (03/12) <-- 11.6 - Continue to trend w/daily H/H RENAL #MARVIN -resolved, creatinine of 0.4 today (03/12) <--0.5 yesterday (03/11); 1.6 @ presentation on 03/07 RESPIRATORY #acute hypoxic respiratory failure -extubated on 03/10, satting well on NC -albuterol nebs PRN GI # Constipation - Last reported BM 2 days previous - On Colace, will increase bowel regimen add Senna PSYCH #schizophrenia and bipolar -continue home meds including neurontin, valproic acid, and bupropion FEN/PPZ -D5-1/2NS @ 75 -K repleted (3.2 today 03/12) - repeat BMP pending -diet pending S&S recs -pepcid for GI ppx -lovenox 40 Dispo -stable for transfer to telemetry; awaiting bed -PT eval Visit type - Emergency Visit Emergency Visit: No - New Patient This patient is new to me today: Yes Date on this admission: 03/12/18 - Critical Care Critical Care patient: No
--- NOTE | 2018-03-12 13:19 | PN ---
Teaching Attending Note Name of Resident: Zoie Milian ATTENDING PHYSICIAN STATEMENT I saw and evaluated the patient. I reviewed the resident's note and discussed the case with the resident. I agree with the resident's findings and plan as documented. SUBJECTIVE: Patient seen and examined in the ICU. Remains extubated. Awake and alert and responsive. Some cough persists. Denies CP. CXR: some mild increase in Left effusion Intake & Output 03/09/18 03/10/18 03/11/18 03/12/18 23:59 23:59 23:59 23:59 Intake Total 1001 2036 2000 890 Output Total 1200 2800 4200 500 Balance -199 -764 -2200 390 Weight 167 lb 1.6 oz 165 lb 6.4 oz 151 lb 12.8 oz 152 lb 9.6 oz Last Vital Signs Temp Pulse Resp BP Pulse Ox 97.8 F 64 11 L 135/83 100 03/12/18 10:00 03/12/18 12:00 03/12/18 12:00 03/12/18 12:00 03/11/18 20:51 Active Medications Acetaminophen (Tylenol -) 650 mg PO Q4H PRN PRN Reason: FEVER Albuterol Sulfate (Ventolin 0.083% Nebulizer Soln -) 1 amp NEB Q4H PRN PRN Reason: SHORT OF BREATH/WHEEZING Aripiprazole (Abilify) 5 mg PO DAILY [facility] Last Admin: 03/12/18 10:32 Dose: 5 mg Aspirin (Ecotrin -) 81 mg PO DAILY [facility] Last Admin: 03/12/18 10:34 Dose: 81 mg Bupropion HCl (Wellbutrin Xl -) 150 mg PO DAILY [facility] Last Admin: 03/12/18 10:36 Dose: 150 mg Chlorhexidine Gluconate (Hibiclens For Decolonization -) 1 applic TP HS [facility] Last Admin: 03/11/18 21:32 Dose: 1 applic Enoxaparin Sodium (Lovenox -) 40 mg SQ DAILY [facility] Last Admin: 03/12/18 10:33 Dose: 40 mg Folic Acid (Folic Acid -) 1 mg PO DAILY [facility] Last Admin: 03/12/18 10:33 Dose: 1 mg Gabapentin (Neurontin -) 400 mg PO TID [facility] Last Admin: 03/12/18 05:56 Dose: 400 mg Dextrose/Sodium Chloride (D5-1/2ns -) 1,000 mls @ 75 mls/hr IV ASDIR [facility] Last Admin: 03/11/18 19:30 Dose: 75 mls/hr Famotidine/Sodium Chloride (Pepcid 20 Mg Premixed Ivpb -) 20 mg in 50 mls @ 100 mls/hr IVPB DAILY [facility] Last Admin: 03/12/18 10:37 Dose: 100 mls/hr Piperacillin Sod/Tazobactam (Sod 2.25 gm/ Dextrose) 50 mls @ 100 mls/hr IVPB Q8H-IV [facility] PRN Reason: Protocol Last Admin: 03/12/18 10:43 Dose: 100 mls/hr Metoprolol Succinate (Toprol Xl -) 12.5 mg PO DAILY [facility] Last Admin: 03/12/18 10:33 Dose: 12.5 mg Mupirocin (Bactroban Ointment (For Decolonization) -) 1 applic NS BID [facility] Stop: 03/12/18 21:59 Last Admin: 03/12/18 10:37 Dose: 1 applic Oseltamivir Phosphate (Tamiflu -) 75 mg NGT BID [facility] Stop: 03/13/18 09:59 Last Admin: 03/12/18 10:36 Dose: 75 mg Senna (Senna -) 1 tab PO BID [facility] Last Admin: 03/12/18 10:33 Dose: 1 tab Valproate Sodium (Depakene -) 750 mg PO BID [facility] Last Admin: 03/12/18 10:34 Dose: 750 mg Gen: Extubated, awake and alert, follows commands HEENT: PERRL, (-) JVP Pulm: Scattered rhonchi, no wheeze CV: RRR, (-) murmur ABD; soft, (+) BS, NT Ext: (+) PP Neuro: Awake and alert, non-focal Laboratory Results - last 24 hr 03/11/18 03/12/18 03/12/18 19:00 06:05 06:05 WBC 3.5 L RBC 3.12 L Hgb 10.7 L Hct 30.0 L MCV 96.1 H MCH 34.3 H MCHC 35.6 RDW 12.6 Plt Count 179 MPV 7.0 L Neutrophils % 49.8 D Lymphocytes % 35.9 D Monocytes % 10.5 H Eosinophils % 3.4 D Basophils % 0.4 D Sodium 143 Potassium 3.2 L Chloride 107 Carbon Dioxide 30 Anion Gap 6 L BUN 6 L Creatinine 0.4 L Creat Clearance w eGFR > 60 Random Glucose 94 Calcium 7.5 L Phosphorus 3.0 D Magnesium 1.8 Total Bilirubin 0.2 D AST 18 ALT 9 L Alkaline Phosphatase 54 Troponin I 0.15 H D Total Protein 5.1 L Albumin 1.8 L Problem List - Problems (1) Sepsis Code(s): A41.9 - SEPSIS, UNSPECIFIED ORGANISM Qualifiers: Sepsis type: sepsis due to unspecified organism Qualified Code(s): A41.9 - Sepsis, unspecified organism (2) MARVIN (acute kidney injury) Code(s): N17.9 - ACUTE KIDNEY FAILURE, UNSPECIFIED (3) Pneumonia Code(s): J18.9 - PNEUMONIA, UNSPECIFIED ORGANISM Qualifiers: Laterality: bilateral Lung location: lower lobe of lung (4) Schizo affective schizophrenia Code(s): F25.0 - SCHIZOAFFECTIVE DISORDER, BIPOLAR TYPE (5) Anemia Code(s): D64.9 - ANEMIA, UNSPECIFIED Qualifiers: Anemia type: unspecified type Qualified Code(s): D64.9 - Anemia, unspecified (6) Demand ischemia Code(s): I24.8 - OTHER FORMS OF ACUTE ISCHEMIC HEART DISEASE IMP: Acute Respiratory Failure Multilobar PNA Influenza B (+) Sepsis UTI AMS Schizoaffective D/O MARVIN Demand ischemia PLAN: ABX per ID Tamiflu Lovenox BID PO as tolerated BD TX Cardiac Telemetry monitoring Dr Conley Critical care time spent in reviewing chart, evaluating patient and formulating plan - 36 minutes.
[2018-03-12] MEDS ORDERED: KCL 10 MEQ IVPB 10 MEQ/100 ML INFUS.BAG IVPB SCH (14:15)
--- NOTE | 2018-03-12 14:56 | PN ---
Progress Note, Physician History of Present Illness: patient stable doing much better weakness no complaints - Current Medication List Current Medications: Active Medications Acetaminophen (Tylenol -) 650 mg PO Q4H PRN PRN Reason: FEVER Albuterol Sulfate (Ventolin 0.083% Nebulizer Soln -) 1 amp NEB Q4H PRN PRN Reason: SHORT OF BREATH/WHEEZING Aripiprazole (Abilify) 5 mg PO DAILY [facility] Last Admin: 03/12/18 10:32 Dose: 5 mg Aspirin (Ecotrin -) 81 mg PO DAILY [facility] Last Admin: 03/12/18 10:34 Dose: 81 mg Bupropion HCl (Wellbutrin Xl -) 150 mg PO DAILY [facility] Last Admin: 03/12/18 10:36 Dose: 150 mg Chlorhexidine Gluconate (Hibiclens For Decolonization -) 1 applic TP HS [facility] Last Admin: 03/11/18 21:32 Dose: 1 applic Enoxaparin Sodium (Lovenox -) 40 mg SQ DAILY [facility] Last Admin: 03/12/18 10:33 Dose: 40 mg Folic Acid (Folic Acid -) 1 mg PO DAILY [facility] Last Admin: 03/12/18 10:33 Dose: 1 mg Gabapentin (Neurontin -) 400 mg PO TID [facility] Last Admin: 03/12/18 14:52 Dose: 400 mg Dextrose/Sodium Chloride (D5-1/2ns -) 1,000 mls @ 75 mls/hr IV ASDIR [facility] Last Admin: 03/11/18 19:30 Dose: 75 mls/hr Famotidine/Sodium Chloride (Pepcid 20 Mg Premixed Ivpb -) 20 mg in 50 mls @ 100 mls/hr IVPB DAILY [facility] Last Admin: 03/12/18 10:37 Dose: 100 mls/hr Piperacillin Sod/Tazobactam (Sod 2.25 gm/ Dextrose) 50 mls @ 100 mls/hr IVPB Q8H-IV [facility] PRN Reason: Protocol Last Admin: 03/12/18 10:43 Dose: 100 mls/hr Potassium Chloride (Potassium Chloride 10 Meq Premix Ivpb -) 10 meq in 100 mls @ 100 mls/hr IVPB Q60M [facility] Stop: 03/12/18 15:14 Last Admin: 03/12/18 14:53 Dose: Not Given Metoprolol Succinate (Toprol Xl -) 12.5 mg PO DAILY [facility] Last Admin: 03/12/18 10:33 Dose: 12.5 mg Mupirocin (Bactroban Ointment (For Decolonization) -) 1 applic NS BID [facility] Stop: 03/12/18 21:59 Last Admin: 03/12/18 10:37 Dose: 1 applic Oseltamivir Phosphate (Tamiflu -) 75 mg NGT BID [facility] Stop: 03/13/18 09:59 Last Admin: 03/12/18 10:36 Dose: 75 mg Senna (Senna -) 1 tab PO BID [facility] Last Admin: 03/12/18 10:33 Dose: 1 tab Valproate Sodium (Depakene -) 750 mg PO BID [facility] Last Admin: 03/12/18 10:34 Dose: 750 mg - Objective Vital Signs: Vital Signs Temperature 98 F 03/12/18 14:00 Pulse Rate 66 03/12/18 14:00 Respiratory Rate 11 L 03/12/18 14:00 Blood Pressure 132/82 03/12/18 14:00 O2 Sat by Pulse Oximetry (%) 100 03/11/18 20:51 Constitutional: Yes: No Distress, Calm Neck: Yes: Supple Cardiovascular: Yes: Regular Rate and Rhythm Respiratory: Yes: Regular, Poor Air Entry, Other Gastrointestinal: Yes: Normal Bowel Sounds, Soft Musculoskeletal: Yes: WNL Extremities: Yes: WNL Neurological: Yes: Alert, Oriented Psychiatric: Yes: Alert, Oriented Labs: CBC, BMP 03/12/18 06:05 03/12/18 06:05 INR, PTT INR 1.11 (0.82-1.09) 03/07/18 16:28 - ....Imaging Chest X-ray: Report Reviewed, Image Reviewed Assessment/Plan Problem List - Problems (1) Sepsis Code(s): A41.9 - SEPSIS, UNSPECIFIED ORGANISM Qualifiers: Sepsis type: sepsis due to unspecified organism Qualified Code(s): A41.9 - Sepsis, unspecified organism (2) MARVIN (acute kidney injury) Code(s): N17.9 - ACUTE KIDNEY FAILURE, UNSPECIFIED (3) Pneumonia Code(s): J18.9 - PNEUMONIA, UNSPECIFIED ORGANISM Qualifiers: Laterality: bilateral Lung location: lower lobe of lung (4) Schizo affective schizophrenia Code(s): F25.0 - SCHIZOAFFECTIVE DISORDER, BIPOLAR TYPE (5) Anemia Code(s): D64.9 - ANEMIA, UNSPECIFIED Qualifiers: Anemia type: unspecified type Qualified Code(s): D64.9 - Anemia, unspecified (6) Demand ischemia Code(s): I24.8 - OTHER FORMS OF ACUTE ISCHEMIC HEART DISEASE IMP: Acute Respiratory Failure Multilobar PNA Influenza B (+) Sepsis UTI AMS Schizoaffective D/O MARVIN plan continue current mgmt will continue abx will deescalte abx continue resp support patient stable improving cc 40 min
[2018-03-12] MEDS ORDERED: ACETAMINOPHEN 325 MG TABLET (FP) PO PRN (15:53)
[2018-03-12] MEDS: DEXTROSE 5%-0.45% SALINE 1,000 ML IV SCH ×2 (16:04→21:08)
[2018-03-12] MEDS: CHLORHEXIDINE GLUCONATE 4% CLEANSER FOR DECOLONIZATION TP SCH (21:08)
[2018-03-13] MEDS: PIPERACILLIN/TAZOB 2.25 GM 2.25 GM in DEXTROSE 5%-WATER - 50 ML IVPB SCH ×3 (01:19→18:19)
[2018-03-13] MEDS: GABAPENTIN 400 MG CAPSULE (FP) PO SCH ×3 (06:03→23:11)
[2018-03-13 07:37] LABS: HEMATOCRIT 29.9 % (35.4-49); HEMOGLOBIN 10.6 GM/dL (11.7-16.9); MCH 34.5 pg (25.7-33.7); MCHC 35.4 g/dl (32.0-35.9); MEAN CELL VOLUME 97.4 fl (80-96); MEAN PLT VOLUME 7.2 fl (7.5-11.1); PLATELET COUNT 210 K/MM3 (134-434); RBC 3.07 M/mm3 (4.00-5.60); WHITE BLOOD COUNT 4.1 K/mm3 (4.0-10.0)
[2018-03-13 07:46] LABS: BLOOD UREA NITROGEN 8 mg/dL (7-18); CREATININE 0.5 mg/dL (0.7-1.3); GLUCOSE,RANDOM 85 mg/dL (74-106)
[2018-03-13 07:47] LABS: ALBUMIN 1.9 g/dl (3.4-5.0); ALK PHOS 55 U/L (45-117); ANION GAP 9 (8-16); BILIRUBIN,TOTAL 0.2 mg/dL (0.2-1.0); CALCIUM 8.3 mg/dL (8.5-10.1); CHLORIDE 107 mmol/L (98-107); CO2 29 mmol/L (21-32); POTASSIUM 3.5 mmol/L (3.5-5.1); SGOT/AST 17 U/L (15-37); SGPT/ALT 10 U/L (12-78); SODIUM 145 mmol/L (136-145); TOT PROT 5.2 g/dl (6.4-8.2)
[2018-03-13] MEDS ORDERED: PT OWN MED DRAWER 7, Y5N ONE ×4 (09:04→11:45)
[2018-03-13] MEDS: SENNOSIDES 8.6MG TABLET (FP) PO SCH (09:21)
[2018-03-13] MEDS: FOLIC ACID 1 MG TABLET (FP) PO SCH (09:21)
[2018-03-13] MEDS: FAMOTIDINE 20 MG/50 ML IVPB 20 MG/50 ML MG IVPB SCH (09:21)
[2018-03-13] MEDS: ASPIRIN COATED 81 MG TABLET.EC PO SCH (09:21)
--- NOTE | 2018-03-13 09:43 | PN ---
Progress Note, Physician Chief Complaint: no distress feels well has a good appetite no further episodes of bradycardia - Current Medication List Current Medications: Active Medications Acetaminophen (Tylenol -) 650 mg PO Q4H PRN PRN Reason: FEVER Last Admin: 03/12/18 16:00 Dose: 650 mg Acetaminophen (Tylenol -) 650 mg PO Q6H PRN PRN Reason: PAIN LEVEL 4 - 6 Albuterol Sulfate (Ventolin 0.083% Nebulizer Soln -) 1 amp NEB Q4H PRN PRN Reason: SHORT OF BREATH/WHEEZING Aripiprazole (Abilify) 5 mg PO DAILY [facility] Last Admin: 03/12/18 10:32 Dose: 5 mg Aspirin (Ecotrin -) 81 mg PO DAILY [facility] Last Admin: 03/13/18 09:21 Dose: 81 mg Bupropion HCl (Wellbutrin Xl -) 150 mg PO DAILY [facility] Last Admin: 03/12/18 10:36 Dose: 150 mg Chlorhexidine Gluconate (Hibiclens For Decolonization -) 1 applic TP HS [facility] Last Admin: 03/12/18 21:08 Dose: 1 applic Enoxaparin Sodium (Lovenox -) 40 mg SQ DAILY [facility] Last Admin: 03/12/18 10:33 Dose: 40 mg Folic Acid (Folic Acid -) 1 mg PO DAILY [facility] Last Admin: 03/13/18 09:21 Dose: 1 mg Gabapentin (Neurontin -) 400 mg PO TID [facility] Last Admin: 03/13/18 06:03 Dose: 400 mg Dextrose/Sodium Chloride (D5-1/2ns -) 1,000 mls @ 75 mls/hr IV ASDIR [facility] Last Admin: 03/12/18 21:08 Dose: Not Given Famotidine/Sodium Chloride (Pepcid 20 Mg Premixed Ivpb -) 20 mg in 50 mls @ 100 mls/hr IVPB DAILY [facility] Last Admin: 03/13/18 09:21 Dose: 100 mls/hr Piperacillin Sod/Tazobactam (Sod 2.25 gm/ Dextrose) 50 mls @ 100 mls/hr IVPB Q8H-IV [facility] PRN Reason: Protocol Last Admin: 03/13/18 01:19 Dose: 100 mls/hr Metoprolol Succinate (Toprol Xl -) 12.5 mg PO DAILY [facility] Last Admin: 03/12/18 10:33 Dose: 12.5 mg Oseltamivir Phosphate (Tamiflu -) 75 mg NGT BID [facility] Stop: 03/13/18 09:59 Last Admin: 03/12/18 21:10 Dose: 75 mg Senna (Senna -) 1 tab PO BID [facility] Last Admin: 03/13/18 09:21 Dose: 1 tab Valproate Sodium (Depakene -) 750 mg PO BID [facility] Last Admin: 03/12/18 21:09 Dose: 750 mg - Objective Vital Signs: Vital Signs Temperature 98 F 03/13/18 09:34 Pulse Rate 46 L 03/13/18 09:34 Respiratory Rate 12 03/13/18 08:00 Blood Pressure 139/77 03/13/18 08:00 O2 Sat by Pulse Oximetry (%) 100 03/12/18 20:00 Constitutional: Yes: No Distress Cardiovascular: Yes: Regular Rate and Rhythm Respiratory: Yes: Diminished Gastrointestinal: Yes: Normal Bowel Sounds, Soft. No: Tenderness Edema: No Labs: CBC, BMP 03/13/18 05:45 03/13/18 05:45 INR, PTT INR 1.11 (0.82-1.09) 03/07/18 16:28 Problem List - Problems (1) MARVIN (acute kidney injury) Code(s): N17.9 - ACUTE KIDNEY FAILURE, UNSPECIFIED (2) Acute respiratory failure with hypoxia Code(s): J96.01 - ACUTE RESPIRATORY FAILURE WITH HYPOXIA (3) Anemia Code(s): D64.9 - ANEMIA, UNSPECIFIED Qualifiers: Anemia type: unspecified type Qualified Code(s): D64.9 - Anemia, unspecified (4) Demand ischemia Code(s): I24.8 - OTHER FORMS OF ACUTE ISCHEMIC HEART DISEASE (5) Influenza B Code(s): J10.1 - FLU DUE TO OTH IDENT INFLUENZA VIRUS W OTH RESP MANIFEST (6) Pneumonia Code(s): J18.9 - PNEUMONIA, UNSPECIFIED ORGANISM Qualifiers: Laterality: bilateral Lung location: lower lobe of lung (7) Schizo affective schizophrenia Code(s): F25.0 - SCHIZOAFFECTIVE DISORDER, BIPOLAR TYPE (8) Sepsis Code(s): A41.9 - SEPSIS, UNSPECIFIED ORGANISM Qualifiers: Sepsis type: sepsis due to unspecified organism Qualified Code(s): A41.9 - Sepsis, unspecified organism Assessment/Plan PLAN Continue with iv antibiotics completed Tamiflu troponins elevated due to sepsis pt clinically improving Lovenox for DVT prophylaxis will need physical therapy ok for transfer to [facility]
[2018-03-13] MEDS ORDERED: DEXTROSE 5%-WATER - 50 ML IVPB ONE ×2 (10:11→18:12)
[2018-03-13] MEDS ORDERED: PIPERACILLIN/TAZOBACTAM 2.25 GM VIAL IVPB ONE ×2 (10:11→18:12)
[2018-03-13] MEDS: VALPROATE SODIUM 250 MG/5 ML UNIT DOSE CUP PO SCH ×2 (10:21→23:11)
[2018-03-13] MEDS: ARIPiprazole 5 MG TABLET (FP) PO SCH (10:22)
[2018-03-13] MEDS: ENOXAPARIN NA (PORCINE) 40 MG/0.4 ML DISP.SYRIN SQ SCH (10:23)
--- NOTE | 2018-03-13 11:35 | PN ---
Physical Exam: SUBJECTIVE: Patient seen and examined no acute events overnight had BM today still with minor cough; no sputum production sating 95% on room air OBJECTIVE: Vital Signs Period Temp Pulse Resp BP Sys/[place] Pulse Ox Last 24 Hr 97.8 F-98.4 F 44-70 11-16 84-154/57-96 100-100 GENERAL: The patient is awake, alert, and fully oriented, in no acute distress. LUNGS: b/l congestion; improved from yesterday HEART: Regular rate and rhythm, S1, S2 without murmur, rub or gallop. ABDOMEN: Soft, nontender, nondistended, normoactive bowel sounds, no guarding, no rebound, no hepatosplenomegaly, no masses. EXTREMITIES: 2+ pulses, warm, well-perfused, no edema. Decrease ROM B/L extremities; decreased muscle strength 3/5 b/l; NEUROLOGICAL: Cranial nerves II through XII grossly intact. slowed speech, at baseline. Laboratory Results - last 24 hr 03/13/18 03/13/18 05:45 05:45 WBC 4.1 RBC 3.07 L Hgb 10.6 L Hct 29.9 L MCV 97.4 H MCH 34.5 H MCHC 35.4 RDW 13.0 Plt Count 210 MPV 7.2 L Sodium 145 Potassium 3.5 Chloride 107 Carbon Dioxide 29 Anion Gap 9 BUN 8 D Creatinine 0.5 L D Creat Clearance w eGFR > 60 Random Glucose 85 Calcium 8.3 L Total Bilirubin 0.2 AST 17 ALT 10 L Alkaline Phosphatase 55 Total Protein 5.2 L Albumin 1.9 L Active Medications Generic Name Dose Route Start Last Admin Trade Name Freq PRN Reason Stop Dose Admin Acetaminophen 650 mg 03/11/18 19:53 03/12/18 16:00 Tylenol - PO 650 mg Q4H PRN Administration FEVER Acetaminophen 650 mg 03/12/18 15:53 Tylenol - PO Q6H PRN PAIN LEVEL 4 - 6 Albuterol Sulfate 1 amp 03/11/18 19:53 Ventolin 0.083% Nebulizer Soln - NEB Q4H PRN SHORT OF BREATH/WHEEZING Aripiprazole 5 mg 03/12/18 10:00 03/13/18 10:22 Abilify PO 5 mg DAILY [facility] Administration Aspirin 81 mg 03/12/18 10:00 05/09/18 09:21 Ecotrin - PO 81 mg DAILY [facility] Administration Bupropion HCl 150 mg 03/12/18 10:00 03/12/18 10:36 Wellbutrin Xl - PO 150 mg DAILY [facility] Administration Chlorhexidine Gluconate 1 applic 03/11/18 22:00 03/12/18 21:08 Hibiclens For Decolonization - TP 1 applic HS [facility] Administration Enoxaparin Sodium 40 mg 03/12/18 10:00 03/13/18 10:23 Lovenox - SQ 40 mg DAILY [facility] Administration Folic Acid 1 mg 03/12/18 10:00 03/13/18 09:21 Folic Acid - PO 1 mg DAILY [facility] Administration Gabapentin 400 mg 03/11/18 22:00 03/13/18 06:03 Neurontin - PO 400 mg TID [facility] Administration Famotidine/Sodium Chloride 20 mg in 50 mls @ 100 mls/hr 03/12/18 10:00 09:21 Pepcid 20 Mg Premixed Ivpb - IVPB 100 mls/hr DAILY [facility] Administration Piperacillin Sod/Tazobactam 50 mls @ 100 mls/hr 03/12/18 02:00 03/13/18 10:21 Sod 2.25 gm/ Dextrose IVPB 100 mls/hr Q8H-IV [facility] Administration Protocol Metoprolol Succinate 12.5 mg 03/12/18 10:00 03/12/18 10:33 Toprol Xl - PO 12.5 mg DAILY [facility] Administration Valproate Sodium 750 mg 03/11/18 22:00 03/13/18 10:21 Depakene - PO 750 mg BID [facility] Administration ASSESSMENT/PLAN: This is a 73 year old male with acute respiratory failure secondary to multilobar PNA, sepsis, influenza B, UTI, MARVIN, NSTEMI. #Acute respiratory failure, secondary to multilobar PNA: resolving -off NC ; sating well on RA -cont chest PT -nebs prn -IV antibiotics; -disscuess with ID to deescalate antibiotics regimen #UTI : resolving -sensitive to levaquin; julito ID recs to po meds #MARVIN sec to sepsis; UTI; dehydration: improved -off IVF #AMS: improved; sec to sepsis #Infulenza B: -completed tamiflu course -off resp droplet precautions if not coughing #schizoaffective disorder: cont wellbutrin #Demand ischema -asa DVT ppl; on lovenox GI ppl: ranitidine Disposition: transfer to floors Problem List - Problems (1) MARVIN (acute kidney injury) Code(s): N17.9 - ACUTE KIDNEY FAILURE, UNSPECIFIED (2) Acute respiratory failure with hypoxia Code(s): J96.01 - ACUTE RESPIRATORY FAILURE WITH HYPOXIA (3) Anemia Code(s): D64.9 - ANEMIA, UNSPECIFIED Qualifiers: Anemia type: unspecified type Qualified Code(s): D64.9 - Anemia, unspecified (4) Demand ischemia Code(s): I24.8 - OTHER FORMS OF ACUTE ISCHEMIC HEART DISEASE (5) Influenza B Code(s): J10.1 - FLU DUE TO OTH IDENT INFLUENZA VIRUS W OTH RESP MANIFEST (6) Pneumonia Code(s): J18.9 - PNEUMONIA, UNSPECIFIED ORGANISM Qualifiers: Laterality: bilateral Lung location: lower lobe of lung (7) Schizo affective schizophrenia Code(s): F25.0 - SCHIZOAFFECTIVE DISORDER, BIPOLAR TYPE (8) Sepsis Code(s): A41.9 - SEPSIS, UNSPECIFIED ORGANISM Qualifiers: Sepsis type: sepsis due to unspecified organism Qualified Code(s): A41.9 - Sepsis, unspecified organism Visit type - Emergency Visit Emergency Visit: Yes ED Registration Date: 03/07/18 Care time: The patient presented to the Emergency Department on the above date and was hospitalized for further evaluation of their emergent condition. - New Patient This patient is new to me today: Yes Date on this admission: 03/13/18 - Critical Care Critical Care patient: Yes Total Critical Care Time (in minutes): 45 Critical Care Statement: The care of this patient involved high complexity decision making to prevent further life threatening deterioration of the patient 's condition and/or to evaluate & treat vital organ system(s) failure or risk of failure.
[2018-03-13] MEDS: metoPROLOL SUCCINATE 25 MG TAB.SR.24H (FP) PO SCH (11:58)
--- NOTE | 2018-03-13 12:31 | PN ---
Teaching Attending Note Name of Resident: Ana Owens ATTENDING PHYSICIAN STATEMENT I saw and evaluated the patient. I reviewed the resident's note and discussed the case with the resident. I agree with the resident's findings and plan as documented. SUBJECTIVE: Patient seen and examined in the ICU. Awake and alert. Some cough persists. No SOB. Denies CP. Intake & Output 03/10/18 03/11/18 03/12/18 03/13/18 23:59 23:59 23:59 23:59 Intake Total 20350 900 Output Total 2800 4200 3100 Balance -764 -2200 -910 900 Weight 165 lb 6.4 oz 151 lb 12.8 oz 152 lb 9.6 oz 152 lb 8 oz Last Vital Signs Temp Pulse Resp BP Pulse Ox 98 F 60 12 138/87 100 03/13/18 10:00 03/13/18 12:00 03/13/18 12:00 03/13/18 12:00 03/13/18 09:00 Active Medications Acetaminophen (Tylenol -) 650 mg PO Q4H PRN PRN Reason: FEVER Last Admin: 03/12/18 16:00 Dose: 650 mg Acetaminophen (Tylenol -) 650 mg PO Q6H PRN PRN Reason: PAIN LEVEL 4 - 6 Albuterol Sulfate (Ventolin 0.083% Nebulizer Soln -) 1 amp NEB Q4H PRN PRN Reason: SHORT OF BREATH/WHEEZING Aripiprazole (Abilify) 5 mg PO DAILY [facility] Last Admin: 03/13/18 10:22 Dose: 5 mg Aspirin (Ecotrin -) 81 mg PO DAILY [facility] Last Admin: 03/13/18 09:21 Dose: 81 mg Bupropion HCl (Wellbutrin Xl -) 150 mg PO DAILY [facility] Last Admin: 03/13/18 11:59 Dose: Not Given Chlorhexidine Gluconate (Hibiclens For Decolonization -) 1 applic TP HS [facility] Last Admin: 03/12/18 21:08 Dose: 1 applic Enoxaparin Sodium (Lovenox -) 40 mg SQ DAILY [facility] Last Admin: 03/13/18 10:23 Dose: 40 mg Folic Acid (Folic Acid -) 1 mg PO DAILY [facility] Last Admin: 03/13/18 09:21 Dose: 1 mg Gabapentin (Neurontin -) 400 mg PO TID [facility] Last Admin: 03/13/18 06:03 Dose: 400 mg Piperacillin Sod/Tazobactam (Sod 2.25 gm/ Dextrose) 50 mls @ 100 mls/hr IVPB Q8H-IV [facility] PRN Reason: Protocol Last Admin: 03/13/18 10:21 Dose: 100 mls/hr Metoprolol Succinate (Toprol Xl -) 12.5 mg PO DAILY [facility] Last Admin: 03/13/18 11:58 Dose: 12.5 mg Ranitidine HCl (Zantac -) 150 mg PO DAILY [facility] Valproate Sodium (Depakene -) 750 mg PO BID [facility] Last Admin: 03/13/18 10:21 Dose: 750 mg Gen: Awake and alert, NAD HEENT: PERRL, (-) JVP Pulm: Scattered rhonchi, no wheeze CV: RRR, (-) murmur ABD; soft, (+) BS, NT Ext: (+) PP Neuro: Awake and alert, non-focal Laboratory Results - last 24 hr 03/13/18 03/13/18 05:45 05:45 WBC 4.1 RBC 3.07 L Hgb 10.6 L Hct 29.9 L MCV 97.4 H MCH 34.5 H MCHC 35.4 RDW 13.0 Plt Count 210 MPV 7.2 L Sodium 145 Potassium 3.5 Chloride 107 Carbon Dioxide 29 Anion Gap 9 BUN 8 D Creatinine 0.5 L D Creat Clearance w eGFR > 60 Random Glucose 85 Calcium 8.3 L Total Bilirubin 0.2 AST 17 ALT 10 L Alkaline Phosphatase 55 Total Protein 5.2 L Albumin 1.9 L Problem List - Problems (1) Sepsis Code(s): A41.9 - SEPSIS, UNSPECIFIED ORGANISM Qualifiers: Sepsis type: sepsis due to unspecified organism Qualified Code(s): A41.9 - Sepsis, unspecified organism (2) MARVIN (acute kidney injury) Code(s): N17.9 - ACUTE KIDNEY FAILURE, UNSPECIFIED (3) Pneumonia Code(s): J18.9 - PNEUMONIA, UNSPECIFIED ORGANISM Qualifiers: Laterality: bilateral Lung location: lower lobe of lung (4) Schizo affective schizophrenia Code(s): F25.0 - SCHIZOAFFECTIVE DISORDER, BIPOLAR TYPE (5) Anemia Code(s): D64.9 - ANEMIA, UNSPECIFIED Qualifiers: Anemia type: unspecified type Qualified Code(s): D64.9 - Anemia, unspecified (6) Demand ischemia Code(s): I24.8 - OTHER FORMS OF ACUTE ISCHEMIC HEART DISEASE IMP: Acute Respiratory Failure Multilobar PNA Influenza B (+) Sepsis UTI AMS Schizoaffective D/O MARVIN Demand ischemia PLAN: ABX per ID Tamiflu Lovenox BID PO as tolerated BD TX Cardiac Telemetry monitoring Dr Conley Critical care time spent in reviewing chart, evaluating patient and formulating plan - 36 minutes.
--- NOTE | 2018-03-13 13:55 | PN ---
Progress Note, Physician History of Present Illness: Comfortable on RA. - Current Medication List Current Medications: Active Medications Acetaminophen (Tylenol -) 650 mg PO Q4H PRN PRN Reason: FEVER Last Admin: 03/12/18 16:00 Dose: 650 mg Acetaminophen (Tylenol -) 650 mg PO Q6H PRN PRN Reason: PAIN LEVEL 4 - 6 Albuterol Sulfate (Ventolin 0.083% Nebulizer Soln -) 1 amp NEB Q4H PRN PRN Reason: SHORT OF BREATH/WHEEZING Aripiprazole (Abilify) 5 mg PO DAILY [facility] Last Admin: 03/13/18 10:22 Dose: 5 mg Aspirin (Ecotrin -) 81 mg PO DAILY [facility] Last Admin: 03/13/18 09:21 Dose: 81 mg Bupropion HCl (Wellbutrin Xl -) 150 mg PO DAILY [facility] Last Admin: 03/13/18 12:47 Dose: 150 mg Chlorhexidine Gluconate (Hibiclens For Decolonization -) 1 applic TP HS [facility] Last Admin: 03/12/18 21:08 Dose: 1 applic Enoxaparin Sodium (Lovenox -) 40 mg SQ DAILY [facility] Last Admin: 03/13/18 10:23 Dose: 40 mg Folic Acid (Folic Acid -) 1 mg PO DAILY [facility] Last Admin: 03/13/18 09:21 Dose: 1 mg Gabapentin (Neurontin -) 400 mg PO TID [facility] Last Admin: 03/13/18 06:03 Dose: 400 mg Piperacillin Sod/Tazobactam (Sod 2.25 gm/ Dextrose) 50 mls @ 100 mls/hr IVPB Q8H-IV GARRETT PRN Reason: Protocol Last Admin: 03/13/18 10:21 Dose: 100 mls/hr Metoprolol Succinate (Toprol Xl -) 12.5 mg PO DAILY [facility] Last Admin: 03/13/18 11:58 Dose: 12.5 mg Ranitidine HCl (Zantac -) 150 mg PO DAILY [facility] Valproate Sodium (Depakene -) 750 mg PO BID [facility] Last Admin: 03/13/18 10:21 Dose: 750 mg - Objective Vital Signs: Vital Signs Temperature 98.4 F 03/13/18 13:44 Pulse Rate 64 03/13/18 13:44 Respiratory Rate 12 03/13/18 13:44 Blood Pressure 126/84 03/13/18 13:44 O2 Sat by Pulse Oximetry (%) 100 03/13/18 09:00 Constitutional: Yes: No Distress, Calm, Thin Neck: Yes: Supple Cardiovascular: Yes: Regular Rate and Rhythm Respiratory: Yes: Regular, Diminished Gastrointestinal: Yes: Normal Bowel Sounds, Soft Edema: No Labs: CBC, BMP 03/13/18 05:45 03/13/18 05:45 INR, PTT INR 1.11 (0.82-1.09) 03/07/18 16:28 Problem List - Problems (1) Sepsis Code(s): A41.9 - SEPSIS, UNSPECIFIED ORGANISM Qualifiers: Sepsis type: sepsis due to unspecified organism Qualified Code(s): A41.9 - Sepsis, unspecified organism (2) MARVIN (acute kidney injury) Code(s): N17.9 - ACUTE KIDNEY FAILURE, UNSPECIFIED (3) Pneumonia Code(s): J18.9 - PNEUMONIA, UNSPECIFIED ORGANISM Qualifiers: Laterality: bilateral Lung location: lower lobe of lung (4) Schizo affective schizophrenia Code(s): F25.0 - SCHIZOAFFECTIVE DISORDER, BIPOLAR TYPE (5) Anemia Code(s): D64.9 - ANEMIA, UNSPECIFIED Qualifiers: Anemia type: unspecified type Qualified Code(s): D64.9 - Anemia, unspecified (6) Demand ischemia Code(s): I24.8 - OTHER FORMS OF ACUTE ISCHEMIC HEART DISEASE Assessment/Plan 03/12/2018 Echocardiography revealed normal LV size and function with LV EF of 55-60%, trace to mild MR and TR 1. Post acute hypoxic respiratory failure post mechanical ventilation/extubated 2. Influenza B 3. Multi-lobar pneumonia with sepsis syndrome, resolving 4. CAD with evidence of demand ischemic injury 5. Sinus bradycardia asymptomatic 6. History of schiozo-affective disorder 7. MARVIN resolved 8. Neutropenia and anemia 9. Hypokalemia improved 10. UTI PLAN: 1. Continue ASA 81 qd, Toprol XL 12.5 qd 2. Monitor Hg and maintain equal or > 8.0 3. DVT and GI prophylaxis, complete abx course, finished Tamiflu
--- NOTE | 2018-03-13 14:46 | PN ---
Progress Note, Physician History of Present Illness: patient stable doing well no issues - Current Medication List Current Medications: Active Medications Acetaminophen (Tylenol -) 650 mg PO Q4H PRN PRN Reason: FEVER Last Admin: 03/12/18 16:00 Dose: 650 mg Acetaminophen (Tylenol -) 650 mg PO Q6H PRN PRN Reason: PAIN LEVEL 4 - 6 Albuterol Sulfate (Ventolin 0.083% Nebulizer Soln -) 1 amp NEB Q4H PRN PRN Reason: SHORT OF BREATH/WHEEZING Aripiprazole (Abilify) 5 mg PO DAILY [facility] Last Admin: 03/13/18 10:22 Dose: 5 mg Aspirin (Ecotrin -) 81 mg PO DAILY [facility] Last Admin: 03/13/18 09:21 Dose: 81 mg Bupropion HCl (Wellbutrin Xl -) 150 mg PO DAILY [facility] Last Admin: 03/13/18 12:47 Dose: 150 mg Chlorhexidine Gluconate (Hibiclens For Decolonization -) 1 applic TP HS [facility] Last Admin: 03/12/18 21:08 Dose: 1 applic Enoxaparin Sodium (Lovenox -) 40 mg SQ DAILY [facility] Last Admin: 03/13/18 10:23 Dose: 40 mg Folic Acid (Folic Acid -) 1 mg PO DAILY [facility] Last Admin: 03/13/18 09:21 Dose: 1 mg Gabapentin (Neurontin -) 400 mg PO TID [facility] Last Admin: 03/13/18 14:30 Dose: 400 mg Piperacillin Sod/Tazobactam (Sod 2.25 gm/ Dextrose) 50 mls @ 100 mls/hr IVPB Q8H-IV GARRETT PRN Reason: Protocol Last Admin: 03/13/18 10:21 Dose: 100 mls/hr Metoprolol Succinate (Toprol Xl -) 12.5 mg PO DAILY [facility] Last Admin: 03/13/18 11:58 Dose: 12.5 mg Ranitidine HCl (Zantac -) 150 mg PO DAILY [facility] Valproate Sodium (Depakene -) 750 mg PO BID [facility] Last Admin: 03/13/18 10:21 Dose: 750 mg - Objective Vital Signs: Vital Signs Temperature 98.4 F 03/13/18 13:44 Pulse Rate 64 03/13/18 13:44 Respiratory Rate 12 03/13/18 13:44 Blood Pressure 126/84 03/13/18 13:44 O2 Sat by Pulse Oximetry (%) 100 03/13/18 09:00 Constitutional: Yes: No Distress, Calm Cardiovascular: Yes: Regular Rate and Rhythm Respiratory: Yes: Regular, CTA Bilaterally Gastrointestinal: Yes: Normal Bowel Sounds, Soft Musculoskeletal: Yes: WNL Extremities: Yes: WNL Neurological: Yes: Alert, Oriented Psychiatric: Yes: Alert, Oriented Labs: CBC, BMP 03/13/18 05:45 03/13/18 05:45 INR, PTT INR 1.11 (0.82-1.09) 03/07/18 16:28 Assessment/Plan Problem List - Problems (1) Sepsis Code(s): A41.9 - SEPSIS, UNSPECIFIED ORGANISM Qualifiers: Sepsis type: sepsis due to unspecified organism Qualified Code(s): A41.9 - Sepsis, unspecified organism (2) MARVIN (acute kidney injury) Code(s): N17.9 - ACUTE KIDNEY FAILURE, UNSPECIFIED (3) Pneumonia Code(s): J18.9 - PNEUMONIA, UNSPECIFIED ORGANISM Qualifiers: Laterality: bilateral Lung location: lower lobe of lung (4) Schizo affective schizophrenia Code(s): F25.0 - SCHIZOAFFECTIVE DISORDER, BIPOLAR TYPE (5) Anemia Code(s): D64.9 - ANEMIA, UNSPECIFIED Qualifiers: Anemia type: unspecified type Qualified Code(s): D64.9 - Anemia, unspecified (6) Demand ischemia Code(s): I24.8 - OTHER FORMS OF ACUTE ISCHEMIC HEART DISEASE IMP: Acute Respiratory Failure Multilobar PNA Influenza B (+) Sepsis UTI AMS Schizoaffective D/O MARVIN plan continue current mgmt continue abx complete 7 days of abx and then stop it patient stable improving cx results noted cc 40 min
[2018-03-13] MEDS: CHLORHEXIDINE GLUCONATE 4% CLEANSER FOR DECOLONIZATION TP SCH (23:31)
[2018-03-14] MEDS ORDERED: DEXTROSE 5%-WATER - 50 ML IVPB ONE ×4 (01:20→17:51)
[2018-03-14] MEDS ORDERED: PIPERACILLIN/TAZOBACTAM 2.25 GM VIAL IVPB ONE ×4 (01:20→17:51)
[2018-03-14] MEDS: PIPERACILLIN/TAZOB 2.25 GM 2.25 GM in DEXTROSE 5%-WATER - 50 ML IVPB SCH ×3 (01:38→18:08)
[2018-03-14] MEDS: GABAPENTIN 400 MG CAPSULE (FP) PO SCH ×3 (06:02→22:13)
[2018-03-14 06:36] LABS: BASO % 0.5 % (0-2.0); EOS % 2.7 % (0-4.5); HEMATOCRIT 31.6 % (35.4-49); HEMOGLOBIN 11.1 GM/dL (11.7-16.9); LYMPH % 31.1 % (8-40); MCH 33.9 pg (25.7-33.7); MCHC 35.1 g/dl (32.0-35.9); MEAN CELL VOLUME 96.7 fl (80-96); MEAN PLT VOLUME 6.9 fl (7.5-11.1); MONO % 9.6 % (3.8-10.2); NEUT % 56.1 % (42.8-82.8); PLATELET COUNT 285 K/MM3 (134-434); RBC 3.27 M/mm3 (4.00-5.60); RDW 12.9 % (11.9-15.9); WHITE BLOOD COUNT 5.9 K/mm3 (4.0-10.0)
[2018-03-14 07:01] LABS: ANION GAP 5 (8-16); BLOOD UREA NITROGEN 11 mg/dL (7-18); CALCIUM 7.8 mg/dL (8.5-10.1); CHLORIDE 108 mmol/L (98-107); CO2 30 mmol/L (21-32); CREATININE 0.6 mg/dL (0.7-1.3); GLUCOSE,RANDOM 81 mg/dL (74-106); MAGNESIUM 1.9 mg/dL (1.8-2.4); PHOSPHOROUS 2.9 mg/dL (2.5-4.9); POTASSIUM 3.8 mmol/L (3.5-5.1); SODIUM 143 mmol/L (136-145)
--- NOTE | 2018-03-14 10:05 | PN ---
Progress Note, Physician History of Present Illness: Comfortable on RA. - Current Medication List Current Medications: Active Medications Acetaminophen (Tylenol -) 650 mg PO Q4H PRN PRN Reason: FEVER Last Admin: 03/12/18 16:00 Dose: 650 mg Acetaminophen (Tylenol -) 650 mg PO Q6H PRN PRN Reason: PAIN LEVEL 4 - 6 Albuterol Sulfate (Ventolin 0.083% Nebulizer Soln -) 1 amp NEB Q4H PRN PRN Reason: SHORT OF BREATH/WHEEZING Aripiprazole (Abilify) 5 mg PO DAILY [facility] Last Admin: 03/13/18 10:22 Dose: 5 mg Aspirin (Ecotrin -) 81 mg PO DAILY [facility] Last Admin: 03/13/18 09:21 Dose: 81 mg Bupropion HCl (Wellbutrin Xl -) 150 mg PO DAILY [facility] Last Admin: 03/13/18 12:47 Dose: 150 mg Enoxaparin Sodium (Lovenox -) 40 mg SQ DAILY [facility] Last Admin: 03/13/18 10:23 Dose: 40 mg Folic Acid (Folic Acid -) 1 mg PO DAILY [facility] Last Admin: 03/13/18 09:21 Dose: 1 mg Gabapentin (Neurontin -) 400 mg PO TID [facility] Last Admin: 03/14/18 06:02 Dose: 400 mg Piperacillin Sod/Tazobactam (Sod 2.25 gm/ Dextrose) 50 mls @ 100 mls/hr IVPB Q8H-IV GARRETT PRN Reason: Protocol Last Admin: 03/14/18 01:38 Dose: 100 mls/hr Metoprolol Succinate (Toprol Xl -) 12.5 mg PO DAILY [facility] Last Admin: 03/13/18 11:58 Dose: 12.5 mg Ranitidine HCl (Zantac -) 150 mg PO DAILY [facility] Valproate Sodium (Depakene -) 750 mg PO BID [facility] Last Admin: 03/13/18 23:11 Dose: 750 mg - Objective Vital Signs: Vital Signs Temperature 98.8 F 03/14/18 06:00 Pulse Rate 55 L 03/14/18 06:00 Respiratory Rate 18 03/14/18 06:00 Blood Pressure 112/80 03/14/18 06:00 O2 Sat by Pulse Oximetry (%) 100 03/13/18 21:00 Constitutional: Yes: No Distress, Calm, Thin Neck: Yes: Supple Cardiovascular: Yes: Regular Rate and Rhythm Respiratory: Yes: Regular, Diminished Gastrointestinal: Yes: Normal Bowel Sounds, Soft Edema: No Labs: CBC, BMP 03/14/18 05:35 03/14/18 05:35 INR, PTT INR 1.11 (0.82-1.09) 03/07/18 16:28 - ....Imaging EKG: Report Reviewed (Tele: [facility]) Problem List - Problems (1) Sepsis Code(s): A41.9 - SEPSIS, UNSPECIFIED ORGANISM Qualifiers: Sepsis type: sepsis due to unspecified organism Qualified Code(s): A41.9 - Sepsis, unspecified organism (2) MARVIN (acute kidney injury) Code(s): N17.9 - ACUTE KIDNEY FAILURE, UNSPECIFIED (3) Pneumonia Code(s): J18.9 - PNEUMONIA, UNSPECIFIED ORGANISM Qualifiers: Laterality: bilateral Lung location: lower lobe of lung (4) Schizo affective schizophrenia Code(s): F25.0 - SCHIZOAFFECTIVE DISORDER, BIPOLAR TYPE (5) Anemia Code(s): D64.9 - ANEMIA, UNSPECIFIED Qualifiers: Anemia type: unspecified type Qualified Code(s): D64.9 - Anemia, unspecified (6) Demand ischemia Code(s): I24.8 - OTHER FORMS OF ACUTE ISCHEMIC HEART DISEASE Assessment/Plan 03/12/2018 Echocardiography revealed normal LV size and function with LV EF of 55-60%, trace to mild MR and TR 1. Post acute hypoxic respiratory failure post mechanical ventilation/extubated 2. Influenza B 3. Multi-lobar pneumonia with sepsis syndrome, resolving 4. CAD with evidence of demand ischemic injury 5. Sinus bradycardia asymptomatic 6. History of schiozoaffective disorder 7. MARVIN resolved 8. Neutropenia and anemia 9. Hypokalemia improved 10. Pseudomonas UTI PLAN: 1. Continue ASA 81 qd, Toprol XL 12.5 qd 2. Monitor Hg and maintain equal or > 8.0 3. DVT and GI prophylaxis, complete abx course, finished Tamiflu
--- NOTE | 2018-03-14 10:51 | PN ---
Progress Note, [employer] - Note Progress Note: Selected Entries 03/11/18 03/11/18 03/11/18 02:00 06:00 12:05 Breakfast Temperature 98.4 F 98.7 F 98 F 03/11/18 03/11/18 03/11/18 14:35 20:00 22:00 Breakfast Temperature 97.8 F 98.7 F 98.6 F 03/12/18 03/12/18 03/12/18 02:00 05:42 06:00 Breakfast NPO Temperature 97.5 F L 97.6 F 03/12/18 03/12/18 09:22 10:00 Breakfast 100% Temperature 97.8 F Selected Entries 03/13/18 03/13/18 03/13/18 02:00 06:00 10:00 Breakfast Lunch Supper Temperature 98.2 F 97.8 F 98 F 03/13/18 03/13/18 03/13/18 11:10 13:44 14:27 Breakfast 75% Lunch 75% Supper Temperature 98.4 F 03/13/18 03/13/18 03/13/18 18:00 18:33 22:00 Breakfast Lunch Supper 75% Temperature 97.6 F 97.6 F 03/14/18 03/14/18 01:59 06:00 Breakfast Lunch Supper Temperature 97.5 F L 98.8 F Laboratory Tests 03/14/18 05:35 WBC 5.9 D Soft and thin liquid ordered. No signs or symptoms of dysphagia reported. Mastication is reduced in rate. Swallow is delayed with mildly reduced VOM/ROM. No cough response. Voice mildly dysphonic . Monitor tolerance.
[2018-03-14] MEDS ORDERED: PT OWN MED DRAWER 7, Y5N ONE ×2 (10:54→22:08)
--- NOTE | 2018-03-14 11:31 | PN ---
Progress Note, Physician Chief Complaint: no distress feels well has a good appetite no further episodes of bradycardia - Current Medication List Current Medications: Active Medications Acetaminophen (Tylenol -) 650 mg PO Q4H PRN PRN Reason: FEVER Last Admin: 03/12/18 16:00 Dose: 650 mg Acetaminophen (Tylenol -) 650 mg PO Q6H PRN PRN Reason: PAIN LEVEL 4 - 6 Albuterol Sulfate (Ventolin 0.083% Nebulizer Soln -) 1 amp NEB Q4H PRN PRN Reason: SHORT OF BREATH/WHEEZING Aripiprazole (Abilify) 5 mg PO DAILY [facility] Last Admin: 03/13/18 10:22 Dose: 5 mg Aspirin (Ecotrin -) 81 mg PO DAILY [facility] Last Admin: 03/13/18 09:21 Dose: 81 mg Bupropion HCl (Wellbutrin Xl -) 150 mg PO DAILY [facility] Last Admin: 03/13/18 12:47 Dose: 150 mg Enoxaparin Sodium (Lovenox -) 40 mg SQ DAILY [facility] Last Admin: 03/13/18 10:23 Dose: 40 mg Folic Acid (Folic Acid -) 1 mg PO DAILY [facility] Last Admin: 03/13/18 09:21 Dose: 1 mg Gabapentin (Neurontin -) 400 mg PO TID [facility] Last Admin: 03/14/18 06:02 Dose: 400 mg Piperacillin Sod/Tazobactam (Sod 2.25 gm/ Dextrose) 50 mls @ 100 mls/hr IVPB Q8H-IV GARRETT PRN Reason: Protocol Last Admin: 03/14/18 01:38 Dose: 100 mls/hr Metoprolol Succinate (Toprol Xl -) 12.5 mg PO DAILY [facility] Last Admin: 03/13/18 11:58 Dose: 12.5 mg Ranitidine HCl (Zantac -) 150 mg PO DAILY [facility] Valproate Sodium (Depakene -) 750 mg PO BID [facility] Last Admin: 03/13/18 23:11 Dose: 750 mg - Objective Vital Signs: Vital Signs Temperature 98.8 F 03/14/18 06:00 Pulse Rate 55 L 03/14/18 06:00 Respiratory Rate 18 03/14/18 06:00 Blood Pressure 112/80 03/14/18 06:00 O2 Sat by Pulse Oximetry (%) 100 03/13/18 21:00 Constitutional: Yes: No Distress, Calm Cardiovascular: Yes: Regular Rate and Rhythm Respiratory: Yes: CTA Bilaterally Gastrointestinal: Yes: Normal Bowel Sounds, Soft. No: Tenderness Edema: No Labs: CBC, BMP 03/14/18 05:35 03/14/18 05:35 INR, PTT INR 1.11 (0.82-1.09) 03/07/18 16:28 Problem List - Problems (1) MARVIN (acute kidney injury) Code(s): N17.9 - ACUTE KIDNEY FAILURE, UNSPECIFIED (2) Acute respiratory failure with hypoxia Code(s): J96.01 - ACUTE RESPIRATORY FAILURE WITH HYPOXIA (3) Anemia Code(s): D64.9 - ANEMIA, UNSPECIFIED Qualifiers: Anemia type: unspecified type Qualified Code(s): D64.9 - Anemia, unspecified (4) Demand ischemia Code(s): I24.8 - OTHER FORMS OF ACUTE ISCHEMIC HEART DISEASE (5) Influenza B Code(s): J10.1 - FLU DUE TO OTH IDENT INFLUENZA VIRUS W OTH RESP MANIFEST (6) Pneumonia Code(s): J18.9 - PNEUMONIA, UNSPECIFIED ORGANISM Qualifiers: Laterality: bilateral Lung location: lower lobe of lung (7) Schizo affective schizophrenia Code(s): F25.0 - SCHIZOAFFECTIVE DISORDER, BIPOLAR TYPE (8) Sepsis Code(s): A41.9 - SEPSIS, UNSPECIFIED ORGANISM Qualifiers: Sepsis type: sepsis due to unspecified organism Qualified Code(s): A41.9 - Sepsis, unspecified organism Assessment/Plan PLAN last day iv antibiotics completed Tamiflu pt clinically improving Lovenox for DVT prophylaxis will need physical therapy dc planning
[2018-03-14] MEDS: metoPROLOL SUCCINATE 25 MG TAB.SR.24H (FP) PO SCH (11:33)
[2018-03-14] MEDS: ASPIRIN COATED 81 MG TABLET.EC PO SCH (11:33)
[2018-03-14] MEDS: ENOXAPARIN NA (PORCINE) 40 MG/0.4 ML DISP.SYRIN SQ SCH (11:33)
[2018-03-14] MEDS: RANITIDINE HCL 150 MG TABLET (FP) PO SCH (11:33)
[2018-03-14] MEDS: VALPROATE SODIUM 250 MG/5 ML UNIT DOSE CUP PO SCH ×2 (11:34→22:13)
[2018-03-14] MEDS: FOLIC ACID 1 MG TABLET (FP) PO SCH (11:34)
[2018-03-14] MEDS: ARIPiprazole 5 MG TABLET (FP) PO SCH (11:35)
--- NOTE | 2018-03-14 12:23 | PN ---
Progress Note (short form) - Note Progress Note: PULMONARY States breathing improving. +nonproductive cough. No fevers or chills. Last Vital Signs Temp Pulse Resp BP Pulse Ox 98.8 F 55 L 18 112/80 100 03/14/18 06:00 03/14/18 06:00 03/14/18 06:00 03/14/18 06:00 03/13/18 21:00 Gen: NAD at rest Heart: RRR Lung: scattered rhonchi Abd: soft, nontender Ext: no edema CBC, BMP 03/14/18 05:35 03/14/18 05:35 Active Medications Acetaminophen (Tylenol -) 650 mg PO Q4H PRN PRN Reason: FEVER Last Admin: 03/12/18 16:00 Dose: 650 mg Acetaminophen (Tylenol -) 650 mg PO Q6H PRN PRN Reason: PAIN LEVEL 4 - 6 Albuterol Sulfate (Ventolin 0.083% Nebulizer Soln -) 1 amp NEB Q4H PRN PRN Reason: SHORT OF BREATH/WHEEZING Aripiprazole (Abilify) 5 mg PO DAILY [facility] Last Admin: 03/14/18 11:35 Dose: 5 mg Aspirin (Ecotrin -) 81 mg PO DAILY [facility] Last Admin: 03/14/18 11:33 Dose: 81 mg Bupropion HCl (Wellbutrin Xl -) 150 mg PO DAILY [facility] Last Admin: 03/14/18 11:33 Dose: 150 mg Enoxaparin Sodium (Lovenox -) 40 mg SQ DAILY [facility] Last Admin: 03/14/18 11:33 Dose: 40 mg Folic Acid (Folic Acid -) 1 mg PO DAILY [facility] Last Admin: 03/14/18 11:34 Dose: 1 mg Gabapentin (Neurontin -) 400 mg PO TID [facility] Last Admin: 03/14/18 06:02 Dose: 400 mg Piperacillin Sod/Tazobactam (Sod 2.25 gm/ Dextrose) 50 mls @ 100 mls/hr IVPB Q8H-IV GARRETT PRN Reason: Protocol Last Admin: 03/14/18 11:32 Dose: 100 mls/hr Metoprolol Succinate (Toprol Xl -) 12.5 mg PO DAILY [facility] Last Admin: 03/14/18 11:33 Dose: 12.5 mg Ranitidine HCl (Zantac -) 150 mg PO DAILY [facility] Last Admin: 05/10/18 11:33 Dose: 150 mg Valproate Sodium (Depakene -) 750 mg PO BID [facility] Last Admin: 03/14/18 11:34 Dose: 750 mg A/P s/p Acute Hypoxic Respiratory Failure Pneumonia Influenza B CAD Acute Kidney Injury improving Schizoaffective Disorder - antibiotics per ID - PO as tolerated - O2 to keep SpO2 >90% - aspiration precautions - DVT prophylaxis
--- NOTE | 2018-03-14 12:32 | PN ---
Progress Note, DIRECTOR OF ENGINEERING - Note Progress Note: Selected Entries 03/13/18 03/13/18 03/13/18 02:00 06:00 10:00 Breakfast Lunch Supper Temperature 98.2 F 97.8 F 98 F 03/13/18 03/13/18 03/13/18 11:10 13:44 14:27 Breakfast 75% Lunch 75% Supper Temperature 98.4 F 03/13/18 03/13/18 03/13/18 18:00 18:33 22:00 Breakfast Lunch Supper 75% Temperature 97.6 F 97.6 F 03/14/18 03/14/18 03/14/18 01:59 06:00 11:32 Breakfast 100% Lunch Supper Temperature 97.5 F L 98.8 F Laboratory Tests 03/14/18 05:35 WBC 5.9 D Overtly tolerating diet per staff. Swallow reassessed, with delayed swallow onset and reduced VOM/laryngeal excursion, and slow but efficient mastication. Silent aspiration can not be r/o at bedside. Monitor PO tolerance.
--- NOTE | 2018-03-14 16:32 | PN ---
Progress Note, Physician History of Present Illness: patient stable doing well no new issues - Current Medication List Current Medications: Active Medications Acetaminophen (Tylenol -) 650 mg PO Q4H PRN PRN Reason: FEVER Last Admin: 03/12/18 16:00 Dose: 650 mg Acetaminophen (Tylenol -) 650 mg PO Q6H PRN PRN Reason: PAIN LEVEL 4 - 6 Albuterol Sulfate (Ventolin 0.083% Nebulizer Soln -) 1 amp NEB Q4H PRN PRN Reason: SHORT OF BREATH/WHEEZING Aripiprazole (Abilify) 5 mg PO DAILY [facility] Last Admin: 03/14/18 11:35 Dose: 5 mg Aspirin (Ecotrin -) 81 mg PO DAILY [facility] Last Admin: 03/14/18 11:33 Dose: 81 mg Bupropion HCl (Wellbutrin Xl -) 150 mg PO DAILY [facility] Last Admin: 03/14/18 11:33 Dose: 150 mg Enoxaparin Sodium (Lovenox -) 40 mg SQ DAILY [facility] Last Admin: 03/14/18 11:33 Dose: 40 mg Folic Acid (Folic Acid -) 1 mg PO DAILY [facility] Last Admin: 03/14/18 11:34 Dose: 1 mg Gabapentin (Neurontin -) 400 mg PO TID [facility] Last Admin: 03/14/18 14:36 Dose: 400 mg Piperacillin Sod/Tazobactam (Sod 2.25 gm/ Dextrose) 50 mls @ 100 mls/hr IVPB Q8H-IV GARRETT PRN Reason: Protocol Last Admin: 03/14/18 11:32 Dose: 100 mls/hr Metoprolol Succinate (Toprol Xl -) 12.5 mg PO DAILY [facility] Last Admin: 03/14/18 11:33 Dose: 12.5 mg Ranitidine HCl (Zantac -) 150 mg PO DAILY [facility] Last Admin: 03/14/18 11:33 Dose: 150 mg Valproate Sodium (Depakene -) 750 mg PO BID [facility] Last Admin: 03/14/18 11:34 Dose: 750 mg - Objective Vital Signs: Vital Signs Temperature 97.4 F L 03/14/18 14:45 Pulse Rate 64 03/14/18 14:45 Respiratory Rate 18 03/14/18 14:45 Blood Pressure 138/91 03/14/18 14:45 O2 Sat by Pulse Oximetry (%) 97 03/14/18 10:00 Constitutional: Yes: No Distress, Calm Cardiovascular: Yes: Regular Rate and Rhythm Respiratory: Yes: Regular, CTA Bilaterally Gastrointestinal: Yes: Normal Bowel Sounds, Soft Musculoskeletal: Yes: WNL Extremities: Yes: WNL Neurological: Yes: Alert, Oriented Psychiatric: Yes: Alert, Oriented Labs: CBC, BMP 03/14/18 05:35 03/14/18 05:35 INR, PTT INR 1.11 (0.82-1.09) 03/07/18 16:28 Assessment/Plan Problem List - Problems (1) Sepsis Code(s): A41.9 - SEPSIS, UNSPECIFIED ORGANISM Qualifiers: Sepsis type: sepsis due to unspecified organism Qualified Code(s): A41.9 - Sepsis, unspecified organism (2) MARVIN (acute kidney injury) Code(s): N17.9 - ACUTE KIDNEY FAILURE, UNSPECIFIED (3) Pneumonia Code(s): J18.9 - PNEUMONIA, UNSPECIFIED ORGANISM Qualifiers: Laterality: bilateral Lung location: lower lobe of lung (4) Schizo affective schizophrenia Code(s): F25.0 - SCHIZOAFFECTIVE DISORDER, BIPOLAR TYPE (5) Anemia Code(s): D64.9 - ANEMIA, UNSPECIFIED Qualifiers: Anemia type: unspecified type Qualified Code(s): D64.9 - Anemia, unspecified (6) Demand ischemia Code(s): I24.8 - OTHER FORMS OF ACUTE ISCHEMIC HEART DISEASE IMP: Acute Respiratory Failure Multilobar PNA Influenza B (+) Sepsis UTI AMS Schizoaffective D/O MARVIN plan continue current mgmt continue abx complete 7 days of abx and then stop it patient stable improving cx results noted
[2018-03-15] MEDS ORDERED: PIPERACILLIN/TAZOBACTAM 2.25 GM VIAL IVPB ONE ×2 (01:10→09:39)
[2018-03-15] MEDS ORDERED: DEXTROSE 5%-WATER - 50 ML IVPB ONE ×2 (01:10→09:40)
[2018-03-15] MEDS: PIPERACILLIN/TAZOB 2.25 GM 2.25 GM in DEXTROSE 5%-WATER - 50 ML IVPB SCH ×2 (01:13→09:44)
[2018-03-15] MEDS: GABAPENTIN 400 MG CAPSULE (FP) PO SCH ×3 (05:24→21:33)
[2018-03-15] MEDS ORDERED: PT OWN MED DRAWER 7, Y5N ONE ×2 (09:39→21:24)
[2018-03-15] MEDS: ENOXAPARIN NA (PORCINE) 40 MG/0.4 ML DISP.SYRIN SQ SCH (09:43)
[2018-03-15] MEDS: FOLIC ACID 1 MG TABLET (FP) PO SCH (09:44)
[2018-03-15] MEDS: metoPROLOL SUCCINATE 25 MG TAB.SR.24H (FP) PO SCH (09:44)
[2018-03-15] MEDS: ASPIRIN COATED 81 MG TABLET.EC PO SCH (09:44)
[2018-03-15] MEDS: RANITIDINE HCL 150 MG TABLET (FP) PO SCH (09:44)
[2018-03-15] MEDS: VALPROATE SODIUM 250 MG/5 ML UNIT DOSE CUP PO SCH ×2 (09:45→21:34)
[2018-03-15] MEDS: ARIPiprazole 5 MG TABLET (FP) PO SCH (09:46)
--- NOTE | 2018-03-15 11:20 | PN ---
Progress Note (short form) - Note Progress Note: pt seen/ examined. chart reviewed. more awake. denies pain. complains of cough afebrile Vital Signs Temp 97.1 F L 03/15/18 06:00 Pulse 65 03/15/18 06:00 Resp 20 03/15/18 06:00 BP 134/76 03/15/18 06:00 Pulse Ox 93 L 03/15/18 09:00 Intake & Output 03/14/18 03/14/18 03/15/18 11:59 23:59 11:59 Intake Total 500 250 120 Balance 500 250 120 Weight 150 lb 0.6 oz Intake: Oral 500 250 120 Other: Voiding Method Incontinent Incontinent # Unmeasured Voids Infante 2 Void 1 Bowel Movement Yes: Large Yes # Bowel Movements 1 1 Weight Measurement Method Patient Lift Scale Active Medications Acetaminophen (Tylenol -) 650 mg PO Q4H PRN PRN Reason: FEVER Last Admin: 03/12/18 16:00 Dose: 650 mg Acetaminophen (Tylenol -) 650 mg PO Q6H PRN PRN Reason: PAIN LEVEL 4 - 6 Albuterol Sulfate (Ventolin 0.083% Nebulizer Soln -) 1 amp NEB Q4H PRN PRN Reason: SHORT OF BREATH/WHEEZING Aripiprazole (Abilify) 5 mg PO DAILY [facility] [place] Last Admin: 03/15/18 09:46 Dose: 5 mg Aspirin (Ecotrin -) 81 mg PO DAILY [facility] [place] Last Admin: 03/15/18 09:44 Dose: 81 mg Bupropion HCl (Wellbutrin Xl -) 150 mg PO DAILY [facility] [place] Last Admin: 03/15/18 09:44 Dose: 150 mg Enoxaparin Sodium (Lovenox -) 40 mg SQ DAILY [facility] [place] Last Admin: 03/15/18 09:43 Dose: 40 mg Folic Acid (Folic Acid -) 1 mg PO DAILY [facility] [place] Last Admin: 03/15/18 09:44 Dose: 1 mg Gabapentin (Neurontin -) 400 mg PO TID [facility] [place] Last Admin: 03/15/18 05:24 Dose: 400 mg Piperacillin Sod/Tazobactam (Sod 2.25 gm/ Dextrose) 50 mls @ 100 mls/hr IVPB Q8H-IV GARRETT PRN Reason: Protocol Last Admin: 03/15/18 09:44 Dose: 100 mls/hr Metoprolol Succinate (Toprol Xl -) 12.5 mg PO DAILY [facility] [place] Last Admin: 03/15/18 09:44 Dose: 12.5 mg Ranitidine HCl (Zantac -) 150 mg PO DAILY [facility] [place] Last Admin: 03/15/18 09:44 Dose: 150 mg Valproate Sodium (Depakene -) 750 mg PO BID [facility] [place] Last Admin: 03/15/18 09:45 Dose: 750 mg CBC, BMP 03/14/18 05:35 03/14/18 05:35 Physical Exam Constitutional: Yes: No Distress, comfortable. Cardiovascular: Yes: Regular Rate and Rhythm Respiratory: Yes: diminished at bases Gastrointestinal: Yes: Normal Bowel Sounds, Soft. No: Tenderness Edema: No Problem List - Problems (1) MARVIN (acute kidney injury) Code(s): N17.9 - ACUTE KIDNEY FAILURE, UNSPECIFIED (2) Acute respiratory failure with hypoxia Code(s): J96.01 - ACUTE RESPIRATORY FAILURE WITH HYPOXIA (3) Anemia Code(s): D64.9 - ANEMIA, UNSPECIFIED Qualifiers: Anemia type: unspecified type Qualified Code(s): D64.9 - Anemia, unspecified (4) Demand ischemia Code(s): I24.8 - OTHER FORMS OF ACUTE ISCHEMIC HEART DISEASE (5) Influenza B Code(s): J10.1 - FLU DUE TO OTH IDENT INFLUENZA VIRUS W OTH RESP MANIFEST (6) Pneumonia Code(s): J18.9 - PNEUMONIA, UNSPECIFIED ORGANISM Qualifiers: Laterality: bilateral Lung location: lower lobe of lung (7) Schizo affective schizophrenia Code(s): F25.0 - SCHIZOAFFECTIVE DISORDER, BIPOLAR TYPE (8) Sepsis Code(s): A41.9 - SEPSIS, UNSPECIFIED ORGANISM Qualifiers: Sepsis type: sepsis due to unspecified organism Qualified Code(s): A41.9 - Sepsis, unspecified organism Assessment/Plan completed Tamiflu pt clinically improving Lovenox for DVT prophylaxis physical therapy modified barium swallow study today to r/o aspiration. will follow Discussed with pts brother and also with nursing staff.
--- NOTE | 2018-03-15 11:25 | PN ---
Progress Note, [employer] - Note Progress Note: Selected Entries 03/13/18 03/13/18 03/13/18 02:00 06:00 10:00 Breakfast Lunch Supper Temperature 98.2 F 97.8 F 98 F 03/13/18 03/13/18 03/13/18 11:10 13:44 14:27 Breakfast 75% Lunch 75% Supper Temperature 98.4 F 03/13/18 03/13/18 03/13/18 18:00 18:33 22:00 Breakfast Lunch Supper 75% Temperature 97.6 F 97.6 F 03/14/18 03/14/18 03/14/18 01:59 06:00 11:32 Breakfast 100% Lunch Supper Temperature 97.5 F L 98.8 F Laboratory Tests 03/14/18 05:35 WBC 5.9 D Selected Entries 03/14/18 03/14/18 03/14/18 11:32 14:45 21:09 Breakfast 100% Lunch 75% Supper 75% Temperature 03/15/18 03/15/18 02:00 06:00 Breakfast Lunch Supper Temperature 97.2 F L 97.1 F L Laboratory Tests 03/14/18 05:35 Sodium 143 Nursing observed pt coughing on thin liquids and liquid medication. Silent aspiration can not be r/o at bedside. REC: MBS to more reliably and objectively assess swallowing function
--- NOTE | 2018-03-15 12:30 | PN ---
Progress Note, Physician History of Present Illness: Comfortable on RA. - Current Medication List Current Medications: Active Medications Acetaminophen (Tylenol -) 650 mg PO Q4H PRN PRN Reason: FEVER Last Admin: 03/12/18 16:00 Dose: 650 mg Acetaminophen (Tylenol -) 650 mg PO Q6H PRN PRN Reason: PAIN LEVEL 4 - 6 Albuterol Sulfate (Ventolin 0.083% Nebulizer Soln -) 1 amp NEB Q4H PRN PRN Reason: SHORT OF BREATH/WHEEZING Aripiprazole (Abilify) 5 mg PO DAILY [facility] Last Admin: 03/15/18 09:46 Dose: 5 mg Aspirin (Ecotrin -) 81 mg PO DAILY [facility] Last Admin: 03/15/18 09:44 Dose: 81 mg Bupropion HCl (Wellbutrin Xl -) 150 mg PO DAILY [facility] Last Admin: 03/15/18 09:44 Dose: 150 mg Enoxaparin Sodium (Lovenox -) 40 mg SQ DAILY [facility] Last Admin: 03/15/18 09:43 Dose: 40 mg Folic Acid (Folic Acid -) 1 mg PO DAILY [facility] Last Admin: 03/15/18 09:44 Dose: 1 mg Gabapentin (Neurontin -) 400 mg PO TID [facility] Last Admin: 03/15/18 05:24 Dose: 400 mg Piperacillin Sod/Tazobactam (Sod 2.25 gm/ Dextrose) 50 mls @ 100 mls/hr IVPB Q8H-IV GARRETT PRN Reason: Protocol Last Admin: 03/15/18 09:44 Dose: 100 mls/hr Metoprolol Succinate (Toprol Xl -) 12.5 mg PO DAILY [facility] Last Admin: 03/15/18 09:44 Dose: 12.5 mg Ranitidine HCl (Zantac -) 150 mg PO DAILY [facility] Last Admin: 03/15/18 09:44 Dose: 150 mg Valproate Sodium (Depakene -) 750 mg PO BID [facility] Last Admin: 03/15/18 09:45 Dose: 750 mg - Objective Vital Signs: Vital Signs Temperature 97.7 F 03/15/18 10:00 Pulse Rate 64 03/15/18 10:00 Respiratory Rate 22 03/15/18 10:00 Blood Pressure 143/88 03/15/18 10:00 O2 Sat by Pulse Oximetry (%) 93 L 03/15/18 09:00 Constitutional: Yes: No Distress, Calm, Thin Neck: Yes: Supple Cardiovascular: Yes: Regular Rate and Rhythm Respiratory: Yes: Regular, CTA Bilaterally Gastrointestinal: Yes: Normal Bowel Sounds, Soft Edema: No Labs: CBC, BMP 03/14/18 05:35 03/14/18 05:35 INR, PTT INR 1.11 (0.82-1.09) 03/07/18 16:28 - ....Imaging EKG: Report Reviewed (Tele: SR with PAC) Problem List - Problems (1) Sepsis Code(s): A41.9 - SEPSIS, UNSPECIFIED ORGANISM Qualifiers: Sepsis type: sepsis due to unspecified organism Qualified Code(s): A41.9 - Sepsis, unspecified organism (2) MARVIN (acute kidney injury) Code(s): N17.9 - ACUTE KIDNEY FAILURE, UNSPECIFIED (3) Pneumonia Code(s): J18.9 - PNEUMONIA, UNSPECIFIED ORGANISM Qualifiers: Laterality: bilateral Lung location: lower lobe of lung (4) Schizo affective schizophrenia Code(s): F25.0 - SCHIZOAFFECTIVE DISORDER, BIPOLAR TYPE (5) Anemia Code(s): D64.9 - ANEMIA, UNSPECIFIED Qualifiers: Anemia type: unspecified type Qualified Code(s): D64.9 - Anemia, unspecified (6) Demand ischemia Code(s): I24.8 - OTHER FORMS OF ACUTE ISCHEMIC HEART DISEASE (7) Premature atrial contraction Code(s): I49.1 - ATRIAL PREMATURE DEPOLARIZATION (8) Acute respiratory failure with hypoxia Code(s): J96.01 - ACUTE RESPIRATORY FAILURE WITH HYPOXIA (9) Influenza B Code(s): J10.1 - FLU DUE TO OT IDENT INFLUENZA VIRUS W OT RESP MANIFEST Assessment/Plan 03/12/2018 Echocardiography revealed normal LV size and function with LV EF of 55-60%, trace to mild MR and TR 1. Post acute hypoxic respiratory failure post mechanical ventilation/extubated 2. Influenza B 3. Multi-lobar pneumonia with sepsis syndrome, resolving 4. CAD post demand ischemic injury 5. PAC asymptomatic 6. History of schiozoaffective disorder 7. MARVIN resolved 8. Neutropenia and anemia 9. Hypokalemia improved 10. Pseudomonas UTI PLAN: 1. Continue ASA 81 qd, increase Toprol XL 25 qd 2. Monitor Hg and maintain equal or > 8.0 3. DVT and GI prophylaxis, complete abx course, finished Tamiflu, MBS r/o aspiration 4. O2 to keep SpO2 >90%, aspiration precautions
--- NOTE | 2018-03-15 13:28 | PN ---
Progress Note, Physician History of Present Illness: pulmonary alert,comfortable,-resp distress - Current Medication List Current Medications: Active Medications Acetaminophen (Tylenol -) 650 mg PO Q4H PRN PRN Reason: FEVER Last Admin: 03/12/18 16:00 Dose: 650 mg Acetaminophen (Tylenol -) 650 mg PO Q6H PRN PRN Reason: PAIN LEVEL 4 - 6 Albuterol Sulfate (Ventolin 0.083% Nebulizer Soln -) 1 amp NEB Q4H PRN PRN Reason: SHORT OF BREATH/WHEEZING Aripiprazole (Abilify) 5 mg PO DAILY [facility] Last Admin: 03/15/18 09:46 Dose: 5 mg Aspirin (Ecotrin -) 81 mg PO DAILY [facility] Last Admin: 03/15/18 09:44 Dose: 81 mg Bupropion HCl (Wellbutrin Xl -) 150 mg PO DAILY [facility] Last Admin: 03/15/18 09:44 Dose: 150 mg Enoxaparin Sodium (Lovenox -) 40 mg SQ DAILY [facility] Last Admin: 03/15/18 09:43 Dose: 40 mg Folic Acid (Folic Acid -) 1 mg PO DAILY [facility] Last Admin: 03/15/18 09:44 Dose: 1 mg Gabapentin (Neurontin -) 400 mg PO TID [facility] Last Admin: 03/15/18 05:24 Dose: 400 mg Piperacillin Sod/Tazobactam (Sod 2.25 gm/ Dextrose) 50 mls @ 100 mls/hr IVPB Q8H-IV GARRETT PRN Reason: Protocol Last Admin: 03/15/18 09:44 Dose: 100 mls/hr Metoprolol Succinate (Toprol Xl -) 12.5 mg PO DAILY [facility] Last Admin: 03/15/18 09:44 Dose: 12.5 mg Ranitidine HCl (Zantac -) 150 mg PO DAILY [facility] Last Admin: 03/15/18 09:44 Dose: 150 mg Valproate Sodium (Depakene -) 750 mg PO BID [facility] Last Admin: 03/15/18 09:45 Dose: 750 mg - Objective Vital Signs: Vital Signs Temperature 97.7 F 03/15/18 10:00 Pulse Rate 64 03/15/18 10:00 Respiratory Rate 22 03/15/18 10:00 Blood Pressure 143/88 03/15/18 10:00 O2 Sat by Pulse Oximetry (%) 93 L 03/15/18 09:00 Constitutional: Yes: Well Nourished, Calm Eyes: Yes: WNL HENT: Yes: WNL Neck: Yes: WNL Cardiovascular: Yes: Regular Rate and Rhythm, S1, S2 Respiratory: Yes: Rhonchi (scattered lauren rhonchi) Gastrointestinal: Yes: Normal Bowel Sounds, Soft Extremities: Yes: WNL Edema: No Labs: CBC, BMP Problem List - Problems (1) MARVIN (acute kidney injury) Code(s): N17.9 - ACUTE KIDNEY FAILURE, UNSPECIFIED (2) Acute respiratory failure with hypoxia Code(s): J96.01 - ACUTE RESPIRATORY FAILURE WITH HYPOXIA (3) Influenza B Code(s): J10.1 - FLU DUE TO OTH IDENT INFLUENZA VIRUS W OTH RESP MANIFEST (4) Pneumonia Code(s): J18.9 - PNEUMONIA, UNSPECIFIED ORGANISM Qualifiers: Laterality: bilateral Lung location: lower lobe of lung (5) Schizo affective schizophrenia Code(s): F25.0 - SCHIZOAFFECTIVE DISORDER, BIPOLAR TYPE Assessment/Plan A/P s/p Acute Hypoxic Respiratory Failure Pneumonia Influenza B CAD Acute Kidney Injury improved Schizoaffective Disorder - antibiotics per ID - PO as tolerated - O2 to keep SpO2 >90% - aspiration precautions - DVT prophylaxis DR ELIZABETH
--- NOTE | 2018-03-15 15:17 | PN ---
Progress Note, Physician History of Present Illness: patient stable doing well no new issues still with cough - Current Medication List Current Medications: Active Medications Acetaminophen (Tylenol -) 650 mg PO Q4H PRN PRN Reason: FEVER Last Admin: 03/12/18 16:00 Dose: 650 mg Acetaminophen (Tylenol -) 650 mg PO Q6H PRN PRN Reason: PAIN LEVEL 4 - 6 Albuterol Sulfate (Ventolin 0.083% Nebulizer Soln -) 1 amp NEB Q4H PRN PRN Reason: SHORT OF BREATH/WHEEZING Aripiprazole (Abilify) 5 mg PO DAILY [facility] Last Admin: 03/15/18 09:46 Dose: 5 mg Aspirin (Ecotrin -) 81 mg PO DAILY [facility] Last Admin: 03/15/18 09:44 Dose: 81 mg Bupropion HCl (Wellbutrin Xl -) 150 mg PO DAILY [facility] Last Admin: 03/15/18 09:44 Dose: 150 mg Enoxaparin Sodium (Lovenox -) 40 mg SQ DAILY [facility] Last Admin: 03/15/18 09:43 Dose: 40 mg Folic Acid (Folic Acid -) 1 mg PO DAILY [facility] Last Admin: 03/15/18 09:44 Dose: 1 mg Gabapentin (Neurontin -) 400 mg PO TID [facility] Last Admin: 03/15/18 14:44 Dose: 400 mg Piperacillin Sod/Tazobactam (Sod 2.25 gm/ Dextrose) 50 mls @ 100 mls/hr IVPB Q8H-IV GARRETT PRN Reason: Protocol Last Admin: 03/15/18 09:44 Dose: 100 mls/hr Metoprolol Succinate (Toprol Xl -) 12.5 mg PO DAILY [facility] Last Admin: 03/15/18 09:44 Dose: 12.5 mg Ranitidine HCl (Zantac -) 150 mg PO DAILY [facility] Last Admin: 03/15/18 09:44 Dose: 150 mg Valproate Sodium (Depakene -) 750 mg PO BID [facility] Last Admin: 03/15/18 09:45 Dose: 750 mg - Objective Vital Signs: Vital Signs Temperature 97.7 F 03/15/18 10:00 Pulse Rate 64 03/15/18 10:00 Respiratory Rate 22 03/15/18 10:00 Blood Pressure 143/88 03/15/18 10:00 O2 Sat by Pulse Oximetry (%) 93 L 03/15/18 09:00 Constitutional: Yes: No Distress, Calm Cardiovascular: Yes: Regular Rate and Rhythm Respiratory: Yes: Regular, CTA Bilaterally Gastrointestinal: Yes: Normal Bowel Sounds, Soft Musculoskeletal: Yes: WNL Extremities: Yes: WNL Neurological: Yes: Alert, Other Labs: CBC, BMP 03/14/18 05:35 03/14/18 05:35 INR, PTT INR 1.11 (0.82-1.09) 03/07/18 16:28 Assessment/Plan Problem List - Problems (1) Sepsis Code(s): A41.9 - SEPSIS, UNSPECIFIED ORGANISM Qualifiers: Sepsis type: sepsis due to unspecified organism Qualified Code(s): A41.9 - Sepsis, unspecified organism (2) MARVIN (acute kidney injury) Code(s): N17.9 - ACUTE KIDNEY FAILURE, UNSPECIFIED (3) Pneumonia Code(s): J18.9 - PNEUMONIA, UNSPECIFIED ORGANISM Qualifiers: Laterality: bilateral Lung location: lower lobe of lung (4) Schizo affective schizophrenia Code(s): F25.0 - SCHIZOAFFECTIVE DISORDER, BIPOLAR TYPE (5) Anemia Code(s): D64.9 - ANEMIA, UNSPECIFIED Qualifiers: Anemia type: unspecified type Qualified Code(s): D64.9 - Anemia, unspecified (6) Demand ischemia Code(s): I24.8 - OTHER FORMS OF ACUTE ISCHEMIC HEART DISEASE IMP: Acute Respiratory Failure Multilobar PNA Influenza B (+) Sepsis UTI AMS Schizoaffective D/O MARVIN plan patient getting swallow studies breathing improving will stop abx and monitor rest continue current mgmt
[2018-03-16] MEDS: GABAPENTIN 400 MG CAPSULE (FP) PO SCH ×2 (07:05→13:44)
[2018-03-16 07:42] LABS: HEMATOCRIT 31.8 % (35.4-49); HEMOGLOBIN 11.2 GM/dL (11.7-16.9); MCH 33.8 pg (25.7-33.7); MCHC 35.2 g/dl (32.0-35.9); MEAN CELL VOLUME 96.2 fl (80-96); MEAN PLT VOLUME 6.5 fl (7.5-11.1); PLATELET COUNT 388 K/MM3 (134-434); RBC 3.31 M/mm3 (4.00-5.60); RDW 13.1 % (11.9-15.9)
[2018-03-16 08:27] LABS: CHLORIDE 104 mmol/L (98-107); POTASSIUM 4.2 mmol/L (3.5-5.1); SODIUM 139 mmol/L (136-145)
[2018-03-16 08:49] LABS: ALBUMIN 2.3 g/dl (3.4-5.0); ALK PHOS 61 U/L (45-117); ANION GAP 6 (8-16); BILIRUBIN,TOTAL 0.7 mg/dL (0.2-1.0); BLOOD UREA NITROGEN 14 mg/dL (7-18); CALCIUM 8.1 mg/dL (8.5-10.1); CO2 29 mmol/L (21-32); CREATININE 0.7 mg/dL (0.7-1.3); GLUCOSE,RANDOM 78 mg/dL (74-106); SGOT/AST 12 U/L (15-37); SGPT/ALT 9 U/L (12-78); TOT PROT 6.1 g/dl (6.4-8.2)
[2018-03-16] MEDS ORDERED: PT OWN MED DRAWER 7, Y5N ONE (09:48)
[2018-03-16] MEDS: ENOXAPARIN NA (PORCINE) 40 MG/0.4 ML DISP.SYRIN SQ SCH (10:43)
[2018-03-16] MEDS: ARIPiprazole 5 MG TABLET (FP) PO SCH (10:44)
[2018-03-16] MEDS: metoPROLOL SUCCINATE 25 MG TAB.SR.24H (FP) PO SCH (10:44)
[2018-03-16] MEDS: VALPROATE SODIUM 250 MG/5 ML UNIT DOSE CUP PO SCH (10:44)
[2018-03-16] MEDS: FOLIC ACID 1 MG TABLET (FP) PO SCH (10:45)
[2018-03-16] MEDS: RANITIDINE HCL 150 MG TABLET (FP) PO SCH (10:45)
[2018-03-16] MEDS: ASPIRIN COATED 81 MG TABLET.EC PO SCH (10:45)
[2018-03-16 11:09] LABS: PLATELET ESTIMATE NORMAL
--- NOTE | 2018-03-16 11:30 | PN ---
Progress Note, Physician History of Present Illness: Pt states he feels well. Breathing comfortably, denies cough. Remains afebrile, without new complaints. - Current Medication List Current Medications: Active Medications Acetaminophen (Tylenol -) 650 mg PO Q4H PRN PRN Reason: FEVER Last Admin: 03/12/18 16:00 Dose: 650 mg Acetaminophen (Tylenol -) 650 mg PO Q6H PRN PRN Reason: PAIN LEVEL 4 - 6 Albuterol Sulfate (Ventolin 0.083% Nebulizer Soln -) 1 amp NEB Q4H PRN PRN Reason: SHORT OF BREATH/WHEEZING Aripiprazole (Abilify) 5 mg PO DAILY [facility] Last Admin: 03/16/18 10:44 Dose: 5 mg Aspirin (Ecotrin -) 81 mg PO DAILY [facility] Last Admin: 03/16/18 10:45 Dose: 81 mg Bupropion HCl (Wellbutrin Xl -) 150 mg PO DAILY [facility] Last Admin: 03/16/18 10:45 Dose: 150 mg Enoxaparin Sodium (Lovenox -) 40 mg SQ DAILY [facility] Last Admin: 03/16/18 10:43 Dose: 40 mg Folic Acid (Folic Acid -) 1 mg PO DAILY [facility] Last Admin: 03/16/18 10:45 Dose: 1 mg Gabapentin (Neurontin -) 400 mg PO TID [facility] Last Admin: 03/16/18 07:05 Dose: 400 mg Metoprolol Succinate (Toprol Xl -) 12.5 mg PO DAILY [facility] Last Admin: 03/16/18 10:44 Dose: 12.5 mg Ranitidine HCl (Zantac -) 150 mg PO DAILY [facility] Last Admin: 03/16/18 10:45 Dose: 150 mg Valproate Sodium (Depakene -) 750 mg PO BID [facility] Last Admin: 03/16/18 10:44 Dose: 750 mg - Objective Vital Signs: Vital Signs Temperature 96.3 F L 03/16/18 10:00 Pulse Rate 59 L 03/16/18 10:00 Respiratory Rate 20 03/16/18 10:00 Blood Pressure 98/60 03/16/18 10:00 O2 Sat by Pulse Oximetry (%) 94 L 03/15/18 21:00 Constitutional: Yes: No Distress, Calm Cardiovascular: Yes: Regular Rate and Rhythm Respiratory: Yes: CTA Bilaterally Gastrointestinal: Yes: Normal Bowel Sounds, Soft Extremities: Yes: WNL Neurological: Yes: Alert Labs: CBC, BMP 03/16/18 07:00 03/16/18 07:00 INR, PTT INR 1.11 (0.82-1.09) 03/07/18 16:28 Problem List - Problems (1) MARVIN (acute kidney injury) Code(s): N17.9 - ACUTE KIDNEY FAILURE, UNSPECIFIED (2) Acute respiratory failure with hypoxia Code(s): J96.01 - ACUTE RESPIRATORY FAILURE WITH HYPOXIA (3) Anemia Code(s): D64.9 - ANEMIA, UNSPECIFIED Qualifiers: Anemia type: unspecified type Qualified Code(s): D64.9 - Anemia, unspecified (4) Demand ischemia Code(s): I24.8 - OTHER FORMS OF ACUTE ISCHEMIC HEART DISEASE (5) Influenza B Code(s): J10.1 - FLU DUE TO OTH IDENT INFLUENZA VIRUS W OTH RESP MANIFEST (6) Pneumonia Code(s): J18.9 - PNEUMONIA, UNSPECIFIED ORGANISM Qualifiers: Laterality: bilateral Lung location: lower lobe of lung (7) Sepsis Code(s): A41.9 - SEPSIS, UNSPECIFIED ORGANISM Qualifiers: Sepsis type: sepsis due to unspecified organism Qualified Code(s): A41.9 - Sepsis, unspecified organism Assessment/Plan Acute respiratory failure Multilobar PNA Influenza B UTI MARVIN Sepsis - Pt clinically improved - s/p course of antibiotics - continue monitor
--- NOTE | 2018-03-16 12:43 | PN ---
Progress Note (short form) - Note Progress Note: Overall appears better. No CP or SOB. No acute events overnight. Intake & Output 03/13/18 03/14/18 03/15/18 03/16/18 23:59 23:59 23:59 23:59 Intake Total 1500 750 170 0 Balance 1500 750 170 0 Weight 152 lb 8 oz 150 lb 0.6 oz Last Vital Signs Temp Pulse Resp BP Pulse Ox 96.3 F L 59 L 20 98/60 94 L 03/16/18 10:00 03/16/18 10:00 03/16/18 10:00 03/16/18 10:00 03/15/18 21:00 Active Medications Acetaminophen (Tylenol -) 650 mg PO Q4H PRN PRN Reason: FEVER Last Admin: 03/12/18 16:00 Dose: 650 mg Acetaminophen (Tylenol -) 650 mg PO Q6H PRN PRN Reason: PAIN LEVEL 4 - 6 Albuterol Sulfate (Ventolin 0.083% Nebulizer Soln -) 1 amp NEB Q4H PRN PRN Reason: SHORT OF BREATH/WHEEZING Last Admin: 03/16/18 10:45 Dose: 1 amp Aripiprazole (Abilify) 5 mg PO DAILY [facility] Last Admin: 03/16/18 10:44 Dose: 5 mg Aspirin (Ecotrin -) 81 mg PO DAILY [facility] Last Admin: 03/16/18 10:45 Dose: 81 mg Bupropion HCl (Wellbutrin Xl -) 150 mg PO DAILY [facility] Last Admin: 03/16/18 10:45 Dose: 150 mg Enoxaparin Sodium (Lovenox -) 40 mg SQ DAILY [facility] Last Admin: 03/16/18 10:43 Dose: 40 mg Folic Acid (Folic Acid -) 1 mg PO DAILY [facility] Last Admin: 03/16/18 10:45 Dose: 1 mg Gabapentin (Neurontin -) 400 mg PO TID [facility] Last Admin: 03/16/18 07:05 Dose: 400 mg Metoprolol Succinate (Toprol Xl -) 12.5 mg PO DAILY [facility] Last Admin: 03/16/18 10:44 Dose: 12.5 mg Ranitidine HCl (Zantac -) 150 mg PO DAILY [facility] Last Admin: 03/16/18 10:45 Dose: 150 mg Valproate Sodium (Depakene -) 750 mg PO BID [facility] Last Admin: 03/16/18 10:44 Dose: 750 mg Gen: Awake and alert, NAD HEENT: PERRL, (-) JVP Pulm: Scattered rhonchi, no wheeze CV: RRR, (-) murmur ABD; soft, (+) BS, NT Ext: (+) PP Neuro: Awake and alert, non-focal Laboratory Results - last 24 hr 03/16/18 03/16/18 07:00 07:00 WBC 7.0 RBC 3.31 L Hgb 11.2 L Hct 31.8 L MCV 96.2 H MCH 33.8 H MCHC 35.2 RDW 13.1 Plt Count 388 D MPV 6.5 L Total Counted 96 Neutrophils % No Result Required. Neutrophils % (Manual) 51.0 Band Neutrophils % 0.0 Lymphocytes % No Result Required. Lymphocytes % (Manual) 32.3 Monocytes % (Manual) 9 Eosinophils % (Manual) 2.1 Basophils % (Manual) 0.0 Myelocytes % (Man) 1 Promyelocytes % (Man) 0 Blast Cells % (Manual) 0 Nucleated RBC % 0 Metamyelocytes 2 Platelet Estimate Normal Platelet Comment Present Sodium 139 Potassium 4.2 Chloride 104 Carbon Dioxide 29 Anion Gap 6 L BUN 14 D Creatinine 0.7 Creat Clearance w eGFR > 60 Random Glucose 78 Calcium 8.1 L Total Bilirubin 0.7 D AST 12 L D ALT 9 L Alkaline Phosphatase 61 Total Protein 6.1 L Albumin 2.3 L D Problem List - Problems (1) Sepsis Code(s): A41.9 - SEPSIS, UNSPECIFIED ORGANISM Qualifiers: Sepsis type: sepsis due to unspecified organism Qualified Code(s): A41.9 - Sepsis, unspecified organism (2) MARVIN (acute kidney injury) Code(s): N17.9 - ACUTE KIDNEY FAILURE, UNSPECIFIED (3) Pneumonia Code(s): J18.9 - PNEUMONIA, UNSPECIFIED ORGANISM Qualifiers: Laterality: bilateral Lung location: lower lobe of lung (4) Schizo affective schizophrenia Code(s): F25.0 - SCHIZOAFFECTIVE DISORDER, BIPOLAR TYPE (5) Anemia Code(s): D64.9 - ANEMIA, UNSPECIFIED Qualifiers: Anemia type: unspecified type Qualified Code(s): D64.9 - Anemia, unspecified (6) Demand ischemia Code(s): I24.8 - OTHER FORMS OF ACUTE ISCHEMIC HEART DISEASE IMP: Acute Respiratory Failure Multilobar PNA Influenza B (+) Sepsis UTI AMS Schizoaffective D/O MARVIN Demand ischemia PLAN: S/P ABX course S/P Tamiflu Lovenox PO as tolerated BD TX D/C planning Dr Conley
--- NOTE | 2018-03-16 13:33 | DS ---
Physical Examination Vital Signs: Vital Signs Temperature 96.3 F L 03/16/18 10:00 Pulse Rate 59 L 03/16/18 10:00 Respiratory Rate 20 03/16/18 10:00 Blood Pressure 98/60 03/16/18 10:00 O2 Sat by Pulse Oximetry (%) 94 L 03/15/18 21:00 Findings/Remarks: awake. comfortable periods of agitation. engages in meaningful conversation. all f/u noted afebrile off abx Constitutional: Yes: No Distress Eyes: Yes: Conjunctiva Clear Neck: Yes: Supple Cardiovascular: Yes: Regular Rate and Rhythm Respiratory: Yes: Diminished Gastrointestinal: Yes: Soft Edema: No Neurological: Yes: Alert Labs: CBC, BMP 03/16/18 07:00 03/16/18 07:00 Discharge Summary Reason For Visit: SEPTIC SHOCK Current Active Problems MARVIN (acute kidney injury) (Acute) Acute respiratory failure with hypoxia (Acute) Anemia (Acute) Demand ischemia (Acute) Influenza B (Acute) Pneumonia (Acute) Premature atrial contraction (Acute) Schizo affective schizophrenia (Acute) Sepsis (Acute) Septic shock (Acute) Hospital Course: This is a 73 year old male with pmhx 30 year hx of schizophrenia/bipolar disorder, , hip replacement 09/2017 at [facility] then went to [facility] 3 years, CHF, DVT(of LLE), paroxsysmal afib and hypertension-- Admitted from [facility] due to ams/ fever pt found to have Infuenza pt went into respiratory distress-- intubated successfully extubated treated with abx/ tamiflu Initially admitted to icu stablized now stable for d/c back to [facility] I had discussed case with pts brother yesterday meds reconcilled Discussed with Dr. Self also today as well as with nursing staff D/c time 40 min in examining / documenting and coordating care. Condition: Stable - Instructions Referrals: Danae Ralph MD [Primary Care Provider] - Disposition: RESIDENTIAL FACILITY - Home Medications Comprehensive Discharge Medication List: Ambulatory Orders Aripiprazole [Abilify] 5 mg PO DAILY 03/07/18 Bisacodyl [Dulcolax] 10 mg RC Q3D 03/07/18 Bupropion HCl [Wellbutrin Sr] 150 mg PO DAILY 03/07/18 Enoxaparin [Lovenox -] 40 mg SQ DAILY 03/07/18 Folic Acid 1 mg PO DAILY 03/07/18 Gabapentin 400 mg PO TID 03/07/18 Multivitamins [Multivit ([facility] Formulary)] 1 tab PO DAILY 03/07/18 Pantoprazole Sodium 40 mg PO DAILY 03/07/18 Polyethylene Glycol 3350 [Miralax 119 gm Btl -] 17 gm PO DAILY 03/07/18 Valproic Acid [Depakene] 750 mg PO BID 03/07/18 Albuterol 0.083% Nebulizer Danielle [Ventolin 0.083% Nebulizer Soln -] 1 amp NEB Q4H PRN amp 03/16/18 Aspirin Coated [Ecotrin -] 81 mg PO DAILY tablet.ec 03/16/18 Metoprolol Succinate [Toprol XL -] 12.5 mg PO DAILY tab.sr.24h 03/16/18
[2018-03-16 14:18] VITALS: PULSE 70
[2018-03-16 18:14] VITALS: BP 140/81; TEMP 97.4
== END 2018-03-16 18:48 | DRG 871 ==
LOC: JER 15:49 → JERBED 17:55 → JICU 19:15 → J4S 03-13 17:08
PROVIDERS: ADMIT Internal Medicine; ATTEND Internal Medicine
PROC: 5A1945Z Respiratory Ventilation, 24-96 Consecutive Hours (ICD-10-PCS; principal; 2018-03-07)
PROC: 0BH18EZ Insertion of Endotracheal Airway into Trachea, Via Natural or Artificial Opening Endoscopic (ICD-10-PCS; 2018-03-07)
PROC: 05H633Z Insertion of Infusion Device into Left Subclavian Vein, Percutaneous Approach (ICD-10-PCS; 2018-03-07)
DX: A41.9 Sepsis, unspecified organism (principal); R65.21 Severe sepsis with septic shock; J11.00 Influenza due to unidentified influenza virus with unspecified type of pneumonia; J96.01 Acute respiratory failure with hypoxia; N17.9 Acute kidney failure, unspecified; N39.0 Urinary tract infection, site not specified; I24.8 Other forms of acute ischemic heart disease; J98.11 Atelectasis; F25.0 Schizoaffective disorder, bipolar type; I11.0 Hypertensive heart disease with heart failure; I50.9 Heart failure, unspecified; I48.91 Unspecified atrial fibrillation; D70.9 Neutropenia, unspecified; R00.1 Bradycardia, unspecified; Z96.649 Presence of unspecified artificial hip joint; Z86.718 Personal history of other venous thrombosis and embolism; K21.9 Gastro-esophageal reflux disease without esophagitis; D64.9 Anemia, unspecified; E87.6 Hypokalemia; K59.00 Constipation, unspecified; I25.10 Atherosclerotic heart disease of native coronary artery without angina pectoris; I48.0 Paroxysmal atrial fibrillation
CPT/HCPCS: 31500; 36415; 36600; 71045-TC-FY; 74230-TC-FY; 80048; 80053; 81003; 81015; 82550; 82553; 82803; 82962; 83605; 83735; 84100; 84484; 85025; 85027; 85610; 85730; 87040; 87070; 87086; 87186; 87205; 87804; 87899; 90670; 92611-GN; 93005; 93010; 93306-TC; 94002; 94640; 97116-GP; 97161-GP; 99285-25; J7030